=== PATIENT | female | born 1960 | race Caucasian/White ===

== ENCOUNTER → 2018-08-03 | Outpatient (CLI) | payer BC ==
[2018-08-03 11:45] LABS: BASO # 0.1 10^3/uL (0.0-0.2); BASO % 1.4 % (0.0-1.0); EOS # 0.2 10^3/uL (0.0-0.50); EOS % 3.3 % (0.0-3.0); HEMATOCRIT 40.9 % (36.0-47.0); HEMOGLOBIN 14.2 g/dl (12.0-15.5); LYMPH # 1.8 10^3/uL (1.5-4.5); LYMPH % 31.1 % (24.0-44.0); MEAN CORPUSCULAR HEMOGLOBIN 32.4 pg (27.0-33.0); MEAN CORPUSCULAR HGB CONC 34.7 g/dl (32.0-36.5); MEAN CORPUSCULAR VOLUME 93.4 fl (80.0-96.0); MONO # 0.7 10^3/uL (0.0-0.8); MONO % 12.5 % (0.0-5.0); NEUTROPHILS % 51.2 % (36.0-66.0); PLATELET COUNT, AUTOMATED 163 10^3/uL (150-450); RED BLOOD COUNT 4.38 10^6/uL (4.00-5.40); WHITE BLOOD COUNT 5.8 10^3/uL (4.0-10.0)
[2018-08-03 11:53] LABS: ALBUMIN 3.8 GM/DL (3.2-5.2); ALT/SGPT 37 U/L (12-78); BILIRUBIN,TOTAL 0.6 MG/DL (0.2-1.0); BLOOD UREA NITROGEN 11 MG/DL (7-18); CALCIUM LEVEL 9.1 MG/DL (8.5-10.1); CARBON DIOXIDE LEVEL 26 MEQ/L (21-32); CHLORIDE LEVEL 98 MEQ/L (98-107); CHOLESTEROL LEVEL 182 MG/DL (<200); CREATININE FOR GFR 0.68 MG/DL (0.55-1.30); GLOMERULAR FILTRATION RATE > 60.0 (>51); GLUCOSE, FASTING 80 MG/DL (70-100); HDL CHOLESTEROL 50 MG/DL (>40); LDL CHOLESTEROL 113 MG/DL (<100); NON-HDL-C 132 MG/DL; POTASSIUM SERUM 4.4 MEQ/L (3.5-5.1); SODIUM LEVEL 132 MEQ/L (136-145); THYROXINE (T4) 6.4 UG/DL (4.5-12.0); TOTAL PROTEIN 7.5 GM/DL (6.4-8.2); TRIGLYCERIDES LEVEL 97 MG/DL (<150)
== END ==
LOC: M LRY 08:46
PROVIDERS: ATTEND Physician Assistant Medical
DX: R53.83 Other fatigue (principal); I10 Essential (primary) hypertension; E78.2 Mixed hyperlipidemia

== ENCOUNTER → 2018-12-02 | Outpatient (REF) | payer BC | LOC: M SFHCPLAZ 18:19 | PROVIDERS: ATTEND Dermatology | DX: R21 Rash and other nonspecific skin eruption (principal) ==

== ENCOUNTER → 2018-12-10 | Outpatient (CLI) | payer BC ==
[2018-12-10 11:10] LABS: BASO # 0.1 10^3/uL (0.0-0.2); BASO % 1.1 % (0.0-1.0); EOS # 0.2 10^3/uL (0.0-0.50); EOS % 3.9 % (0.0-3.0); HEMATOCRIT 46.5 % (36.0-47.0); HEMOGLOBIN 16.2 g/dl (12.0-15.5); LYMPH # 1.5 10^3/uL (1.5-4.5); LYMPH % 26.2 % (24.0-44.0); MEAN CORPUSCULAR HEMOGLOBIN 33.5 pg (27.0-33.0); MEAN CORPUSCULAR HGB CONC 34.8 g/dl (32.0-36.5); MEAN CORPUSCULAR VOLUME 96.1 fl (80.0-96.0); MONO # 0.7 10^3/uL (0.0-0.8); MONO % 11.8 % (0.0-5.0); NEUTROPHILS # 3.2 10^3/uL (1.8-7.7); NEUTROPHILS % 56.3 % (36.0-66.0); RED BLOOD COUNT 4.84 10^6/uL (4.00-5.40); WHITE BLOOD COUNT 5.6 10^3/uL (4.0-10.0)
[2018-12-10 11:22] LABS: ALBUMIN 3.5 GM/DL (3.2-5.2); ALT/SGPT 43 U/L (12-78); BILIRUBIN,TOTAL 0.8 MG/DL (0.2-1.0); BLOOD UREA NITROGEN 11 MG/DL (7-18); CALCIUM LEVEL 8.9 MG/DL (8.5-10.1); CARBON DIOXIDE LEVEL 28 MEQ/L (21-32); CHLORIDE LEVEL 96 MEQ/L (98-107); CHOLESTEROL LEVEL 197 MG/DL (<200); FREE T4 0.81 NG/DL (0.76-1.46); GLOMERULAR FILTRATION RATE > 60.0 (>51); GLUCOSE, FASTING 86 MG/DL (70-100); HDL CHOLESTEROL 49 MG/DL (>40); LDL CHOLESTEROL 122 MG/DL (<100); NON-HDL-C 148 MG/DL; POTASSIUM SERUM 4.9 MEQ/L (3.5-5.1); SODIUM LEVEL 131 MEQ/L (136-145); TRIGLYCERIDES LEVEL 129 MG/DL (<150)
[2018-12-10 11:23] LABS: TOTAL 25(OH) VITAMIN D 10.2 NG/ML (30.0-100.0)
[2018-12-10 11:24] LABS: PLATELET COUNT, AUTOMATED 138 10^3/uL (150-450)
== END ==
LOC: M LRY 08:04
PROVIDERS: ATTEND Physician Assistant Medical
DX: R53.83 Other fatigue (principal); I10 Essential (primary) hypertension; E78.2 Mixed hyperlipidemia

== ENCOUNTER → 2018-12-24 | Outpatient (REF) | payer BC ==
[2018-12-24 11:24] LABS: BASO # 0.1 10^3/uL (0.0-0.2); BASO % 1.1 % (0.0-1.0); EOS # 0.3 10^3/uL (0.0-0.50); EOS % 4.6 % (0.0-3.0); HEMATOCRIT 45.9 % (36.0-47.0); HEMOGLOBIN 15.9 g/dl (12.0-15.5); LYMPH # 1.7 10^3/uL (1.5-4.5); LYMPH % 30.9 % (24.0-44.0); MEAN CORPUSCULAR HEMOGLOBIN 33.2 pg (27.0-33.0); MEAN CORPUSCULAR HGB CONC 34.6 g/dl (32.0-36.5); MEAN CORPUSCULAR VOLUME 95.8 fl (80.0-96.0); MONO # 0.4 10^3/uL (0.0-0.8); MONO % 8.1 % (0.0-5.0); NEUTROPHILS # 2.9 10^3/uL (1.8-7.7); NEUTROPHILS % 54.6 % (36.0-66.0); PLATELET COUNT, AUTOMATED 135 10^3/uL (150-450); RED BLOOD COUNT 4.79 10^6/uL (4.00-5.40); WHITE BLOOD COUNT 5.4 10^3/uL (4.0-10.0)
[2018-12-24 11:41] LABS: HEMOGLOBIN A1c 5.2 %
[2018-12-24 11:44] LABS: ALBUMIN 3.3 GM/DL (3.2-5.2); ALT/SGPT 40 U/L (12-78); BILIRUBIN,TOTAL 0.3 MG/DL (0.2-1.0); BLOOD UREA NITROGEN 15 MG/DL (7-18); CALCIUM LEVEL 8.5 MG/DL (8.5-10.1); CARBON DIOXIDE LEVEL 23 MEQ/L (21-32); CHLORIDE LEVEL 103 MEQ/L (98-107); CREATININE FOR GFR 0.68 MG/DL (0.55-1.30); FERRITIN 606 NG/ML (8-252); GLOMERULAR FILTRATION RATE > 60.0 (>51); GLUCOSE, FASTING 89 MG/DL (70-100); IRON (FE) 105 UG/DL (50-170); PERCENT SATURATION 40.9 % (13.2-45.0); POTASSIUM SERUM 4.2 MEQ/L (3.5-5.1); SODIUM LEVEL 134 MEQ/L (136-145); TOTAL IRON BINDING CAPACITY 257 UG/DL (250-450); TOTAL PROTEIN 7.4 GM/DL (6.4-8.2)
[2018-12-24 11:49] LABS: HEPATITIS B SURFACE ANTIBODY NEGATIVE (POSITIVE)
[2018-12-24 11:59] LABS: HEPATITIS B SURFACE ANTIGEN NEGATIVE (NEGATIVE)
== END ==
LOC: M SFHCPLAZ 08:29
PROVIDERS: ATTEND Dermatology
DX: R21 Rash and other nonspecific skin eruption (principal)

== ENCOUNTER → 2019-01-31 | Outpatient (REF) | payer BC ==
[~2019-01-31] MED LIST: BETA250027 PO; BYST10TA2 PO; CENT1TAB PO; COQ150CH PO; FISH1000 PO; LOSA50TA88 PO; LOVA20TA2 PO; NADO40TA PO; NAPR-885 PO; VITA1CAP25 PO
[2019-02-08 00:07] LABS: PORPHOBILINOGEN LEVEL URINE 0.4 mg/L (0.0-2.0)
== END ==
LOC: M SFHCPLAZ 14:51
PROVIDERS: ATTEND Dermatology
DX: R21 Rash and other nonspecific skin eruption (principal)

== ENCOUNTER → 2019-02-11 | Outpatient (REF) | payer BC ==
[2019-02-11 12:44] LABS: HEMOGLOBIN 16.3 g/dl (12.0-15.5); MEAN CORPUSCULAR HEMOGLOBIN 32.9 pg (27.0-33.0); MEAN CORPUSCULAR VOLUME 96.8 fl (80.0-96.0); PLATELET COUNT, AUTOMATED 139 10^3/uL (150-450); RED BLOOD COUNT 4.96 10^6/uL (4.00-5.40); WHITE BLOOD COUNT 7.4 10^3/uL (4.0-10.0)
== END ==
LOC: M SFHCLERA 08:32
PROVIDERS: ATTEND Dermatology
DX: E80.1 Porphyria cutanea tarda (principal)

== ENCOUNTER 2019-04-15 07:49 | Outpatient (CLI) | payer OTHER ==
[~2019-04-15] VITALS: Ht 162.6 cm; Wt 64.2 kg
[~2019-04-15 07:49] MED LIST changes: +BETA2500 PO; -BETA250027 PO; -VITA1CAP25 PO
[2019-04-15 08:05] VITALS: BP 158/72
[2019-04-15 08:50] VITALS: BP 139/62
[2019-04-15 10:12] LABS: BASO # 0.1 10^3/uL (0.0-0.2); BASO % 1.1 % (0.0-1.0); EOS # 0.3 10^3/uL (0.0-0.5); EOS % 3.5 % (0.0-3.0); HEMATOCRIT 42.2 % (36.0-47.0); HEMOGLOBIN 14.7 g/dl (12.0-15.5); LYMPH # 1.5 10^3/uL (1.5-5.0); LYMPH % 19.8 % (24.0-44.0); MEAN CORPUSCULAR HEMOGLOBIN 34.4 pg (27.0-33.0); MEAN CORPUSCULAR HGB CONC 34.8 g/dl (32.0-36.5); MEAN CORPUSCULAR VOLUME 98.8 fl (80.0-96.0); NEUTROPHILS # 4.5 10^3/uL (1.5-8.5); NEUTROPHILS % 60.5 % (36.0-66.0); PLATELET COUNT, AUTOMATED 167 10^3/uL (150-450); RED BLOOD COUNT 4.27 10^6/uL (4.00-5.40); WHITE BLOOD COUNT 7.4 10^3/uL (4.0-10.0)
== END 2019-04-15 08:50 | disposition home or self-care (01) ==
LOC: M INFU 07:49
PROVIDERS: ATTEND Dermatology
DX: E80.1 Porphyria cutanea tarda (principal)

== ENCOUNTER 2019-04-29 08:05 | Outpatient (CLI) | payer OTHER ==
[~2019-04-29] VITALS: Ht 162.6 cm; Wt 64.2 kg
[2019-04-29 08:22] VITALS: BP 139/62
[2019-04-29 09:20] VITALS: BP 140/82
[2019-04-29 09:24] LABS: HEMATOCRIT 40.9 % (36.0-47.0); HEMOGLOBIN 14.2 g/dl (12.0-15.5); MEAN CORPUSCULAR HEMOGLOBIN 34.1 pg (27.0-33.0); MEAN CORPUSCULAR HGB CONC 34.7 g/dl (32.0-36.5); MEAN CORPUSCULAR VOLUME 98.3 fl (80.0-96.0); PLATELET COUNT, AUTOMATED 119 10^3/uL (150-450); RED BLOOD COUNT 4.16 10^6/uL (4.00-5.40)
== END 2019-04-29 09:40 | disposition home or self-care (01) ==
LOC: M INFU 08:05
PROVIDERS: ATTEND Dermatology
DX: E80.1 Porphyria cutanea tarda (principal)

== ENCOUNTER → 2019-05-12 | Outpatient (REF) | payer OTHER | LOC: M SFHCPLAZ 08:47 | PROVIDERS: ATTEND Dermatology | DX: E80.1 Porphyria cutanea tarda (principal) ==

== ENCOUNTER 2019-05-27 06:51 | Outpatient (CLI) | payer OTHER ==
[~2019-05-27] VITALS: Ht 162.6 cm; Wt 64.2 kg
[2019-05-27 07:09] VITALS: BP 158/72
[2019-05-27 07:41] LABS: HEMATOCRIT 40.8 % (36.0-47.0); MEAN CORPUSCULAR HEMOGLOBIN 34.6 pg (27.0-33.0); MEAN CORPUSCULAR HGB CONC 34.3 g/dl (32.0-36.5); MEAN CORPUSCULAR VOLUME 100.7 fl (80.0-96.0); PLATELET COUNT, AUTOMATED 137 10^3/uL (150-450); RED BLOOD COUNT 4.05 10^6/uL (4.00-5.40); WHITE BLOOD COUNT 4.4 10^3/uL (4.0-10.0)
[2019-05-27 08:00] VITALS: BP 114/55
== END 2019-05-27 08:05 | disposition home or self-care (01) ==
LOC: M INFU 06:51
PROVIDERS: ATTEND Dermatology
DX: E80.1 Porphyria cutanea tarda (principal)

== ENCOUNTER → 2019-05-27 | Outpatient (CLI) | payer OTHER ==
[2019-05-27 08:35] LABS: BASO # 0.1 10^3/uL (0.0-0.2); BASO % 1.2 % (0.0-1.0); EOS # 0.1 10^3/uL (0.0-0.5); EOS % 3.3 % (0.0-3.0); HEMATOCRIT 41.3 % (36.0-47.0); HEMOGLOBIN 13.9 g/dl (12.0-15.5); LYMPH # 0.9 10^3/uL (1.5-5.0); LYMPH % 20.3 % (24.0-44.0); MEAN CORPUSCULAR HEMOGLOBIN 33.9 pg (27.0-33.0); MEAN CORPUSCULAR HGB CONC 33.7 g/dl (32.0-36.5); MEAN CORPUSCULAR VOLUME 100.7 fl (80.0-96.0); MONO # 0.5 10^3/uL (0.0-0.8); MONO % 12.6 % (0.0-5.0); NEUTROPHILS # 2.7 10^3/uL (1.5-8.5); NEUTROPHILS % 62.1 % (36.0-66.0); PLATELET COUNT, AUTOMATED 144 10^3/uL (150-450); WHITE BLOOD COUNT 4.3 10^3/uL (4.0-10.0)
[2019-05-27 09:18] LABS: ALBUMIN 3.4 GM/DL (3.2-5.2); ALT/SGPT 31 U/L (12-78); BILIRUBIN,TOTAL 0.8 MG/DL (0.2-1.0); BLOOD UREA NITROGEN 10 MG/DL (7-18); CALCIUM LEVEL 9.5 MG/DL (8.5-10.1); CARBON DIOXIDE LEVEL 29 MEQ/L (21-32); CHLORIDE LEVEL 99 MEQ/L (98-107); CHOLESTEROL LEVEL 166 MG/DL (<200); CREATININE FOR GFR 0.83 MG/DL (0.55-1.30); FREE T4 0.92 NG/DL (0.76-1.46); GLOMERULAR FILTRATION RATE > 60.0 (>51); GLUCOSE, FASTING 152 MG/DL (70-100); HDL CHOLESTEROL 50 MG/DL (>40); LDL CHOLESTEROL 86 MG/DL (<100); NON-HDL-C 116 MG/DL; POTASSIUM SERUM 3.3 MEQ/L (3.5-5.1); SODIUM LEVEL 135 MEQ/L (136-145); TOTAL PROTEIN 7.5 GM/DL (6.4-8.2); TRIGLYCERIDES LEVEL 150 MG/DL (<150)
[2019-05-27 09:51] LABS: TOTAL 25(OH) VITAMIN D 49.7 NG/ML (30.0-100.0)
== END ==
LOC: M LAB 07:04
PROVIDERS: ATTEND Physician Assistant Medical
DX: R53.83 Other fatigue (principal); I10 Essential (primary) hypertension; E78.2 Mixed hyperlipidemia; E55.9 Vitamin D deficiency, unspecified

== ENCOUNTER 2019-06-15 08:52 | Outpatient (CLI) | payer OTHER ==
[~2019-06-15] VITALS: Ht 162.6 cm; Wt 64.2 kg
[2019-06-15 08:55] VITALS: BP 140/64
[2019-06-15 09:52] LABS: HEMATOCRIT 38.1 % (36.0-47.0); HEMOGLOBIN 12.9 g/dl (12.0-15.5); MEAN CORPUSCULAR HEMOGLOBIN 33.9 pg (27.0-33.0); MEAN CORPUSCULAR HGB CONC 33.9 g/dl (32.0-36.5); MEAN CORPUSCULAR VOLUME 100.3 fl (80.0-96.0); PLATELET COUNT, AUTOMATED 138 10^3/uL (150-450); WHITE BLOOD COUNT 5.5 10^3/uL (4.0-10.0)
[2019-06-15] MEDS ORDERED: VITA1CAP25 PO (10:09)
[2019-06-15 10:15] VITALS: BP 142/60
== END 2019-06-15 10:15 | disposition home or self-care (01) ==
LOC: M INFU 08:52
PROVIDERS: ATTEND Dermatology
DX: E80.1 Porphyria cutanea tarda (principal)

== ENCOUNTER 2019-07-01 06:40 | Outpatient (CLI) | payer OTHER ==
[~2019-07-01] VITALS: Ht 162.6 cm; Wt 64.1 kg
[~2019-07-01 06:40] MED LIST changes: -BETA2500 PO; +BETA250027 PO; +VITA1CAP25 PO
[2019-07-01 06:45] VITALS: BP 160/92
[2019-07-01 07:20] VITALS: BP 156/80
[2019-07-01 07:36] LABS: HEMOGLOBIN 12.9 g/dl (12.0-15.5); MEAN CORPUSCULAR HEMOGLOBIN 33.6 pg (27.0-33.0); MEAN CORPUSCULAR HGB CONC 33.1 g/dl (32.0-36.5); MEAN CORPUSCULAR VOLUME 101.6 fl (80.0-96.0); PLATELET COUNT, AUTOMATED 132 10^3/uL (150-450); RED BLOOD COUNT 3.84 10^6/uL (4.00-5.40); WHITE BLOOD COUNT 5.7 10^3/uL (4.0-10.0)
[2019-07-01 07:44] VITALS: BP 164/84
== END 2019-07-01 07:45 | disposition home or self-care (01) ==
LOC: M INFU 06:40
PROVIDERS: ATTEND Dermatology
DX: E80.1 Porphyria cutanea tarda (principal)

== ENCOUNTER 2019-07-15 07:04 | Outpatient (CLI) | payer OTHER ==
[~2019-07-15] VITALS: Ht 162.6 cm; Wt 64.2 kg
[2019-07-15 07:22] VITALS: BP 173/72
[2019-07-15 07:33] VITALS: BP 108/52
[2019-07-15 07:51] LABS: HEMATOCRIT 38.1 % (36.0-47.0); HEMOGLOBIN 12.6 g/dl (12.0-15.5); MEAN CORPUSCULAR HEMOGLOBIN 34.3 pg (27.0-33.0); MEAN CORPUSCULAR HGB CONC 33.1 g/dl (32.0-36.5); MEAN CORPUSCULAR VOLUME 103.8 fl (80.0-96.0); PLATELET COUNT, AUTOMATED 156 10^3/uL (150-450); RED BLOOD COUNT 3.67 10^6/uL (4.00-5.40); WHITE BLOOD COUNT 6.6 10^3/uL (4.0-10.0)
[2019-07-15 08:10] VITALS: BP 167/74
== END 2019-07-15 08:10 | disposition home or self-care (01) ==
LOC: M INFU 07:04
PROVIDERS: ATTEND Dermatology
DX: E80.1 Porphyria cutanea tarda (principal)

== ENCOUNTER 2019-07-29 06:51 | Outpatient (CLI) | payer OTHER ==
[~2019-07-29] VITALS: Ht 162.6 cm; Wt 64.2 kg
[2019-07-29 06:55] VITALS: BP 177/77
[2019-07-29 07:30] VITALS: BP 174/74
[2019-07-29 07:30] LABS: HEMATOCRIT 34.8 % (36.0-47.0); HEMOGLOBIN 11.4 g/dl (12.0-15.5); MEAN CORPUSCULAR HEMOGLOBIN 33.7 pg (27.0-33.0); MEAN CORPUSCULAR HGB CONC 32.8 g/dl (32.0-36.5); PLATELET COUNT, AUTOMATED 120 10^3/uL (150-450); RED BLOOD COUNT 3.38 10^6/uL (4.00-5.40); WHITE BLOOD COUNT 4.6 10^3/uL (4.0-10.0)
[2019-07-29 07:45] VITALS: BP 187/79
== END 2019-07-29 07:45 | disposition home or self-care (01) ==
LOC: M INFU 06:51
PROVIDERS: ATTEND Dermatology
DX: E80.1 Porphyria cutanea tarda (principal)

== ENCOUNTER 2019-08-05 06:54 | Outpatient (CLI) | payer OTHER ==
[~2019-08-05] VITALS: Ht 162.6 cm; Wt 64.2 kg
[2019-08-05 07:06] VITALS: BP 143/83
[2019-08-05 07:28] VITALS: BP 107/53
[2019-08-05 07:50] VITALS: BP 143/66
== END 2019-08-05 07:45 | disposition home or self-care (01) ==
LOC: M INFU 06:54
PROVIDERS: ATTEND Dermatology
DX: E80.1 Porphyria cutanea tarda (principal)

== ENCOUNTER 2019-08-18 06:51 | Outpatient (CLI) | payer OTHER ==
[~2019-08-18] VITALS: Ht 162.6 cm; Wt 64.8 kg
[2019-08-18 07:05] VITALS: BP 164/72
[2019-08-18 07:20] VITALS: BP 142/72
[2019-08-18 07:29] LABS: HEMATOCRIT 36.2 % (36.0-47.0); HEMOGLOBIN 11.8 g/dl (12.0-15.5); MEAN CORPUSCULAR HGB CONC 32.6 g/dl (32.0-36.5); MEAN CORPUSCULAR VOLUME 104.3 fl (80.0-96.0); PLATELET COUNT, AUTOMATED 142 10^3/uL (150-450); RED BLOOD COUNT 3.47 10^6/uL (4.00-5.40); WHITE BLOOD COUNT 5.8 10^3/uL (4.0-10.0)
== END 2019-08-18 07:45 | disposition home or self-care (01) ==
LOC: M INFU 06:51
PROVIDERS: ATTEND Dermatology
DX: E80.1 Porphyria cutanea tarda (principal)

== ENCOUNTER 2019-08-25 14:44 | Outpatient (CLI) | payer OTHER ==
[~2019-08-25] VITALS: Ht 162.6 cm; Wt 64.2 kg
[2019-08-25 14:50] VITALS: BP 149/63
[2019-08-25 16:03] LABS: HEMATOCRIT 32.2 % (36.0-47.0); HEMOGLOBIN 10.2 g/dl (12.0-15.5); MEAN CORPUSCULAR HEMOGLOBIN 33.4 pg (27.0-33.0); MEAN CORPUSCULAR HGB CONC 31.7 g/dl (32.0-36.5); MEAN CORPUSCULAR VOLUME 105.6 fl (80.0-96.0); PLATELET COUNT, AUTOMATED 149 10^3/uL (150-450); RED BLOOD COUNT 3.05 10^6/uL (4.00-5.40); WHITE BLOOD COUNT 4.8 10^3/uL (4.0-10.0)
[2019-08-25 16:10] VITALS: BP 163/55
== END 2019-08-25 16:10 | disposition home or self-care (01) ==
LOC: M INFU 14:44
PROVIDERS: ATTEND Dermatology
DX: E80.1 Porphyria cutanea tarda (principal)

== ENCOUNTER 2019-09-21 14:16 | Outpatient (CLI) | payer OTHER ==
[~2019-09-21] VITALS: Ht 162.6 cm; Wt 64.2 kg
[2019-09-21 14:25] VITALS: BP 200/80
[2019-09-21 14:38] LABS: HEMOGLOBIN 12.4 g/dl (12.0-15.5); MEAN CORPUSCULAR HEMOGLOBIN 33.3 pg (27.0-33.0); MEAN CORPUSCULAR HGB CONC 33.5 g/dl (32.0-36.5); MEAN CORPUSCULAR VOLUME 99.5 fl (80.0-96.0); PLATELET COUNT, AUTOMATED 160 10^3/uL (150-450); RED BLOOD COUNT 3.72 10^6/uL (4.00-5.40); WHITE BLOOD COUNT 5.8 10^3/uL (4.0-10.0)
[2019-09-21 15:45] VITALS: BP 190/90
== END 2019-09-21 15:45 | disposition home or self-care (01) ==
LOC: M INFU 14:16
PROVIDERS: ATTEND Dermatology
DX: E80.1 Porphyria cutanea tarda (principal)

== ENCOUNTER → 2019-10-05 | Outpatient (CLI) | payer OTHER ==
[~2019-10-05] VITALS: Ht 162.6 cm; Wt 64.2 kg
[2019-10-05 15:15] VITALS: BP 159/62
[2019-10-05 16:04] LABS: HEMATOCRIT 33.9 % (36.0-47.0); MEAN CORPUSCULAR HEMOGLOBIN 31.5 pg (27.0-33.0); MEAN CORPUSCULAR HGB CONC 32.4 g/dl (32.0-36.5); MEAN CORPUSCULAR VOLUME 97.1 fl (80.0-96.0); PLATELET COUNT, AUTOMATED 121 10^3/uL (150-450); RED BLOOD COUNT 3.49 10^6/uL (4.00-5.40); WHITE BLOOD COUNT 4.3 10^3/uL (4.0-10.0)
[2019-10-05 16:32] LABS: FERRITIN 49 NG/ML (8-252); IRON (FE) 46 UG/DL (50-170)
== END ==
LOC: M INFU 15:13
PROVIDERS: ATTEND Dermatology
DX: E80.1 Porphyria cutanea tarda (principal)

== ENCOUNTER → 2019-11-10 | Outpatient (CLI) | payer OTHER ==
[2019-11-10 17:05] LABS: BASO % 0.9 % (0.0-1.0); EOS # 0.1 10^3/uL (0.0-0.5); EOS % 2.1 % (0.0-3.0); HEMATOCRIT 38.8 % (36.0-47.0); HEMOGLOBIN 12.5 g/dl (12.0-15.5); LYMPH # 1.1 10^3/uL (1.5-5.0); LYMPH % 24.4 % (24.0-44.0); MEAN CORPUSCULAR HGB CONC 32.2 g/dl (32.0-36.5); MEAN CORPUSCULAR VOLUME 93.3 fl (80.0-96.0); MONO # 0.6 10^3/uL (0.0-0.8); MONO % 13.1 % (0.0-5.0); NEUTROPHILS # 2.6 10^3/uL (1.5-8.5); PLATELET COUNT, AUTOMATED 114 10^3/uL (150-450); RED BLOOD COUNT 4.16 10^6/uL (4.00-5.40); WHITE BLOOD COUNT 4.4 10^3/uL (4.0-10.0)
[2019-11-10 17:27] LABS: ALBUMIN 3.4 GM/DL (3.2-5.2); ALT/SGPT 30 U/L (12-78); BILIRUBIN,TOTAL 0.9 MG/DL (0.2-1.0); BLOOD UREA NITROGEN 8 MG/DL (7-18); CARBON DIOXIDE LEVEL 30 MEQ/L (21-32); CHLORIDE LEVEL 97 MEQ/L (98-107); CHOLESTEROL LEVEL 158 MG/DL (<200); CHOLESTEROL RISK RATIO 2.821 (<5); CREATININE FOR GFR 0.72 MG/DL (0.55-1.30); FERRITIN 58 NG/ML (8-252); GLOMERULAR FILTRATION RATE > 60.0 (>51); GLUCOSE, FASTING 74 MG/DL (70-100); HDL CHOLESTEROL 56 MG/DL (>40); LDL CHOLESTEROL 82 MG/DL (<100); NON-HDL-C 102 MG/DL; POTASSIUM SERUM 4.1 MEQ/L (3.5-5.1); SODIUM LEVEL 134 MEQ/L (136-145); TOTAL PROTEIN 7.8 GM/DL (6.4-8.2); TRIGLYCERIDES LEVEL 98 MG/DL (<150)
[2019-11-11 11:20] LABS: FOLATE 6.6 NG/ML (>5.4); VITAMIN B12 LEVEL 291 PG/ML (247-911)
== END ==
LOC: M LRY 12:06
PROVIDERS: ATTEND Physician Assistant Medical
DX: R53.83 Other fatigue (principal); I10 Essential (primary) hypertension; E78.2 Mixed hyperlipidemia

== ENCOUNTER → 2019-11-10 | Outpatient (REF) | payer OTHER ==
[2019-11-10 16:54] LABS: APPEARANCE, URINE CLEAR (CLEAR); BACTERIA, URINE AUTO NEGATIVE (NEGATIVE); BILIRUBIN, URINE AUTO NEGATIVE (NEGATIVE); BLOOD, URINE BLOOD NEGATIVE (NEGATIVE); COLOR, URINE YELLOW (YELLOW); GLUCOSE, URINE (UA) AUTO NEGATIVE (NEGATIVE); KETONE, URINE AUTO NEGATIVE (NEGATIVE); LEUKOCYTE ESTERASE, URINE AUTO NEGATIVE (NEGATIVE); NITRITE, URINE AUTO NEGATIVE (NEGATIVE); PROTEIN, URINE AUTO 2+ mg/dL (NEGATIVE); RBC, URINE AUTO 0 /HPF (0-3); SPECIFIC GRAVITY URINE AUTO 1.004 (1.002-1.035); SQUAMOUS EPITHELIAL CELL UR AU 0 /HPF (0-6); UROBILINOGEN, URINE AUTO 0.2 mg/dL (0.0-2.0); WBC, URINE AUTO 1 /HPF (0-3)
== END ==
LOC: M SFHCLERA 11:46
PROVIDERS: ATTEND Physician Assistant
DX: R53.83 Other fatigue (principal); R80.9 Proteinuria, unspecified

== ENCOUNTER → 2020-03-09 | Outpatient (CLI) | payer OTHER ==
[~2020-03-09] MED LIST changes: +AMLO1TAB25; +ASPI81TA86 PO; +ATOR40TA75; +BUDE10.22; +CHAN1PAK13; +CLOP75TA2 PO; +FAMO40TA3; +HYDR200T3; +LOSA100T50; +MAGN1CAP PO; +POTA20TA6
--- NOTE | 2020-04-13 11:47 | REP ---
BILATERAL LOWER EXTREMITY ARTERIAL DOPPLER ULTRASOUND HISTORY: Atherosclerosis, intermittent claudication bilateral legs. FINDINGS: Ankle brachial indices are measured at 0.69 on the right and 0.82 on the left. Moderate plaquing is observed in the common femoral arteries bilaterally. Proximal superficial femoral artery narrowing is visible, left greater than right, without high-grade stenosis. Monophasic waveforms are noted in the right common femoral and profunda femoral artery. Distal DAY CARE HOME PROVIDER, proximal DAY CARE HOME PROVIDER, and distal SADE monophasic waveforms are noted on the right as well. Aortic peak systolic velocity in the distal aorta is 23 cm/s. There is a 5:1 velocity ratio stenosis in the distal right common iliac artery just prior to the origin of the internal iliac artery. VELOCITY CHART BILATERAL LOWER EXTREMITIES RIGHT (cm/s) LEFT (cm/s) ASCENCION 71/389 49/97 EIA 121 132 SHOULDER PUNCHER 115 84 Profunda 90 108 Proximal SFA 99 71 Mid SFA 83 82 Distal SFA 56 70 Popliteal 26 60 Proximal SADE 39 45 Tibioperoneal trunk 25 25 Proximal DAY CARE HOME PROVIDER 47 47 Distal DAY CARE HOME PROVIDER 39 31 Distal SADE 12 32 MTDD
== END ==
LOC: M RAD 07:45
PROVIDERS: ATTEND Surgery Vascular Surgery
DX: I73.9 Peripheral vascular disease, unspecified (principal)

== ENCOUNTER → 2020-04-02 | Outpatient (CLI) | payer OTHER ==
[2020-04-02 13:23] LABS: HEMATOCRIT 40.6 % (36.0-47.0); HEMOGLOBIN 13.4 g/dl (12.0-15.5); MEAN CORPUSCULAR HEMOGLOBIN 32.8 pg (27.0-33.0); MEAN CORPUSCULAR VOLUME 99.3 fl (80.0-96.0); PLATELET COUNT, AUTOMATED 185 10^3/uL (150-450); RED BLOOD COUNT 4.09 10^6/uL (4.00-5.40); WHITE BLOOD COUNT 6.9 10^3/uL (4.0-10.0)
[2020-04-02 13:47] LABS: BLOOD UREA NITROGEN 15 MG/DL (7-18); CARBON DIOXIDE LEVEL 26 MEQ/L (21-32); CHLORIDE LEVEL 103 MEQ/L (98-107); CREATININE FOR GFR 0.84 MG/DL (0.55-1.30); GLOMERULAR FILTRATION RATE > 60.0 (>51); GLUCOSE, FASTING 78 MG/DL (70-100); POTASSIUM SERUM 3.4 MEQ/L (3.5-5.1); SODIUM LEVEL 137 MEQ/L (136-145)
== END ==
LOC: M WUC 09:55
PROVIDERS: ATTEND Physician Assistant
DX: I70.213 Atherosclerosis of native arteries of extremities with intermittent claudication, bilateral legs (principal)

== ENCOUNTER → 2020-04-05 | Outpatient (CLI) | payer OTHER ==
--- NOTE | 2020-04-19 09:43 | REP ---
RENAL ULTRASOUND: 04/05/20 CLINICAL: Elevated blood pressures despite medical intervention. TECHNIQUE: Real time camarena scale and color Doppler evaluation using curved array transducer. FINDINGS: The kidneys are normal in reniform shape and echogenicity without hydronephrosis, nephrolithiasis, cystic orrenal mass lesion. The right kidney measures 11.5 x 5.1 x 5.0cm. The left kidney measures 10.2 x 4.0 x 4.1cm with suggestions for central column of Fito. The bladder is under distended. Doppler interrogation as follows: RIGHT KIDNEY: Peak renal artery velocity: 154 cm/s Renal aortic ratio: 3.3 Resistive indices: 0.67-0.82 Acceleration times: 0.030-0.038 LEFT KIDNEY: Peak renal artery velocity: 123 cm/s Renal aortic ratio: 2.6 Resistive indices: 0.61-.070 Acceleration times: 0.017-0.031 IMPRESSION: 1. Normal appearance to the bilateral kidneys without hydronephrosis or obvious abnormality. 2. Findings suggesting mild right renal artery stenosis with elevated renal aortic ratios. [facility]
== END ==
LOC: M RAD 07:42
PROVIDERS: ATTEND Internal Medicine Nephrology
DX: N18.3 Chronic kidney disease, stage 3 (moderate) (principal); I70.1 Atherosclerosis of renal artery

== ENCOUNTER → 2020-04-11 | Outpatient (CLI) | payer OTHER | LOC: M LABSMTC 11:48 | PROVIDERS: ATTEND Ophthalmology | DX: Z20.828 Contact with and (suspected) exposure to other viral communicable diseases (principal) | CPT/HCPCS: C9803; U0003 ==

== ENCOUNTER → 2020-04-17 | Outpatient (CLI) | payer OTHER ==
[~2020-04-17] MED LIST changes: +ACETAMINOPHEN TAB 650MG DOSE (2X325MG) PO PRN; +CLOPIDOGREL 75 MG TAB As Ordered ONE; +CLOPIDOGREL 75 MG TAB PO ONE; +ISOVUE-300 61% 50ML VIAL As Ordered ONE; +LIDOCAINE 1% MDV 20ML VIAL As Ordered ONE; +MIDAZOLAM INJ 2MG/2ML VIAL (J2250 PER 1MG) As Ordered ONE; +fentaNYL 100 MCG/2 ML INJECTION (J3010) As Ordered ONE; +hydrALAZINE 20MG/ML 1ML VIAL (J0360 PER 20MG) As Ordered ONE
--- NOTE | 2020-04-17 09:00 | ROOPDOC ---
[facility] Report Of Operation Report of Operation DATE OF PROCEDURE: 04/17/20 PREPROCEDURE DIAGNOSES: Atherosclerosis of the [place] arteries with lifestyle limiting claudication bilateral lower extremities POSTPROCEDURE DIAGNOSES: Same PROCEDURE: 1. Ultrasound-guided access bilateral common femoral arteries 2. Aortoiliofemoral arteriogram 3. Selection right common femoral artery and superficial femoral artery with right lower extremity runoff 4. Predilation bilateral common iliac arteries with 5 x 100 Geraldine balloonsd 5. Stenting right external iliac artery to proximal common iliac artery from distal to proximal with 7 x 27, 7 x 57, 8 x 57, and 8 x 27 express balloon expandable stents 6. Stenting left external iliac artery to proximal common iliac artery from distal to proximal with 7 x 57, 8 x 57, and 8 x 27 express balloon expandable stents 7. Completion arteriograms 8. Mynx closure bilateral common femoral arteries SURGEON: Suraj St MD ANESTHESIA: Local anesthesia 13 mL lidocaine. Moderate intravenous conscious sedation was supervised by Dr. St. The patient was independently tita tored by registered nurse assigned to the Department of radiology using automated blood pressure, EKG, and pulse oximetry. Detailed sedation record is permanently stored in the hospital information system. Following is a brief sedation record: Start time 07:34, stop time 08:30, Versed 1.5 mg IV, fentanyl 100 g IV, heparin 4000 units IV, hydralazine 10 mg IV. CONTRAST: 50 mL Isovue-300 INDICATION FOR PROCEDURE: This is a 59-year-old patient with tobacco dependence who has had worsening bilateral lower extremity claudication. It is short distance and long recovery time. This is been lifestyle limiting. Risks benefits and alternatives to an arteriogram potential intervention were explained to the patient she is agreeable to proceed. Informed consent was obtained. INTERPRETATION: 1. The distal aorta is heavily calcified and ectatic but patent. On the right, the patient has extensive plaque throughout the common iliac artery, external iliac artery, and hypogastric. All 3 are patent but heavily stenotic throughout. There are focal areas of stenosis up to 80-90%, diffusely 30-40%. There is some plaque noted in the common femoral artery but there is no obstruction into the origins of the SFA and profunda. On the left, there is heavily calcified plaque throughout the left common iliac artery, hypogastric, and proximal mid external iliac artery. There are focal areas of stenosis in the 60-70% range, diffusely 30-40% stenotic. Distal to that, the external iliac arteries widely patent with good flow into widely patent common femoral artery. 2. The right lower extremity runoff is intact. There is excellent flow through the profunda in the SFA, but popliteal arteries widely patent, and her three- vessel tibial runoff. The best flow to the foot is through the posterior tibial which is large in the flow is rapid. The flow through the peroneal and anterior tibial is a little slower, due to diminutive size of the vessels. No significant stenosis in the runoff was noted. 3. After predilation of the iliac system with 5 x 100 balloons, we felt there was adequate flow lumen to allow balloon expandable stent placement without dislodging the stents off of the balloons. No extravasation was noted. 4. After stenting the bilateral external and common iliac arteries to the origin, not kissing stents, there was widely patent flow through both iliac systems, with flow into the hypogastric arteries, and no dissections or residual stenoses were noted. No extravasation was noted. REPORT OF OPERATION: The patient was brought to the angiographic suite in stable condition. Bilateral groins were prepped and draped in a sterile fashion. A timeout was performed. Sedation was administered without complication. The patient did receive a single dose of hydralazine for systolic blood pressure greater than 180 mmHg after sedation, due to the fact she did not take her anti- hypertensive medications this morning. Her blood pressure remained stable less than 160 mmHg for the rest of the case. Local anesthesia was administered to the skin and subcutaneous tissue over the left common femoral artery. A microneedle was used to access the artery under ultrasound guidance. A wire was passed through this access needle was removed. A 4 Hungarian sheath was placed and flushed with saline. Glidewire and flushing catheter were advanced in the distal aorta. Aortoiliofemoral arteriograms were performed, please see interpretation above. We went up and over the bifurcation but had difficulty navigating the wire into the external iliac artery as it continually selected the hypogastric artery due to stenosis in plaque. A quick arteriogram on the right helped his navigate the wire. We then selected the right common femoral and superficial femoral artery and right lower extremity arteriogram was performed with runoff. Please see interpretation above. We then exchange the sheath in the left groin for 7 Hungarian sheath with with flushed with saline. Local anesthesia was administered to the skin and subcutaneous tissue over the right common femoral artery. A microneedle was used to access the artery under ultrasound guidance. A wire was passed through this access and the needle was removed. A 4 Hungarian sheath was placed and flushed with saline. A Glidewire was then advanced into the distal aorta and the sheath was exchanged for 7 Hungarian sheath. The sheath was flushed with saline. On the right, we deployed a 7 x 27 express balloon expandable stent at the distal external iliac artery. We then placed bilateral external iliac artery 7 x 57 balloon expandable stents, with a 1 cm overlap on the right with 7 x 27 stent, and a quick arteriogram confirmed the stents are widely patent with no extravasation. We then extended this proximally with 8 x 57 express balloon expandable stents with a 1 cm overlap on the 7 x 57 stents, and a quick contrast injection confirmed are widely patent with no extravasation. We then extended this to the origin of the common iliac arteries, without extending into the aorta, with 8 x 27 express stents with a 1 cm overlap on the existing 8 x 57 stents. Following this, there was widely patent inflow through the iliac system, no residual stenoses noted. Good flow into the hypogastric's, and no extravasat ion noted. No distal dissections were noted either. We then deployed Mynx closure devices in both common femoral arteries with good hemostasis. Pressure was held for 10 minutes and sterile dressings were applied. The patient was then taken to recovery in stable condition. She tolerated the procedure and the sedation well. ESTIMATED BLOOD LOSS: Approximately 5 mL. COMPLICATIONS: None. PLAN: We will start the patient on 75 mg Plavix daily. She will need to continue her aspirin as well. She will need to stay on the Plavix for 60 days. We have again encouraged her to quit smoking and reminded her that all of these interventions will feel if she continues to smoke. She should continue walking to improve circulation. No strenuous exercise or lifting greater than 5 pounds for 48 hours. We'll see her back in a week to check her groin access sites and see how she is doing. We appreciate the opportunity to participate in the care of this patient. SURAJ ST MD Apr 17, 2020 09:00
[2020-04-17 12:00] VITALS: BP 187/80
== END ==
LOC: M IRPRO 06:18
PROVIDERS: ATTEND Surgery Vascular Surgery
DX: I70.213 Atherosclerosis of native arteries of extremities with intermittent claudication, bilateral legs (principal); I10 Essential (primary) hypertension; I65.23 Occlusion and stenosis of bilateral carotid arteries; E78.00 Pure hypercholesterolemia, unspecified; F17.210 Nicotine dependence, cigarettes, uncomplicated; Z79.82 Long term (current) use of aspirin
CPT/HCPCS: 37221; 75716; 75774; 99152; 99153; C1725; C1760; C1769; C1876; C1887; C1894; J0360; J1644; J2250; J3010; Q9967

== ENCOUNTER → 2020-05-04 | Outpatient (CLI) | payer OTHER ==
[~2020-05-04] MED LIST changes: -ACETAMINOPHEN TAB 650MG DOSE (2X325MG) PO PRN; -CLOPIDOGREL 75 MG TAB As Ordered ONE; -CLOPIDOGREL 75 MG TAB PO ONE; -ISOVUE-300 61% 50ML VIAL As Ordered ONE; -LIDOCAINE 1% MDV 20ML VIAL As Ordered ONE; -MIDAZOLAM INJ 2MG/2ML VIAL (J2250 PER 1MG) As Ordered ONE; -fentaNYL 100 MCG/2 ML INJECTION (J3010) As Ordered ONE; -hydrALAZINE 20MG/ML 1ML VIAL (J0360 PER 20MG) As Ordered ONE
--- NOTE | 2020-05-04 10:36 | REP ---
INDICATION: ATHSCL [facility] ART W/ CLAUDICATION peripheral vascular disease. Status post iliac stents. COMPARISON: March 09, 2020 prior sonography.. TECHNIQUE: Bilateral lower extremity duplex arterial ultrasound is performed. FINDINGS: Ankle brachial indices are normal bilaterally, measured at 1.0 on both sides. Significant improvement is noted from the prior study. Improved inflow at the common femoral artery level. Peak systolic velocities are improved distally on both sides. Bilateral patent iliac stents are noted. No significant stenosis is appreciated. Right lower extremity arterial Doppler velocity chart: Abdominal aorta 69 cm/S Right ASCENCION 99 cm/S Right EIA 141 INGREDIENT SCALER HELPER PSV 176 cm/S Performed to 241 Proximal SFA 242 Mid SFA 133 Distal SFA 105 Popliteal 88 Proximal SADE 99 Tibial-peroneal trunk 103 Proximal GEOMETRY PROFESSOR 73 Distal GEOMETRY PROFESSOR 110 Distal SADE 38 Left lower extremity arterial Doppler velocity chart: Abdominal aorta 69 cm/S Left ASCENCION 118 cm/S Left EIA 159 Left INGREDIENT SCALER HELPER PSV 172 cm/S Profundal 178 Proximal SFA to a 5 Mid SFA 136 Distal SFA 144 Popliteal 153 Proximal SADE 82 Tibial-peroneal trunk 90 Proximal GEOMETRY PROFESSOR 68 Distal GEOMETRY PROFESSOR 106 Distal SADE 112 IMPRESSION: Bilateral improvement noted post bilateral iliac stent procedure. <Electronically signed by Timbo Reed > 05/04/20 1030
== END ==
LOC: M RAD 08:36
PROVIDERS: ATTEND Physician Assistant
DX: I70.213 Atherosclerosis of native arteries of extremities with intermittent claudication, bilateral legs (principal)

== ENCOUNTER → 2020-08-17 | Outpatient (REF) | payer OTHER ==
[2020-08-17 16:47] LABS: APPEARANCE, URINE CLEAR (CLEAR); BACTERIA, URINE AUTO NEGATIVE (NEGATIVE); BILIRUBIN, URINE AUTO NEGATIVE (NEGATIVE); BLOOD, URINE BLOOD NEGATIVE (NEGATIVE); COLOR, URINE YELLOW (YELLOW); GLUCOSE, URINE (UA) AUTO NEGATIVE (NEGATIVE); KETONE, URINE AUTO NEGATIVE (NEGATIVE); LEUKOCYTE ESTERASE, URINE AUTO NEGATIVE (NEGATIVE); MUCUS, URINE SMALL (NEGATIVE); NITRITE, URINE AUTO NEGATIVE (NEGATIVE); PROTEIN, URINE AUTO 2+ mg/dL (NEGATIVE); RBC, URINE AUTO 0 /HPF (0-3); SPECIFIC GRAVITY URINE AUTO 1.009 (1.002-1.035); SQUAMOUS EPITHELIAL CELL UR AU 1 /HPF (0-6); UROBILINOGEN, URINE AUTO 0.2 mg/dL (0.0-2.0); WBC, URINE AUTO 2 /HPF (0-3)
[2020-08-17 17:07] LABS: CREATININE,RANDOM URINE 85.9 MG/DL; TOTAL PROTEIN,RANDOM URINE 87.5 MG/DL (0.0-12.0)
== END ==
LOC: M SFHCRHEU 14:00
PROVIDERS: ATTEND Internal Medicine
DX: R80.9 Proteinuria, unspecified (principal)

== ENCOUNTER → 2020-08-20 | Outpatient (CLI) | payer OTHER ==
[~2020-08-20] MED LIST changes: +ISOVUE-370 76% 100ML VIAL As Ordered ONE
--- NOTE | 2020-08-20 09:39 | REP ---
INDICATION: ENLARGED LYMPH NODES COMPARISON: 03/02/2020 TECHNIQUE: Axial contrast enhanced images from the thoracic inlet to the upper abdomen with coronal and sagittal reformations using 75 ml Isovue 370 intravenous contrast material. This CT examination was performed using the following dose reduction techniques: Automated exposure control, adjustment of mA and/or kv according to the patient's size, and use of iterative reconstruction technique. FINDINGS: The lung mahmood demonstrate advanced emphysematous changes with bronchiectasis, scattered small bullae, and minimal scattered scarring similar to prior examination. No acute consolidation, obvious nodule or mass lesion. No pleural effusion. No pneumothorax. The mediastinum again demonstrates stable pretracheal, subcarinal and aortopulmonary window adenopathy with lymph nodes measuring up to approximately 16 mm. No significant change from prior examination. Extensive atherosclerotic changes to the thoracic aorta and coronary arteries again noted without aortic aneurysm or dissection. No cardiomegaly or pericardial effusion. Surrounding musculoskeletal structures are intact and without acute osseous abnormality. Upper abdomen demonstrates normal bilateral adrenal glands. IMPRESSION: 1. Stable advanced emphysematous changes and stable nonspecific mediastinal adenopathy possibly chronic/reactive. 2. No acute mediastinal or pleuroparenchymal process appreciated. 3. Significant atherosclerotic disease. <Electronically signed by Luis Vazquez > 08/20/20 0955
== END ==
LOC: M RAD 08:57
PROVIDERS: ATTEND Internal Medicine Pulmonary Disease
DX: R59.0 Localized enlarged lymph nodes (principal)
CPT/HCPCS: 71260; Q9967

== ENCOUNTER 2020-08-27 14:32 | Outpatient (CLI) | payer OTHER ==
[~2020-08-27 14:32] MED LIST changes: -ISOVUE-370 76% 100ML VIAL As Ordered ONE
[2020-08-27 15:00] VITALS: BP 158/98
[2020-08-27 15:47] LABS: HEMATOCRIT 37.3 % (36.0-47.0); HEMOGLOBIN 12.8 g/dl (12.0-15.5); MEAN CORPUSCULAR HEMOGLOBIN 33.9 pg (27.0-33.0); MEAN CORPUSCULAR HGB CONC 34.3 g/dl (32.0-36.5); MEAN CORPUSCULAR VOLUME 98.7 fl (80.0-96.0); RED BLOOD COUNT 3.78 10^6/uL (4.00-5.40); WHITE BLOOD COUNT 4.9 10^3/uL (4.0-10.0)
[2020-08-27 16:04] LABS: PLATELET COUNT, AUTOMATED 70 10^3/uL (150-450)
[2020-08-27 16:15] LABS: FERRITIN 156 NG/ML (8-252); IRON (FE) 159 UG/DL (50-170)
[2020-08-27 16:55] VITALS: BP 132/78
== END 2020-08-27 16:55 | disposition home or self-care (01) ==
LOC: M INFU 14:32
PROVIDERS: ATTEND Dermatology
DX: E80.1 Porphyria cutanea tarda (principal)

== ENCOUNTER 2020-09-10 14:36 | Outpatient (CLI) | payer OTHER ==
[~2020-09-10] VITALS: Ht 157.5 cm; Wt 61.3 kg
[2020-09-10 14:45] VITALS: BP 148/70
[2020-09-10 15:07] LABS: HEMATOCRIT 35.4 % (36.0-47.0); MEAN CORPUSCULAR HEMOGLOBIN 33.9 pg (27.0-33.0); MEAN CORPUSCULAR HGB CONC 33.9 g/dl (32.0-36.5); PLATELET COUNT, AUTOMATED 108 10^3/uL (150-450); RED BLOOD COUNT 3.54 10^6/uL (4.00-5.40); WHITE BLOOD COUNT 6.3 10^3/uL (4.0-10.0)
[2020-09-10 15:37] LABS: FERRITIN 105 NG/ML (8-252); IRON (FE) 71 UG/DL (50-170)
[2020-09-10 16:05] VITALS: BP 119/66
== END 2020-09-10 16:05 | disposition home or self-care (01) ==
LOC: M INFU 14:36
PROVIDERS: ATTEND Dermatology
DX: E80.1 Porphyria cutanea tarda (principal)

== ENCOUNTER 2020-09-24 14:24 | Outpatient (CLI) | payer OTHER ==
[~2020-09-24] VITALS: Ht 162.6 cm; Wt 65.9 kg
[2020-09-24 14:55] LABS: HEMATOCRIT 33.8 % (36.0-47.0); HEMOGLOBIN 11.3 g/dl (12.0-15.5); MEAN CORPUSCULAR HEMOGLOBIN 34.1 pg (27.0-33.0); MEAN CORPUSCULAR HGB CONC 33.4 g/dl (32.0-36.5); MEAN CORPUSCULAR VOLUME 102.1 fl (80.0-96.0); RED BLOOD COUNT 3.31 10^6/uL (4.00-5.40); WHITE BLOOD COUNT 8.5 10^3/uL (4.0-10.0)
[2020-09-24 15:01] LABS: PLATELET COUNT, AUTOMATED 78 10^3/uL (150-450)
[2020-09-24 15:26] LABS: FERRITIN 154 NG/ML (8-252); IRON (FE) 59 UG/DL (50-170)
[2020-09-24 16:00] VITALS: BP 134/64
== END 2020-09-24 16:00 | disposition home or self-care (01) ==
LOC: M INFU 14:24
PROVIDERS: ATTEND Dermatology
DX: E80.1 Porphyria cutanea tarda (principal)

== ENCOUNTER 2020-10-08 14:04 | Outpatient (CLI) | payer OTHER ==
[~2020-10-08] VITALS: Ht 162.6 cm; Wt 65.9 kg
[2020-10-08 14:29] LABS: HEMATOCRIT 32.9 % (36.0-47.0); HEMOGLOBIN 11.2 g/dl (12.0-15.5); MEAN CORPUSCULAR HEMOGLOBIN 34.7 pg (27.0-33.0); MEAN CORPUSCULAR VOLUME 101.9 fl (80.0-96.0); PLATELET COUNT, AUTOMATED 114 10^3/uL (150-450); RED BLOOD COUNT 3.23 10^6/uL (4.00-5.40); WHITE BLOOD COUNT 5.3 10^3/uL (4.0-10.0)
[2020-10-08 15:00] LABS: FERRITIN 94 NG/ML (8-252); IRON (FE) 50 UG/DL (50-170)
== END 2020-10-08 15:04 | disposition home or self-care (01) ==
LOC: M INFU 14:04
PROVIDERS: ATTEND Dermatology
DX: E80.1 Porphyria cutanea tarda (principal)

== ENCOUNTER → 2020-10-22 | Outpatient (CLI) | payer OTHER ==
[2020-10-22 18:36] LABS: INR 1.16; PROTHROMBIN TIME 15.1 SECONDS (12.5-14.3)
[2020-10-22 18:37] LABS: PARTIAL THROMBOPLASTIN TIME 34.1 SECONDS (24.2-38.5)
[2020-10-22 18:51] LABS: ALBUMIN 4.1 GM/DL (3.2-5.2); BILIRUBIN,TOTAL 0.6 MG/DL (0.2-1.0); CALCIUM LEVEL 9.5 MG/DL (8.8-10.2); CREATININE FOR GFR 1.22 MG/DL (0.55-1.30); GLOMERULAR FILTRATION RATE 47.9 (>45); POTASSIUM SERUM 4.3 MEQ/L (3.5-5.1); TOTAL PROTEIN 8.3 GM/DL (6.4-8.2)
== END ==
LOC: M PLALAB 13:45
PROVIDERS: ATTEND Internal Medicine Pulmonary Disease
DX: J44.9 Chronic obstructive pulmonary disease, unspecified (principal)

== ENCOUNTER 2020-11-06 13:48 | Outpatient (CLI) | payer OTHER ==
[2020-11-06 14:20] VITALS: BP 168/92
[2020-11-06 14:42] LABS: HEMATOCRIT 30.4 % (36.0-47.0); HEMOGLOBIN 10.1 g/dl (12.0-15.5); MEAN CORPUSCULAR HEMOGLOBIN 33.1 pg (27.0-33.0); MEAN CORPUSCULAR HGB CONC 33.2 g/dl (32.0-36.5); MEAN CORPUSCULAR VOLUME 99.7 fl (80.0-96.0); RED BLOOD COUNT 3.05 10^6/uL (4.00-5.40); WHITE BLOOD COUNT 4.6 10^3/uL (4.0-10.0)
[2020-11-06 14:45] LABS: PLATELET COUNT, AUTOMATED 82 10^3/uL (150-450)
[2020-11-06 14:54] LABS: FERRITIN 65 NG/ML (8-252); IRON (FE) 35 UG/DL (50-170)
== END 2020-11-06 15:20 | disposition home or self-care (01) ==
LOC: M INFU 13:48
PROVIDERS: ATTEND Dermatology
DX: E80.1 Porphyria cutanea tarda (principal)

== ENCOUNTER → 2020-11-16 | Outpatient (CLI) | payer OTHER ==
[~2020-11-16] MED LIST changes: +AMLO1TAB25 PO; +ASPI81CH33 PO; -ATOR40TA75; +ATOR40TA75 PO; +INCR1INH INH; -LOSA100T50; +LOSA100T50 PO; +MAGN64TASA PO
--- NOTE | 2020-11-16 14:33 | REP ---
INDICATION: ABN FINDING OF LUNG COMPARISON: Multiple the latest 08/20/2020 TECHNIQUE: Limited noncontrast enhanced standard helical technique FINDINGS: The mediastinum and pulmonary suresh appear unchanged although this noncontrast enhanced examination is difficult to compare to the prior contrast enhanced examination. Mediastinal adenopathy is again seen. No pleural or pericardial effusions have developed. There is no significant change in the appearance of the imaged upper abdomen or imaged osseous structures. Diffuse low density is seen throughout the hepatic parenchyma. There are bilateral renovascular calcifications. Evaluation of the lung mahmood again shows advanced emphysematous changes with lung field hyperexpansion, parenchymal bulla, and a small pleural blebs and affecting the upper lobe region to the greatest degree. Mm sized nodular densities are again seen scattered throughout both lung mahmood in a stable appearing fashion. No definite new abnormal nodules, masses, or opacities have developed. IMPRESSION: Stable appearing chronic changes as described above. <Electronically signed by Edgar Florence > 11/16/20 2075
== END ==
LOC: M RAD 14:06
PROVIDERS: ATTEND Internal Medicine Pulmonary Disease
DX: R91.8 Other nonspecific abnormal finding of lung field (principal)

== ENCOUNTER → 2020-11-18 | Outpatient (CLI) | payer OTHER | LOC: M LABSMTC 09:15 | PROVIDERS: ATTEND Anesthesiology | DX: Z01.818 Encounter for other preprocedural examination (principal); Z20.822 Contact with and (suspected) exposure to COVID-19 ==

== ENCOUNTER 2020-11-19 07:13 | Day surgery (SDC) | payer OTHER ==
[~2020-11-19] VITALS: Ht 157.5 cm; Wt 62.1 kg
[~2020-11-19 07:13] MED LIST changes: +ALBUTEROL SULFATE 2.5 MG/0.5 ML INH NEB SOLN NEB ONE; +LIDOCAINE 4% INJ 5ML AMP NEB ONE; +LR 1,000 ML IV ONE
[2020-11-19] MEDS ORDERED: CETACAINE SPRAY 5GM As Ordered ONE (07:53)
[2020-11-19] MEDS ORDERED: THROMBIN SOLN 5,000 UNITS VIAL As Ordered ONE (07:53)
[2020-11-19] MEDS ORDERED: EPINEPHrine 1MG/10ML SYRINGE 1.5IN As Ordered ONE (07:53)
[2020-11-19] MEDS ORDERED: LIDOCAINE 1% SDV 30ML VIAL As Ordered ONE (07:53)
[2020-11-19] MEDS ORDERED: SUGAMMADEX SODIUM 500 MG/5 ML VIAL (BRIDION) As Ordered ONE (07:57)
[2020-11-19] MEDS ORDERED: propofoL 200 MG/20 ML VIAL As Ordered ONE (07:57)
[2020-11-19] MEDS ORDERED: ROCURONIUM BROMIDE 50 MG/5 ML VIAL As Ordered ONE (07:57)
[2020-11-19] MEDS ORDERED: ONDANSETRON 4MG/2ML VIAL As Ordered ONE (07:57)
[2020-11-19] MEDS ORDERED: dexameTHASONE 4 MG/ML 1ML VIAL (J1100 PER 1MG) As Ordered ONE (07:57)
[2020-11-19] MEDS ORDERED: LIDOCAINE 2% 100MG/5ML SDV (FOR ANES.) As Ordered ONE (07:57)
[2020-11-19] MEDS ORDERED: MIDAZOLAM INJ 2MG/2ML VIAL (J2250 PER 1MG) As Ordered ONE (07:58)
[2020-11-19] MEDS ORDERED: fentaNYL 100 MCG/2 ML INJECTION (J3010) As Ordered ONE (07:58)
[2020-11-19] MEDS ORDERED: ESMOLOL INJ 100MG/10ML VIAL As Ordered ONE (09:02)
[2020-11-19] MEDS ORDERED: LABETALOL 100MG/20ML VIAL As Ordered ONE ×2 (09:15→11:41)
--- NOTE | 2020-11-19 09:33 | REP ---
INDICATION: BILATERAL UPPER AND LOWER LOBE ABNORMALITY. COMPARISON: None. TECHNIQUE: Three views. 2 minutes 50 seconds of fluoroscopy time is reported peer FINDINGS: A sequence of 3 last image hold fluoroscopically obtained spot radiographs of the chest document bronchoscopic manipulation procedure. IMPRESSION: Procedural imaging. <Electronically signed by Timbo Reed > 11/19/20 0983
--- NOTE | 2020-11-19 09:47 | ECGEPIP ---
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 Clincal correlation advised Electronically Signed on 11-19-2020 9:46:46 EDT by Félix Conde
[2020-11-19 09:59] LABS: APPEARANCE CLOTTED (CLEAR); COLOR PINK (COLORLESS); SOURCE RIGHT LOWER LOBE
[2020-11-19 10:02] LABS: APPEARANCE CLOTTED (CLEAR); COLOR RED (COLORLESS); SOURCE RIGHT MIDDLE LOBE
--- NOTE | 2020-11-19 10:07 | ROOR ---
Patient Name: Jocelyn Lovell Procedure Date: 11/19/2020 7:57 AM Date of : 1960 Admit Type: Outpatient Age: 60 Room: Main OR Note Status: Finalized Attending MD: Sylvia Boykin MD Procedure: Bronchoscopy Indications: Abnormal CT scan of chest, Mediastinal adenopathy Providers: Sylvia Boykin MD (Doctor), Amando Mcfadden DO (1st Assisting Doctor) Referring MD: None Requesting Physician: Medicines: Lidocaine 4% via nebulizer with Albuterol 2.5 mg, General Anesthesia, Epinephrine 1 mg/10 mL topical 1 mL, Cetacaine topical Complications: No immediate complications. Estimated blood loss: Minimal Procedure: Pre-Anesthesia Assessment: - Prior to the procedure, a History and Physical was performed, and patient medications and allergies were reviewed. The patient's tolerance of previous anesthesia was also reviewed. The risks and benefits of the procedure and the sedation options and risks were discussed with the patient. All questions were answered, and informed consent was obtained. Prior Anticoagulants: The patient has taken Plavix (clopidogrel), last dose was 7 days prior to procedure. ASA Grade Assessment: III - A patient with severe systemic disease. After reviewing the risks and benefits, the patient was deemed in satisfactory condition to undergo the procedure. - Patient identification and proposed procedure were verified prior to the procedure by the physician, the nurse, the anesthesiologist, the financial aid advisor and the equipment engineering technician. The procedure was verified in the procedure room. The Bronchoscope was introduced through the mouth, via the endotracheal tube (the patient was intubated for the procedure) and advanced to the tracheobronchial tree of both lungs. The procedure was accomplished without difficulty. The patient tolerated the procedure well. Findings: The endotracheal tube is in good position. The visualized portion of the trachea is of normal caliber. The kurtis is sharp. The tracheobronchial tree was examined to at least the first subsegmental level. Bronchial mucosa and anatomy are normal; the mucosa appeared pale, some scattered webbing and pitting. There are no endobronchial lesions, there were thick white/clear mucoid secretions noted throughout. [employer] Robotic Electromagnetic navigation bronchoscopy was performed. The CT scan was used for planning purposes. A virtual bronchoscopic image was generated using the planning software. The targets in the lateral segment of the right middle lobe and in the lateral basal segment of the left lower lobe were marked and a pathway was created. After a complete airway exam, the robotic EM navigation phase was then begun to locate the target lesion(s). Positioning was confirmed using the Olympus radial probe ultrasound catheter and fluoroscopy. Transbronchial biopsies of a nodule were performed in the lateral segment of the right middle lobe and in the lateral basal segment of the left lower lobe using forceps and sent for histopathology examination. The procedure was guided by fluoroscopy. Transbronchial biopsy technique was selected because the sampling site was not visible endoscopically. Bronchoalveolar lavage was performed in the RML lateral segment (B4) of the lung and sent for cell count, bacterial culture, viral smears & culture, and fungal & AFB analysis and cytology. The return was blood-tinged. Mucous plugs were present in the return fluid. Bronchoalveolar lavage was performed in the LLL lateral basal segments (B9) of the lung and sent for cell count, bacterial culture, viral smears & culture, and fungal & AFB analysis and cytology. The return was blood-tinged. Mucous plugs were present in the return fluid. An endobronchial ultrasound endoscope was utilized in order to assist with fine needle aspiration in the right paratracheal area and in the subcarinal area. Transbronchial needle aspirations of lymph nodes were performed in the right paratracheal area and in the subcarinal area using an Olympus EBUS-TBNA 21 gauge needle and sent for routine cytology. The procedure was guided by ultrasound. Transbronchial needle aspiration technique was selected because the sampling site was not visible endoscopically. Impression: - Abnormal CT scan of chest - Mediastinal adenopathy - The airway examination was normal. - Robotic Electromagnetic navigation bronchoscopy was performed. - Transbronchial lung biopsies were performed. - Bronchoalveolar lavage was performed RML - Bronchoalveolar lavage was performed RLL - Endobronchial ultrasound was performed. - A transbronchial needle aspiration was performed in LN Recommendation: - Await test results. Procedure Code(s): --- Professional --- 09355, Bronchoscopy, rigid or flexible, including fluoroscopic guidance, when performed; with transbronchial needle aspiration biopsy(s), trachea, main stem and/or lobar bronchus(i) 74143, Bronchoscopy, rigid or flexible, including fluoroscopic guidance, when performed; with transbronchial lung biopsy(s), single lobe 12158, Bronchoscopy, rigid or flexible, including fluoroscopic guidance, when performed; with bronchial alveolar lavage 32209, Bronchoscopy, rigid or flexible, including fluoroscopic guidance, when performed; with computer-assisted, image-guided navigation (List separately in addition to code for primary procedure[s]) 44184, Bronchoscopy, rigid or flexible, including fluoroscopic guidance, when performed; with transendoscopic endobronchial ultrasound (EBUS) during bronchoscopic diagnostic or therapeutic intervention(s) for peripheral lesion(s) (List separately in addition to code for primary procedure[s]) 13718, Bronchoscopy, rigid or flexible, including fluoroscopic guidance, when performed; with transbronchial lung biopsy(s), each additional lobe (List separately in addition to code for primary procedure) CPT copyright 2019 [employer]. All rights reserved. The codes documented in this report are preliminary and upon residential installer review may be revised to meet current compliance requirements. Attending Participation: I personally performed the entire procedure. Sylvia Boykin MD 11/19/2020 10:06:43 AM Amando Mcfadden DO Number of Addenda: 0 Note Initiated On: 11/19/2020 7:57 AM
--- NOTE | 2020-11-19 10:12 | REP ---
INDICATION: POST OP IN PACU/ BRONCHOSCOPY. COMPARISON: Comparison chest CT study November 16, 2020.. TECHNIQUE: Portable semi-erect AP chest radiograph. FINDINGS: There is diffuse interstitial lung disease again noted. There is no evidence of pneumothorax or hydrothorax. Old healed rib fractures noted on the right. Oxygen delivery tubing and EKG electrodes are seen. IMPRESSION: No complication noted <Electronically signed by Timbo Reed > 11/19/20 1000
[2020-11-19] MEDS ORDERED: ONDANSETRON 4MG/2ML VIAL IV PRN (10:15)
[2020-11-19] MEDS ORDERED: HYDROMORPHONE HCL 0.5 MG/ 0.5 ML SYRINGE (J1170 PER 1) IV PRN (10:15)
[2020-11-19] MEDS ORDERED: fentaNYL 100 MCG/2 ML INJECTION (J3010) IV PRN (10:15)
[2020-11-19] MEDS ORDERED: oxyCODONE 5MG TAB PO PRN (10:15)
[2020-11-19] MEDS ORDERED: LR 1,000 ML IV SCH (10:15)
[2020-11-19] MEDS ORDERED: ALBUTEROL SULFATE 2.5 MG/0.5 ML INH NEB SOLN INH ONE (10:50)
[2020-11-19] MEDS: LABETALOL 100MG/20ML VIAL IV PRN ×5 (11:43→12:32)
[2020-11-19] MEDS ORDERED: hydrALAZINE 20MG/ML 1ML VIAL (J0360 PER 20MG) As Ordered ONE (12:04)
[2020-11-19] MEDS: hydrALAZINE 20MG/ML 1ML VIAL (J0360 PER 20MG) IV PRN ×4 (12:06→12:21)
[2020-11-19 12:32] VITALS: BP 187/74
[2020-11-19 13:30] VITALS: BP 149/70
--- NOTE | 2020-11-23 14:12 | ROOR ---
Patient Name: Jocelyn Lovell Procedure Date: 11/23/2020 1:24 PM Date of : 1960 Age: 60 Room: [facility] Gender: Female Note Status: Finalized Procedure: Colonoscopy Indications: Screening for colorectal malignant neoplasm Providers: Trung Gayle MD Referring MD: Barbara POTTER MD Requesting Provider: Medicines: Monitored Anesthesia Care Complications: No immediate complications. Procedure: Pre-Anesthesia Assessment: - Prior to the procedure, a History and Physical was performed, and patient medications and allergies were reviewed. The patient is competent. The risks and benefits of the procedure and the sedation options and risks were discussed with the patient. All questions were answered and informed consent was obtained. Patient identification and proposed procedure were verified by the physician, the nurse and the anesthesiologist in the procedure room. Prophylactic Antibiotics: The patient does not require prophylactic antibiotics. Prior Anticoagulants: The patient has taken no previous anticoagulant or antiplatelet agents. ASA Grade Assessment: II - A patient with mild systemic disease. After reviewing the risks and benefits, the patient was deemed in satisfactory condition to undergo the procedure. The anesthesia plan was to use monitored anesthesia care (MAC). Immediately prior to administration of medications, the patient was re-assessed for adequacy to receive sedatives. The heart rate, respiratory rate, oxygen saturations, blood pressure, adequacy of pulmonary ventilation, and response to care were monitored throughout the procedure. The physical status of the patient was re-assessed after the procedure. The Colonoscope was introduced through the anus and advanced to the terminal ileum, with identification of the appendiceal orifice and IC valve. The colonoscopy was performed without difficulty. The patient tolerated the procedure well. The quality of the bowel preparation was fair. The terminal ileum, ileocecal valve, appendiceal orifice, and rectum were photographed. Scope insertion time was 2 minutes. Scope withdrawal time was 9 minutes. The total duration of the procedure was 11 minutes. Findings: The perianal and digital rectal examinations were normal. The terminal ileum appeared normal. A 20 mm polyp was found in the transverse colon. The polyp was flat. The polyp was removed with a hot snare. Resection and retrieval were complete. To close a defect after polypectomy, three hemostatic clips were successfully placed. There was no bleeding at the end of the procedure. Verification of patient identification for the specimen was done by the physician and nurse using the patient's name, date and medical record number. Estimated blood loss was minimal. Many small and large-mouthed diverticula were found in the sigmoid colon. There was no evidence of diverticular bleeding. No additional abnormalities were found on retroflexion. Impression: - Preparation of the colon was fair. - The examined portion of the ileum was normal. - One 20 mm polyp in the transverse colon, removed with a hot snare. Resected and retrieved. Clips were placed. - Moderate diverticulosis in the sigmoid colon. There was no evidence of diverticular bleeding. Recommendation: - Patient has a contact number available for emergencies. The signs and symptoms of potential delayed complications were discussed with the patient. Return to normal activities tomorrow. Written discharge instructions were provided to the patient. - High fiber diet. - Continue present medications. - Repeat colonoscopy in 1 year because the bowel preparation was suboptimal and for surveillance based on pathology results. - Return to GI clinic in [facility] (address [address], [address], [place], [facility]) in 4 -- 6 weeks. Please call GI clinic @ [phone] for apppointment date and time. - Return to primary care physician. Procedure Code(s): --- Professional --- 08074, Colonoscopy, flexible; with removal of tumor(s), polyp(s), or other lesion(s) by snare technique Diagnosis Code(s): --- Professional --- Z12.11, Encounter for screening for malignant neoplasm of colon K63.5, Polyp of colon K57.30, Diverticulosis of large intestine without perforation or abscess without bleeding CPT copyright 2019 [employer]. All rights reserved. The codes documented in this report are preliminary and upon grill attendant review may be revised to meet current compliance requirements. Trung Gayle MD Trung Gayle MD 11/23/2020 2:12:30 PM Electronically signed by Trung Gayle MD Number of Addenda: 0 Note Initiated On: 11/23/2020 1:24 PM Estimated Blood Loss: Estimated blood loss was minimal.
== END 2020-11-19 13:35 | disposition home or self-care (01) ==
LOC: M SDC 07:13
PROVIDERS: ATTEND Internal Medicine Pulmonary Disease
DX: R91.8 Other nonspecific abnormal finding of lung field (principal); J44.9 Chronic obstructive pulmonary disease, unspecified; F17.218 Nicotine dependence, cigarettes, with other nicotine-induced disorders; N18.9 Chronic kidney disease, unspecified; I12.9 Hypertensive chronic kidney disease with stage 1 through stage 4 chronic kidney disease, or unspecified chronic kidney disease; K21.9 Gastro-esophageal reflux disease without esophagitis; D64.9 Anemia, unspecified; Z79.02 Long term (current) use of antithrombotics/antiplatelets; Z79.82 Long term (current) use of aspirin; Z79.899 Other long term (current) drug therapy
CPT/HCPCS: 31624; 31627; 31628; 31629; 31632; 31654; 71045; 76000; 87070; 87102; 87116; 87205; 87206; 88108; 88173; 88305; 88313; 93005; J0360; J1100; J2250; J2405; J3010; S2900

== ENCOUNTER → 2020-11-19 | Outpatient (CLI) | payer OTHER | LOC: M LABSMTC 13:41 | PROVIDERS: ATTEND Anesthesiology | DX: Z01.812 Encounter for preprocedural laboratory examination (principal) ==

== ENCOUNTER 2020-11-23 10:46 | Observation (INO) | payer OTHER ==
[~2020-11-23] VITALS: Ht 157.5 cm; Wt 62.2 kg
[~2020-11-23 10:46] MED LIST changes: -ALBUTEROL SULFATE 2.5 MG/0.5 ML INH NEB SOLN NEB ONE; -LIDOCAINE 4% INJ 5ML AMP NEB ONE; -LR 1,000 ML IV ONE; +NS 1,000 ML IV ONE
[2020-11-23] MEDS ORDERED: ALBUTEROL SULFATE 2.5 MG/0.5 ML INH NEB SOLN INH ONE (11:25)
[2020-11-23] MEDS ORDERED: LIDOCAINE 2% 100MG/5ML SDV (FOR ANES.) As Ordered ONE (12:42)
[2020-11-23] MEDS ORDERED: propofoL 200 MG/20 ML VIAL As Ordered ONE ×2 (12:42→13:47)
[2020-11-23] MEDS ORDERED: ePHEDrine SULFATE 25 MG/5 ML(5MG/ML) SYRINGE As Ordered ONE ×2 (12:47→13:47)
--- NOTE | 2020-11-23 14:57 | REP ---
INDICATION: hypoxia, SOB. COMPARISON: Comparison portable chest x-ray November 19, 2020. TECHNIQUE: Portable upright AP chest radiograph. FINDINGS: The heart is enlarged unchanged from the prior study. Interstitial markings are diffusely prominent. This is similar to the prior study from November 19, 2020 as well. No pleural effusion is seen. There are old healed rib fractures on the right. No pneumothorax or hydrothorax.. IMPRESSION: Cardiomegaly and diffuse interstitial lung disease again noted. No pleural effusion seen. Old healed rib fractures on the right.. <Electronically signed by Timbo Reed > 11/23/20 7502
[2020-11-23] MEDS ORDERED: IPRATROPIUM 0.5MG/ALBUTEROL 2.5MG INH SOL UD 3ML (DUONEB) NEB PRN (16:55)
[2020-11-23 17:48] LABS: HEMOGLOBIN 10.4 g/dl (12.0-15.5); MEAN CORPUSCULAR HEMOGLOBIN 31.9 pg (27.0-33.0); MEAN CORPUSCULAR HGB CONC 31.5 g/dl (32.0-36.5); MEAN CORPUSCULAR VOLUME 101.2 fl (80.0-96.0); PLATELET COUNT, AUTOMATED 107 10^3/uL (150-450); RED BLOOD COUNT 3.26 10^6/uL (4.00-5.40); WHITE BLOOD COUNT 4.5 10^3/uL (4.0-10.0)
[2020-11-23 18:00] VITALS: BP 168/68
[2020-11-23 18:02] LABS: INR 1.14; PROTHROMBIN TIME 14.9 SECONDS (12.5-14.3)
[2020-11-23 18:03] LABS: ALBUMIN 3.4 GM/DL (3.2-5.2); BILIRUBIN,TOTAL 0.5 MG/DL (0.2-1.0); CALCIUM LEVEL 8.5 MG/DL (8.8-10.2); CREATININE FOR GFR 1.25 MG/DL (0.55-1.30); GLOMERULAR FILTRATION RATE 46.5 (>45); PARTIAL THROMBOPLASTIN TIME 31.2 SECONDS (24.2-38.5); POTASSIUM SERUM 3.7 MEQ/L (3.5-5.1); TOTAL PROTEIN 7.2 GM/DL (6.4-8.2)
[2020-11-23 18:05] VITALS: O2SAT 91
[2020-11-23] MEDS ORDERED: IPRA6SP NARES (18:38)
[2020-11-23] MEDS ORDERED: TOPI25TA10 PO (18:38)
--- NOTE | 2020-11-23 19:18 | HPEPDOC ---
General Date of Admission November 23, 2020 Date of Service: November 23, 2020 Chief Complaint The patient is a 60-year-old female admitted with a reason for visit of hypoxia after colonoscopy Source: Patient History of Present Illness Mrs. Lovell is a 60 year old current smoke with COPD who is here with hypoxia. She was scheduled for colonoscopy and EGD today for CRC screening and anemia, but only performed the colonoscopy due to hypoxia. Patient is not on oxygen at home, but here desaturated down to 77 at room air. Admission was requested. When I saw the patient, she felt that she over-exerted her self this week. She had one doctor's appointment last Thursday, a bronchoscopy on Thursday, another doctor's appointment on Thursday, and an EGD and Colonoscopy today. Otherwise, her dyspnea is chronic, but she does feel that her cough has become more productive recently. She could not tell me when it started. Otherwise denies sick contacts, fever/chills, chest pain, abdominal pain, or dysuria. Patient will be placed in observation for hypoxia. Home Medications Scheduled Aspirin (Aspirin) 81 Mg Tab.chew, 81 MG PO DAILY, (Reported) Atorvastatin Calcium (Atorvastatin Calcium) 40 Mg Tablet, 40 MG PO QHS, (Reported) Ipratropium [place] (Ipratropium [place]) 15 Ml [place], 2 SPRAY NARES BID, (Repor phyllis) Losartan Potassium (Losartan Potassium) 100 Mg Tablet, 100 MG PO QHS, (Reported) Nebivolol HCl (Bystolic) 10 Mg Tablet, 10 MG PO DAILY, (Reported) Topiramate (Topiramate) 25 Mg Tablet, 25 MG PO DAILY, (Reported) Umeclidinium [place] (Incruse Ellipta) 62.5 Mcg Blst.w.dev, 2 PUFFS INH QHS, (Reported) Allergies Coded Allergies: No Known Drug Allergies (Verified Allergy, Unknown, 04/17/20) Past Medical History Medical History 1. COPD 2. Hypertension 3. Hyperlipidemia 4. Porphyria cutanea tarda Surgical History 1. Right eye cataract 2. 3. Hemorrhoidectomy 4. Cardiac stent Family History Father: , history of unspecified heart disease Mother: , history of cerebral artery occlusion with cerebral infarction Social History * Smoker: current smoker Alcohol: occationally (Last drink Thursday, reports "Little bit" of Gin) Drugs: denies A-FIB/CHADSVASC A-FIB History Current/History of A-Fib/PAF?: No Review of Systems Constitutional: Denies: Chills, Fever Eyes: Denies: Vision change ENT: Denies: Sore Throat Skin: Denies: Rash Pulmonary: Reports: Dyspnea (chronic), Cough (More productive recently) Cardiovascular: Denies: Chest Pain Gastrointestinal: Denies: Nausea, Abdominal Pain Genitourinary: Denies: Dysuria Hematologic: Denies: Bruising Neurological: Denies: Numbness Psych: Denies: Anxiety, Depression Physical Examination General Exam: Positive: Alert, Cooperative, Other (Pursed lip breathing) Eye Exam: Positive: EOMI; Negative: Sclera icteric ENT Exam: Positive: Atraumatic Neck Exam: Positive: Supple Chest Exam: Positive: Rhonchi, Other (course) Heart Exam: Positive: Rate Normal, Regular Rhythm Abdomen Exam: Positive: Normal bowel sounds, Soft; Negative: Tenderness Extremity Exam: Negative: Edema Neuro Exam: Positive: Strength at 5/5 X4 ext, Cranial Nerves 3-12 NL Psych Exam: Positive: Mental status NL, Mood NL Vital Signs Vital Signs Date Time Temp Pulse Resp B/P (MAP) Pulse Ox O2 Delivery O2 Flow Rate FiO2 11/23/20 13:55 96.8 68 20 146/76 (99) 98 Room Air 11/23/20 11:50 4.0 Assessment/Plan Mrs. Lovell is a 60 year old current smoke with COPD who is here with hypoxia after colonoscopy. CXR was obtained which demonstrates chronic findings, no acute disease noted. Patient will be admitted overnight for observation. Will obtain labs and a CT angio chest pending renal function results. Goal oxygen saturation is 88 to 92 for patient with COPD. Will order PRN and scheduled duonebs. Will start steroids and azithromycin. No signs of pneumonia on CXR Plan / VTE VTE Prophylaxis Ordered?: Yes Plan Plan 1. Hypoxia -May be secondary to COPD exacerbation -Will obtain labs and imaging -Goal oxygen between 88% and 92% -Duonebs, IV steroids, and IV azithromycin (no pneumonia seen on CXR) 2. Hypertension -Continue Nebivolol and Losartan 3. Hyperlipidemia -Continue atorvastatin 4. DVT ppx -SCD and TEDs Disposition: Pending clinical improvement ROB DUKE DO November 23, 2020 17:23
[2020-11-23] MEDS ORDERED: AZITHROMYCIN INJ 500 MG, VIAL MATE ADAPTER 1 EACH in NS 250 ML IV SCH (20:00)
[2020-11-23] MEDS: IPRATROPIUM 0.5MG/ALBUTEROL 2.5MG INH SOL UD 3ML (DUONEB) NEB SCH (20:01)
[2020-11-23] MEDS ORDERED: ISOVUE-370 76% 100ML VIAL As Ordered ONE (20:19)
[2020-11-23] MEDS: methylPREDNISolone 40MG 1ML VIAL IV SCH (20:49)
[2020-11-23] MEDS: IPRATROPIUM 0.06% NASAL SPRAY 15 ML (ATROVENT) SCH (20:49)
[2020-11-23] MEDS ORDERED: ATORVASTATIN 20 MG TAB PO SCH (21:00)
[2020-11-23] MEDS ORDERED: LOSARTAN 50MG TABLET PO SCH (21:00)
--- NOTE | 2020-11-23 21:18 | REPVR ---
PROCEDURE INFORMATION: Exam: CTA Chest With Contrast Exam date and time: 11/23/2020 8:22 PM Age: 60 years old Clinical indication: Other: Hypoxia TECHNIQUE: Imaging protocol: Computed tomographic angiography of the chest with contrast. 3D rendering (Not supervised by radiologist): MIP and/or 3D reconstructed images were created by the technologist. Radiation optimization: All CT scans at this facility use at least one of these dose optimization techniques: automated exposure control; mA and/or kV adjustment per patient size (includes targeted exams where dose is matched to clinical indication); or iterative reconstruction. Contrast material: ISOVUE 370; Contrast volume: 75 ml; Contrast route: INTRAVENOUS (IV); COMPARISON: CT Chest without contrast 11/16/2020 2:17 PM FINDINGS: Pulmonary arteries: Main pulmonary artery is mildly dilated. Aorta: Unremarkable. No aortic aneurysm. No aortic dissection. Lungs: Changes of advanced emphysema present, similar to the prior exam. Bronchial wall thickening with some endobronchial fluid is noted in the lung bases, greater on the left. Reticulonodular opacities are again demonstrated in the lung bases, greater on the left. No other airspace consolidation or masses. Pleural spaces: Unremarkable. No pneumothorax. No pleural effusion. Heart: Unremarkable. No cardiomegaly. No pericardial effusion. Lymph nodes: Unremarkable. No enlarged lymph nodes. Bones/joints: Unremarkable. No acute fracture. Soft tissues: Unremarkable. IMPRESSION: 1. Emphysema. 2. Bronchial wall thickening and endobronchial fluid with reticulonodular opacities suggesting COPD exacerbation versus viral/atypical airways disease. 3. No pulmonary embolism. Electronically signed by: Oniel Pavon On 11/23/2020 21:18:33 PM
[2020-11-23 22:00] VITALS: BP 180/82
--- NOTE | 2020-11-23 22:16 | ECGEPIP ---
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 Electronically Signed on 11-23-2020 22:15:41 EDT by Akil Ward
[2020-11-24] MEDS: IPRATROPIUM 0.5MG/ALBUTEROL 2.5MG INH SOL UD 3ML (DUONEB) NEB SCH ×3 (01:57→13:12)
[2020-11-24 04:32] VITALS: O2SAT 94
[2020-11-24 06:00] VITALS: BP 164/72
[2020-11-24 06:18] LABS: HEMATOCRIT 30.6 % (36.0-47.0); HEMOGLOBIN 9.9 g/dl (12.0-15.5); MEAN CORPUSCULAR HEMOGLOBIN 31.2 pg (27.0-33.0); MEAN CORPUSCULAR HGB CONC 32.4 g/dl (32.0-36.5); MEAN CORPUSCULAR VOLUME 96.5 fl (80.0-96.0); PLATELET COUNT, AUTOMATED 104 10^3/uL (150-450); RED BLOOD COUNT 3.17 10^6/uL (4.00-5.40); WHITE BLOOD COUNT 4.3 10^3/uL (4.0-10.0)
[2020-11-24 06:45] LABS: CALCIUM LEVEL 8.3 MG/DL (8.8-10.2); CREATININE FOR GFR 1.11 MG/DL (0.55-1.30); GLOMERULAR FILTRATION RATE 53.4 (>45); POTASSIUM SERUM 4.7 MEQ/L (3.5-5.1)
[2020-11-24] MEDS ORDERED: TOPIRAMATE (TopAMAX) 25 MG TAB PO SCH (09:00)
[2020-11-24] MEDS ORDERED: amLODIPine 5 MG TAB PO SCH (09:00)
[2020-11-24] MEDS ORDERED: NEBIVOLOL 5 MG TAB (BYSTOLIC) PO SCH (09:00)
[2020-11-24] MEDS: methylPREDNISolone 40MG 1ML VIAL IV SCH (09:32)
[2020-11-24] MEDS: IPRATROPIUM 0.06% NASAL SPRAY 15 ML (ATROVENT) SCH (09:35)
[2020-11-24 09:36] VITALS: O2SAT 97
[2020-11-24] MEDS ORDERED: AZIT500T5 PO (12:31)
[2020-11-24] MEDS ORDERED: PRED10TA2 PO (12:31)
[2020-11-24] MEDS ORDERED: AMLO1TAB24 PO (13:16)
[2020-11-24 13:30] VITALS: BP 190/82
[2020-11-24 14:00] VITALS: BP 182/84
[2020-11-24] MEDS ORDERED: amLODIPine 5 MG TAB PO ONE (14:00)
--- NOTE | 2020-11-24 21:07 | DS.PDOC ---
Discharge Summary General Date of Admission November 23, 2020 at 16:50 Date of Discharge November 24, 2020 Discharge Summary PROCEDURES PERFORMED DURING STAY: None ADMITTING DIAGNOSES: 1. COPD exacerbation 2. Hypertension 3. Hyperlipidemia DISCHARGE DIAGNOSES: 1. COPD exacerbation 2. Hypertension 3. Hyperlipidemia COMPLICATIONS/CHIEF COMPLAINT: Copd Exacerbation. HISTORY OF PRESENT ILLNESS: Mrs. Lovell is a 60 year old current smoke with COPD who is here with hypoxia. She was scheduled for colonoscopy and EGD today for CRC screening and anemia, but only performed the colonoscopy due to hypoxia. Patient is not on oxygen at home, but here desaturated down to 77 at room air. Admission was requested. When I saw the patient, she felt that she over-exerted her self this week. She had one doctor's appointment last Thursday, a bronchoscopy on Thursday, another doctor's appointment on Thursday, and an EGD and Colonoscopy today. Otherwise, her dyspnea is chronic, but she does feel that her cough has become more productive recently. She could not tell me when it started. Otherwise denies sick contacts, fever/chills, chest pain, abdominal pain, or dysuria. Patient will be placed in observation for hypoxia. HOSPITAL COURSE: Overnight, she was kept on oxygen, but in the morning, we were able to take her off of oxygen. Her lungs sounded clear and she was saturating around 94 at room air. Ordered HSE for discharge. Patient was upset about HSE. Patient was anxious to go home and was stressed. She did well and passed HSE, but her blood pressure was elevated. Gave her a dose of amlodipine. Blood pressure was still elevated with SBP at 180. I feel that most of this is from anxiety and stress. I will send her home with amlodipine, but will strongly encourage her to measure her blood pressure at home and record the results to bring to her PCP. Otherwise, I will send her home with prednisone taper and azit hromycin. Patient was discharged home today. DISCHARGE MEDICATIONS: Please see below. ALLERGIES: Please see below. PHYSICAL EXAMINATION ON DISCHARGE: VITAL SIGNS: Please see below. GENERAL: Comfortable, in no apparent distress HEENT: Head normocephalic, atraumatic NECK: Supple CARDIOVASCULAR EXAMINATION: Regular rate and rhythm RESPIRATORY EXAMINATION: Lungs clear to auscultation bilaterally ABDOMINAL EXAMINATION: Soft, non-tender, normal bowel sounds EXTREMITIES: No pitting edema bilaterally SKIN: Warm and dry NEUROLOGICAL EXAMINATION: CN 3-12 grossly intact PSYCHIATRIC EXAMINATION: Anxious and jittery LABORATORY DATA: Please see below. IMAGING: Radiologist interpretation CT angio chest 1. Emphysema. 2. Bronchial wall thickening and endobronchial fluid with reticulonodular opacities suggesting COPD exacerbation versus viral/atypical airways disease. 3. No pulmonary embolism. PROGNOSIS: Good ACTIVITY: As tolerated. DIET: 2gm sodium DISCHARGE PLAN: Home DISPOSITION: 01 Home, Self-Care. DISCHARGE INSTRUCTIONS: 1. Follow up with PCP within 1 week 2. Measure your blood pressure twice a day at home and record results, bring to your PCP's appointment 3. Request pulmonary referral to help manage COPD. Patient may need pulmonary clearance for next procedure as she had COPD exacerbation after colonoscopy ITEMS TO FOLLOWUP ON ON OUTPATIENT: 1. Blood pressure management DISCHARGE CONDITION: Stable. Total time spent on discharge planning, discharge summary, and medication reconciliation: 50 minutes Vital Signs/I&Os Vital Signs Date Time Temp Pulse Resp B/P (MAP) Pulse Ox O2 Delivery O2 Flow Rate FiO2 11/24/20 14:00 97.9 88 18 182/84 (116) 93 Room Air 11/24/20 09:40 6.0 28 I&O- Last 24 Hours up to 6 AM 11/24/20 06:00 Intake Total 2005 ml Output Total 500 ml Balance 1505 ml Laboratory Data Labs 24H Laboratory Tests 2 11/24/20 05:57: Nucleated Red Blood Cells % (auto) 0.0, Anion Gap 9, Glomerular Filtration Rate 53.4, Calcium Level 8.3L CBC/BMP Laboratory Tests 11/24/20 05:57 Discharge Medications Scheduled Amlodipine Besylate (Amlodipine Besylate) 5 Mg Tablet, 5 MG PO DAILY Aspirin (Aspirin) 81 Mg Tab.chew, 81 MG PO DAILY, (Reported) Atorvastatin Calcium (Atorvastatin Calcium) 40 Mg Tablet, 40 MG PO QHS, (Reported) Azithromycin (Azithromycin) 500 Mg Tablet, 1 TAB PO DAILY Ipratropium [place] (Ipratropium [place]) 15 Ml [place], 2 SPRAY NARES BID, (Reported) Losartan Potassium (Losartan Potassium) 100 Mg Tablet, 100 MG PO QHS, (Reported) Nebivolol HCl (Bystolic) 10 Mg Tablet, 10 MG PO DAILY, (Reported) Prednisone (Prednisone) 10 Mg Tablet, 10 MG PO TAPER Take 4 tabs daily x 3 days, then 3 tabs daily x 3 days, then 2 tabs daily x 3 days, then 1 tab daily x 3 days and stop Topiramate (Topiramate) 25 Mg Tablet, 25 MG PO DAILY, (Reported) Umeclidinium [place] (Incruse Ellipta) 62.5 Mcg Blst.w.dev, 2 PUFFS INH QHS, (Reported) Allergies Coded Allergies: No Known Drug Allergies (Verified Allergy, Unknown, 04/17/20) ROB DUKE DO November 24, 2020 21:07
== END 2020-11-24 15:42 | disposition home or self-care (01) ==
LOC: M OPP 10:46 → M MSPAV 16:50
PROVIDERS: ADMIT Internal Medicine; ATTEND Internal Medicine
DX: R09.02 Hypoxemia (principal); J44.1 Chronic obstructive pulmonary disease with (acute) exacerbation; I10 Essential (primary) hypertension; E78.49 Other hyperlipidemia; F17.218 Nicotine dependence, cigarettes, with other nicotine-induced disorders; Z79.82 Long term (current) use of aspirin; Z79.899 Other long term (current) drug therapy; K21.9 Gastro-esophageal reflux disease without esophagitis; Z79.52 Long term (current) use of systemic steroids; E80.1 Porphyria cutanea tarda
CPT/HCPCS: 36415; 45385; 71045; 71275; 80048; 80053; 83880; 85027; 85610; 85730; 88305; 93005; 94640; 96365; 96375; 96376; 97161; J0456; J2920; Q9967

== ENCOUNTER 2020-12-03 14:47 | Outpatient (CLI) | payer OTHER ==
[~2020-12-03] VITALS: Ht 162.6 cm; Wt 61.9 kg
[~2020-12-03 14:47] MED LIST changes: +AMLO1TAB24 PO; +AZIT500T5 PO; +IPRA6SP NARES; -NS 1,000 ML IV ONE; +PRED10TA2 PO; +TOPI25TA10 PO
[2020-12-03 15:19] LABS: HEMATOCRIT 27.6 % (36.0-47.0); HEMOGLOBIN 9.3 g/dl (12.0-15.5); MEAN CORPUSCULAR HEMOGLOBIN 32.1 pg (27.0-33.0); MEAN CORPUSCULAR HGB CONC 33.7 g/dl (32.0-36.5); MEAN CORPUSCULAR VOLUME 95.2 fl (80.0-96.0); PLATELET COUNT, AUTOMATED 132 10^3/uL (150-450); WHITE BLOOD COUNT 7.2 10^3/uL (4.0-10.0)
[2020-12-03 15:58] LABS: FERRITIN 31 NG/ML (8-252); IRON (FE) 111 UG/DL (50-170)
== END 2020-12-03 15:30 | disposition home or self-care (01) ==
LOC: M INFU 14:47
PROVIDERS: ATTEND Dermatology
DX: E80.1 Porphyria cutanea tarda (principal)

== ENCOUNTER → 2020-12-21 | Outpatient (CLI) | payer OTHER ==
[~2020-12-21] MED LIST changes: +COQ-100C5 PO; +MAGN64TASA
--- NOTE | 2020-12-21 09:01 | REP ---
INDICATION: OTHER PROTEINURIA COMPARISON: 04/05/2020 TECHNIQUE: Real time camarena scale ultrasound examination using curved array transducer followed by color Doppler evaluation of the renal vasculature. FINDINGS: Bilateral kidneys are normal in contour, size, echogenicity, and reniform shape. No hydronephrosis, nephrolithiasis, cystic or renal mass lesion. Right kidney measures 10.8 x 4.9 x 4.4 cm. Left kidney measures 9.8 x 4.7 x 4.1 cm. Bladder is unremarkable. Color Doppler evaluation. Peak aortic velocity: 87.4 centimeters/second RIGHT KIDNEY Renal arterial velocity: 153.0 centimeters/second Renal-aortic ratio: 1.8 Intrarenal resistive indices: 0.73-0.79 Intrarenal acceleration times: 0.03-0.04 LEFT KIDNEY Renal arterial velocity: 360 centimeters/second Renal-aortic ratio: 4.1 Intrarenal resistive indices: 0.67-0.72 Intrarenal acceleration times: 0.03-0.05 IMPRESSION: 1. Kidneys appear normal. 2. 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 <Electronically signed by Luis Vazquez > 12/21/20 0817
== END ==
LOC: M RAD 07:26
PROVIDERS: ATTEND Internal Medicine Nephrology
DX: R80.8 Other proteinuria (principal)

== ENCOUNTER 2021-01-04 08:22 | Outpatient (CLI) | payer OTHER ==
[~2021-01-04] VITALS: Ht 162.6 cm; Wt 61.9 kg
[2021-01-04 08:52] LABS: HEMATOCRIT 32.9 % (36.0-47.0); HEMOGLOBIN 10.8 g/dl (12.0-15.5); MEAN CORPUSCULAR HEMOGLOBIN 31.4 pg (27.0-33.0); MEAN CORPUSCULAR HGB CONC 32.8 g/dl (32.0-36.5); MEAN CORPUSCULAR VOLUME 95.6 fl (80.0-96.0); PLATELET COUNT, AUTOMATED 103 10^3/uL (150-450); RED BLOOD COUNT 3.44 10^6/uL (4.00-5.40); WHITE BLOOD COUNT 5.7 10^3/uL (4.0-10.0)
[2021-01-04 09:20] LABS: FERRITIN 157 NG/ML (8-252); IRON (FE) 35 UG/DL (50-170)
[2021-01-04 09:46] VITALS: BP 105/51
== END 2021-01-04 09:45 | disposition home or self-care (01) ==
LOC: M INFU 08:22
PROVIDERS: ATTEND Dermatology
DX: E80.1 Porphyria cutanea tarda (principal)

== ENCOUNTER 2021-01-14 16:36 | Outpatient (CLI) | payer OTHER ==
[~2021-01-14] VITALS: Ht 162.6 cm; Wt 61.9 kg
[~2021-01-14 16:36] MED LIST changes: +MAG SULF 1GM/100ML (MAG RUN) SINGLE DOSE IV ONE
[2021-01-14 17:40] VITALS: BP 166/92
== END 2021-01-14 17:44 | disposition home or self-care (01) ==
LOC: M INFU 16:36
PROVIDERS: ATTEND Internal Medicine Nephrology
DX: E83.42 Hypomagnesemia (principal)
CPT/HCPCS: 96365; J3475

== ENCOUNTER 2021-01-18 07:12 | Outpatient (CLI) | payer OTHER ==
[~2021-01-18] VITALS: Ht 157.5 cm; Wt 61.0 kg
[~2021-01-18 07:12] MED LIST changes: -MAG SULF 1GM/100ML (MAG RUN) SINGLE DOSE IV ONE
[2021-01-18 07:15] VITALS: BP 122/61
[2021-01-18 07:33] LABS: HEMATOCRIT 32.9 % (36.0-47.0); HEMOGLOBIN 10.8 g/dl (12.0-15.5); MEAN CORPUSCULAR HEMOGLOBIN 31.4 pg (27.0-33.0); MEAN CORPUSCULAR HGB CONC 32.8 g/dl (32.0-36.5); MEAN CORPUSCULAR VOLUME 95.6 fl (80.0-96.0); RED BLOOD COUNT 3.44 10^6/uL (4.00-5.40); WHITE BLOOD COUNT 4.8 10^3/uL (4.0-10.0)
[2021-01-18 08:02] LABS: FERRITIN 109 NG/ML (8-252); IRON (FE) 85 UG/DL (50-170)
[2021-01-18 08:08] LABS: PLATELET COUNT, AUTOMATED 85 10^3/uL (150-450)
== END 2021-01-18 08:30 | disposition home or self-care (01) ==
LOC: M INFU 07:12
PROVIDERS: ATTEND Physician Assistant
DX: E80.1 Porphyria cutanea tarda (principal)

== ENCOUNTER 2021-02-01 06:44 | Outpatient (CLI) | payer OTHER ==
[~2021-02-01] VITALS: Ht 157.5 cm; Wt 61.0 kg
[2021-02-01] MEDS: MAG SULF 1GM/100ML (MAG RUN) X 2 DOSES (2GM TOTAL) IV SCH ×4 (07:03→08:03)
[2021-02-01 07:19] VITALS: BP 136/65
[2021-02-01 07:34] LABS: CALCIUM LEVEL 8.4 MG/DL (8.8-10.2); CREATININE FOR GFR 1.52 MG/DL (0.55-1.30); GLOMERULAR FILTRATION RATE 37.1 (>45); POTASSIUM SERUM 3.1 MEQ/L (3.5-5.1)
[2021-02-01 09:11] VITALS: BP 140/66
== END 2021-02-01 09:15 | disposition home or self-care (01) ==
LOC: M INFU 06:44
PROVIDERS: ATTEND Internal Medicine Nephrology
DX: E83.42 Hypomagnesemia (principal)
CPT/HCPCS: 80048; 96365; 96366; J3475

== ENCOUNTER → 2021-02-01 | Outpatient (CLI) | payer OTHER | LOC: M INFU 06:45 | PROVIDERS: ATTEND Physician Assistant | DX: Z53.9 Procedure and treatment not carried out, unspecified reason (principal) ==

== ENCOUNTER 2021-02-15 07:03 | Emergency (ER) | payer OTHER ==
[~2021-02-15] VITALS: Ht 157.5 cm; Wt 58.3 kg
[2021-02-15] MEDS ORDERED: BYST20TA2 (07:19)
[2021-02-15 08:01] LABS: BASO % 0.6 % (0.0-1.0); EOS # 0.1 10^3/uL (0.0-0.5); EOS % 1.1 % (0.0-3.0); HEMATOCRIT 33.2 % (36.0-47.0); HEMOGLOBIN 10.8 g/dl (12.0-15.5); LYMPH # 0.4 10^3/uL (1.5-5.0); LYMPH % 7.6 % (24.0-44.0); MEAN CORPUSCULAR HGB CONC 32.5 g/dl (32.0-36.5); MEAN CORPUSCULAR VOLUME 98.2 fl (80.0-96.0); MONO # 0.3 10^3/uL (0.0-0.8); MONO % 6.3 % (2.0-8.0); NEUTROPHILS # 4.4 10^3/uL (1.5-8.5); NEUTROPHILS % 83.1 % (36.0-66.0); RED BLOOD COUNT 3.38 10^6/uL (4.00-5.40); WHITE BLOOD COUNT 5.3 10^3/uL (4.0-10.0)
[2021-02-15 08:04] LABS: PLATELET COUNT, AUTOMATED 79 10^3/uL (150-450)
--- NOTE | 2021-02-15 08:29 | REP ---
INDICATION: WEAKNESS. COMPARISON: NONE. TECHNIQUE: CT BRAIN PERFORMED IN THE AXIAL PLANE. CORONAL RECONSTRUCTION IMAGES ARE PERFORMED. FINDINGS: THE VENTRICLES ARE NORMAL IN SIZE AND POSITION. THERE IS NO MIDLINE SHIFT OR MASS EFFECT. OLIVIER-WHITE DIFFERENTIATION IS WELL MAINTAINED. THERE IS MINIMAL DIFFUSE CORTICAL ATROPHY. THERE IS NO ACUTE INTRACRANIAL HEMORRHAGE OR EXTRA-AXIAL FLUID COLLECTION. BRAINSTEM IS GROSSLY UNREMARKABLE. SOME CEREBELLAR ATROPHY IS NOTED WITHOUT MASS OR POSTERIOR FOSSA HEMORRHAGE. THE BASAL CISTERNS ARE INTACT. THERE ARE SOME ATHEROSCLEROTIC CALCIFICATIONS IN THE CAROTID SIPHONS. BONE WINDOW EXAMINATION IS UNREMARKABLE. VISUALIZED MASTOID AIR CELLS AND PARANASAL SINUSES ARE CLEAR. IMPRESSION: MILD CORTICAL ATROPHY AND CEREBELLAR ATROPHY. VENTRICULAR SIZE IS NORMAL. NO VASCULAR TERRITORY INFARCT, INTRACRANIAL HEMORRHAGE, MASS, EDEMA OR OTHER ACUTE FINDING. <Electronically signed by Darrin Schafer > 02/15/21 [id number]
[2021-02-15 08:43] LABS: ERYTHROCYTE SEDIMENTATION RATE 31 mm/hr (0-30)
[2021-02-15 08:55] LABS: ALBUMIN 3.3 GM/DL (3.2-5.2); ALT/SGPT 31 U/L (12-78); BILIRUBIN,DIRECT 0.4 MG/DL (0.0-0.2); BILIRUBIN,TOTAL 0.9 MG/DL (0.2-1.0); BLOOD UREA NITROGEN 10 MG/DL (7-18); C REACTIVE PROTEIN QUANTITATIV 2.34 MG/DL (0.00-0.30); CALCIUM LEVEL 8.8 MG/DL (8.8-10.2); CARBON DIOXIDE LEVEL 25 MEQ/L (21-32); CHLORIDE LEVEL 102 MEQ/L (98-107); CK-MB VALUE MASS 1.3 NG/ML (<3.6); CPK CREATINE PHOSPHOKINASE 33 U/L (26-192); CREATININE FOR GFR 1.12 MG/DL (0.55-1.30); FERRITIN 79 NG/ML (8-252); GLOMERULAR FILTRATION RATE 52.8 (>45); GLUCOSE, FASTING 78 MG/DL (70-100); MB/CK RELATIVE INDEX 3.94 (< OR =4); RHEUMATOID FACTOR QUANT < 10.0 IU/ML (<15.0); SODIUM LEVEL 135 MEQ/L (136-145); TOTAL IRON BINDING CAPACITY 335 UG/DL (250-450); TOTAL PROTEIN 7.7 GM/DL (6.4-8.2); TROPONIN I < 0.02 NG/ML (< 0.10)
[2021-02-15 09:10] LABS: IRON (FE) 146 UG/DL (50-170); PERCENT SATURATION 43.6 % (13.2-45.0)
[2021-02-15] MEDS ORDERED: MAG SULF 1GM/100ML (MAG RUN) 1 GM in IV 1 EA IV ONE ×2 (09:10→10:35)
[2021-02-15 13:12] VITALS: BP 157/72
--- NOTE | 2021-02-16 08:59 | ECGEPIP ---
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
[2021-02-16 12:09] LABS: ANTINUCLEAR ANTIBODIES DIRECT Negative (Negative)
== END 2021-02-15 13:15 | disposition home or self-care (01) ==
LOC: M ED 07:03
DX: E83.42 Hypomagnesemia (principal); R94.31 Abnormal electrocardiogram [ECG] [EKG]; I25.10 Atherosclerotic heart disease of native coronary artery without angina pectoris; I10 Essential (primary) hypertension; E78.5 Hyperlipidemia, unspecified; J44.9 Chronic obstructive pulmonary disease, unspecified; F17.200 Nicotine dependence, unspecified, uncomplicated; Z79.899 Other long term (current) drug therapy; Z95.1 Presence of aortocoronary bypass graft; Z98.890 Other specified postprocedural states; Z82.3 Family history of stroke; Z82.49 Family history of ischemic heart disease and other diseases of the circulatory system
CPT/HCPCS: 70450; 80048; 80076; 82550; 82553; 82728; 83550; 83735; 84443; 85025; 85049; 85055; 85652; 86038; 86140; 86431; 93005; 96360; 96361; 99285; J3475

== ENCOUNTER 2021-03-15 07:39 | Outpatient (CLI) | payer OTHER ==
[~2021-03-15 07:39] MED LIST changes: +BYST20TA2
[2021-03-15 07:45] VITALS: BP 158/78
[2021-03-15 08:06] LABS: HEMATOCRIT 30.1 % (36.0-47.0); HEMOGLOBIN 10.1 g/dl (12.0-15.5); MEAN CORPUSCULAR HGB CONC 33.6 g/dl (32.0-36.5); MEAN CORPUSCULAR VOLUME 101.3 fl (80.0-96.0); PLATELET COUNT, AUTOMATED 112 10^3/uL (150-450); RED BLOOD COUNT 2.97 10^6/uL (4.00-5.40); WHITE BLOOD COUNT 4.4 10^3/uL (4.0-10.0)
[2021-03-15 08:37] LABS: FERRITIN 52 NG/ML (8-252); IRON (FE) 141 UG/DL (50-170)
== END 2021-03-15 08:55 | disposition home or self-care (01) ==
LOC: M INFU 07:39
PROVIDERS: ATTEND Physician Assistant
DX: E80.1 Porphyria cutanea tarda (principal)

== ENCOUNTER → 2021-03-22 | Outpatient (REF) | payer OTHER ==
[2021-03-22 12:21] LABS: HEMATOCRIT 32.5 % (36.0-47.0); HEMOGLOBIN 10.7 g/dl (12.0-15.5); MEAN CORPUSCULAR HGB CONC 32.9 g/dl (32.0-36.5); MEAN CORPUSCULAR VOLUME 103.2 fl (80.0-96.0); RED BLOOD COUNT 3.15 10^6/uL (4.00-5.40)
[2021-03-22 12:24] LABS: PLATELET COUNT, AUTOMATED 74 10^3/uL (150-450)
[2021-03-22 12:54] LABS: ALBUMIN 3.5 GM/DL (3.2-5.2); ALT/SGPT 38 U/L (12-78); BILIRUBIN,TOTAL 0.9 MG/DL (0.2-1.0); BLOOD UREA NITROGEN 7 MG/DL (7-18); C REACTIVE PROTEIN QUANTITATIV 0.52 MG/DL (0.00-0.30); CALCIUM LEVEL 9.2 MG/DL (8.8-10.2); CARBON DIOXIDE LEVEL 29 MEQ/L (21-32); CHLORIDE LEVEL 96 MEQ/L (98-107); COMPLEMENT C3 73 MG/DL (90-180); COMPLEMENT C4 18 MG/DL (10-40); CREATININE FOR GFR 0.95 MG/DL (0.55-1.30); GLOMERULAR FILTRATION RATE > 60.0 (>45); GLUCOSE, FASTING 72 MG/DL (70-100); POTASSIUM SERUM 3.4 MEQ/L (3.5-5.1); SODIUM LEVEL 133 MEQ/L (136-145); TOTAL PROTEIN 7.9 GM/DL (6.4-8.2)
[2021-03-22 13:03] LABS: EOSINOPHILS 2 % (0-3); LYMPHOCYTES 15 % (16-44); MONOCYTES 5 % (0-5); NEUTROPHILS 78 % (28-66); PLATELET ESTIMATE DECREASED (NORMAL)
[2021-03-22 13:30] LABS: ERYTHROCYTE SEDIMENTATION RATE 33 mm/hr (0-30)
== END ==
LOC: M SFHCRHEU 08:44
PROVIDERS: ATTEND Internal Medicine Rheumatology
DX: E80.1 Porphyria cutanea tarda (principal)

== ENCOUNTER 2021-04-15 15:22 | Outpatient (CLI) | payer OTHER ==
[~2021-04-15] VITALS: Ht 157.5 cm; Wt 59.0 kg
[2021-04-15 15:25] VITALS: BP 180/78
[2021-04-15] MEDS: MAG SULF 1GM/100ML (MAG RUN) X 2 DOSES (2GM TOTAL) IV SCH ×4 (15:33→16:26)
[2021-04-15 17:45] VITALS: BP 154/72
== END 2021-04-15 17:45 | disposition home or self-care (01) ==
LOC: M INFU 15:22
PROVIDERS: ATTEND Internal Medicine
DX: E83.42 Hypomagnesemia (principal)
CPT/HCPCS: 96365; 96366; J3475

== ENCOUNTER 2021-09-19 21:12 | Emergency (ER) | payer OTHER ==
[~2021-09-19] VITALS: Ht 157.5 cm; Wt 59.1 kg
[~2021-09-19 21:12] MED LIST changes: +ECOT81TA5 PO; +FERR325T3 PO; +FOLI1TAB11 PO; +LOSA100T45 PO; -LOSA100T50 PO; +LOSA50TA28 PO; -LOSA50TA88 PO; +MAGN30TA PO; +POTA-151; +POTA10CA32 PO; -POTA20TA6; +PRED5CON PO
== END 2021-09-19 21:59 | disposition left against medical advice (07) ==
LOC: M ED 21:12
DX: Z53.21 Procedure and treatment not carried out due to patient leaving prior to being seen by health care provider (principal)

== ENCOUNTER 2021-11-23 21:31 | Emergency (ER) | payer OTHER ==
[2021-11-23] MEDS ORDERED: BOOSTRIX/ADACEL VACCINE (DIPHTH/PERTUSS/ACELL/TETANUS) 0.5ML SYR IM ONE (21:40)
[2021-11-23] MEDS ORDERED: DERMABOND TOPICAL SKIN ADHESIVE TOP ONE (21:40)
[2021-11-23 22:00] LABS: BASO # 0.1 10^3/uL (0.0-0.2); BASO % 1.1 % (0.0-1.0); EOS # 0.2 10^3/uL (0.0-0.5); HEMATOCRIT 29.7 % (36.0-47.0); HEMOGLOBIN 9.7 g/dl (12.0-15.5); LYMPH # 1.5 10^3/uL (1.5-5.0); LYMPH % 17.9 % (24.0-44.0); MEAN CORPUSCULAR HEMOGLOBIN 34.4 pg (27.0-33.0); MEAN CORPUSCULAR HGB CONC 32.7 g/dl (32.0-36.5); MEAN CORPUSCULAR VOLUME 105.3 fl (80.0-96.0); MONO # 0.9 10^3/uL (0.0-0.8); MONO % 10.5 % (2.0-8.0); NEUTROPHILS # 5.4 10^3/uL (1.5-8.5); NEUTROPHILS % 66.5 % (36.0-66.0); PLATELET COUNT, AUTOMATED 201 10^3/uL (150-450); RED BLOOD COUNT 2.82 10^6/uL (4.00-5.40); WHITE BLOOD COUNT 8.1 10^3/uL (4.0-10.0)
[2021-11-23 22:57] LABS: BLOOD UREA NITROGEN 7 MG/DL (7-18); CALCIUM LEVEL 7.8 MG/DL (8.8-10.2); CARBON DIOXIDE LEVEL 22 MEQ/L (21-32); CHLORIDE LEVEL 108 MEQ/L (98-107); CREATININE FOR GFR 0.95 MG/DL (0.55-1.30); ETHYL ALCOHOL (ETHANOL) 0.178 % (0.000-0.010); GLOMERULAR FILTRATION RATE > 60.0 (>45); GLUCOSE, FASTING 71 MG/DL (70-100); SODIUM LEVEL 141 MEQ/L (136-145)
[2021-11-23 22:59] VITALS: BP 141/61
[2021-11-23 23:54] VITALS: O2SAT 99
[2021-11-24] MEDS ORDERED: POTASSIUM CHLORIDE 10MEQ SR TABLET PO ONE
== END 2021-11-23 23:55 | disposition home or self-care (01) ==
LOC: EDBD 21:31 → M ED 21:31
DX: F10.929 Alcohol use, unspecified with intoxication, unspecified (principal); S61.412A Laceration without foreign body of left hand, initial encounter; S80.02XA Contusion of left knee, initial encounter; T68.XXXA Hypothermia, initial encounter; V48.0XXA Car driver injured in noncollision transport accident in nontraffic accident, initial encounter; I10 Essential (primary) hypertension; E78.5 Hyperlipidemia, unspecified; J44.9 Chronic obstructive pulmonary disease, unspecified; F17.200 Nicotine dependence, unspecified, uncomplicated; F10.10 Alcohol abuse, uncomplicated; Y92.9 Unspecified place or not applicable; Y93.9 Activity, unspecified; Y99.9 Unspecified external cause status; Z79.899 Other long term (current) drug therapy

== ENCOUNTER → 2022-07-10 | Outpatient (CLI) | payer OTHER ==
[~2022-07-10] MED LIST changes: +B-1100TA2 PO; +MAGNESIUM PO; +NICO-265 PO; +NICO1DIS11 TOP; +OMEG10002 PO; +OMEP-173 PO; -POTA10CA32 PO; +POTA10CA33 PO; +POTA99CA2 PO
== END ==
LOC: M LABSMTC 09:17
PROVIDERS: ATTEND Anesthesiology
DX: Z01.812 Encounter for preprocedural laboratory examination (principal); Z11.52 Encounter for screening for COVID-19

== ENCOUNTER → 2022-07-30 | Outpatient (CLI) | payer OTHER ==
[~2022-07-30] MED LIST changes: +IPRA3SP NARES
[2022-07-30 12:22] LABS: BASO # 0.1 10^3/uL (0.0-0.2); BASO % 1.2 % (0.0-1.0); EOS # 0.4 10^3/uL (0.0-0.5); EOS % 5.5 % (0.0-3.0); HEMATOCRIT 41.4 % (36.0-47.0); HEMOGLOBIN 13.4 g/dl (12.0-15.5); LYMPH # 1.7 10^3/uL (1.5-5.0); LYMPH % 25.9 % (24.0-44.0); MEAN CORPUSCULAR HEMOGLOBIN 32.4 pg (27.0-33.0); MEAN CORPUSCULAR HGB CONC 32.4 g/dl (32.0-36.5); MEAN CORPUSCULAR VOLUME 100.2 fl (80.0-96.0); MONO # 0.5 10^3/uL (0.0-0.8); MONO % 8.1 % (2.0-8.0); NEUTROPHILS # 3.9 10^3/uL (1.5-8.5); NEUTROPHILS % 58.7 % (36.0-66.0); PLATELET COUNT, AUTOMATED 174 10^3/uL (150-450); RED BLOOD COUNT 4.13 10^6/uL (4.00-5.40); WHITE BLOOD COUNT 6.7 10^3/uL (4.0-10.0)
[2022-07-30 12:32] LABS: INR 1.09; PROTHROMBIN TIME 14.3 SECONDS (12.5-14.5)
[2022-07-30 12:33] LABS: PARTIAL THROMBOPLASTIN TIME 31.5 SECONDS (24.8-34.2)
[2022-07-30 12:46] LABS: MAGNESIUM LEVEL 1.6 MG/DL (1.8-2.4)
[2022-07-30 12:47] LABS: ALBUMIN 3.5 G/DL (3.2-5.2); BILIRUBIN,DIRECT 0.2 MG/DL (<0.4); BILIRUBIN,TOTAL 0.5 MG/DL (0.3-1.2); CALCIUM LEVEL 10.2 MG/DL (8.3-10.6); CREATININE FOR GFR 1.3 MG/DL (0.55-1.30); GLOMERULAR FILTRATION RATE 44.2 (>45); PHOSPHORUS LEVEL 4.9 MG/DL (2.4-5.1); POTASSIUM SERUM 4.6 MMOL/L (3.5-5.1); TOTAL PROTEIN 7.5 G/DL (5.7-8.2)
[2022-08-05 08:09] LABS: IGASUB2 543.7 mg/dL (73.2-301.2); IGASUB3 119.1 mg/dL (13.4-97.9); IgA SERUM (part of Subclasses) 665 mg/dL (87-352); TISSUE TRANSGLUTAMINASE IgA <2 U/mL (0-3)
== END ==
LOC: M LAB 10:43
PROVIDERS: ATTEND Internal Medicine Gastroenterology
DX: R19.7 Diarrhea, unspecified (principal); E87.1 Hypo-osmolality and hyponatremia

== ENCOUNTER 2022-08-05 07:06 | Day surgery (SDC) | payer OTHER ==
[~2022-08-05] VITALS: Ht 154.9 cm; Wt 59.9 kg
[~2022-08-05 07:06] MED LIST changes: +BSS IRR 500ML/OMIDRIA 4ML IRR BAG (OR ONLY) As Ordered ONE; +CEFUROXIME 1MG/0.1ML INTRACAMERAL INJ As Ordered ONE; +CYCLOPENTOLATE 1% OPHTH SOLN 2ML BTL OD SCH; +LIDOCAINE 1% SDV 5ML VIAL As Ordered ONE; +OFLOXACIN 0.3 % (OCUFLOX) OPTH SOL 5ML OD SCH; +PROPARACAINE 0.5% OPHTH SOL 15ML OD ONE; +TROPICAMIDE 1% OPHTH SOLN 15ML OD SCH
[2022-08-05] MEDS ORDERED: MIDAZOLAM INJ 2MG/2ML VIAL As Ordered ONE (07:13)
[2022-08-05] MEDS: PHENYLEPHRINE 2.5% OPHTH SOL 2ML OD SCH ×2 (08:11→09:57)
[2022-08-05 10:17] VITALS: BP 167/80
== END 2022-08-05 14:43 | disposition home or self-care (01) ==
LOC: M SDC 07:06
PROVIDERS: ATTEND Ophthalmology
DX: H25.11 Age-related nuclear cataract, right eye (principal); I10 Essential (primary) hypertension; E78.5 Hyperlipidemia, unspecified; J44.9 Chronic obstructive pulmonary disease, unspecified; Z79.899 Other long term (current) drug therapy
CPT/HCPCS: 66984; 87428; 92015; J1097; V2632

== ENCOUNTER 2024-03-03 09:21 | Inpatient (IN) | payer OTHER, MEDICAID ==
[~2024-03-03] VITALS: Ht 157.5 cm; Wt 50.5 kg
[2024-03-03] MEDS: PANTOPRAZOLE 40MG VIAL IV SCH (09:00)
[~2024-03-03 09:21] MED LIST changes: -BSS IRR 500ML/OMIDRIA 4ML IRR BAG (OR ONLY) As Ordered ONE; -BYST10TA2 PO; +BYST1TAB; +BYST1TAB3 PO; -BYST20TA2; -CEFUROXIME 1MG/0.1ML INTRACAMERAL INJ As Ordered ONE; -CYCLOPENTOLATE 1% OPHTH SOLN 2ML BTL OD SCH; -HYDR200T3; +HYDR200T46; -LIDOCAINE 1% SDV 5ML VIAL As Ordered ONE; -LOSA100T45 PO; +LOSA100T46 PO; -NADO40TA PO; +NADO40TA6 PO; -OFLOXACIN 0.3 % (OCUFLOX) OPTH SOL 5ML OD SCH; -POTA10CA33 PO; +POTA10CA70 PO; -PROPARACAINE 0.5% OPHTH SOL 15ML OD ONE; +TREL1AER INH; -TROPICAMIDE 1% OPHTH SOLN 15ML OD SCH
[2024-03-03 10:19] LABS: BASO % 0.2 % (0.0-1.0); HEMATOCRIT 33.9 % (36.0-47.0); HEMOGLOBIN 11.4 g/dl (12.0-15.5); LYMPH % 4.6 % (24.0-44.0); MEAN CORPUSCULAR HEMOGLOBIN 33.1 pg (27.0-33.0); MEAN CORPUSCULAR HGB CONC 33.6 g/dl (32.0-36.5); MEAN CORPUSCULAR VOLUME 98.5 fl (80.0-96.0); MONO # 0.6 10^3/uL (0.0-0.8); MONO % 2.5 % (2.0-8.0); NEUTROPHILS # 20.6 10^3/uL (1.5-8.5); NEUTROPHILS % 92.3 % (36.0-66.0); PLATELET COUNT, AUTOMATED 148 10^3/uL (150-450); RED BLOOD COUNT 3.44 10^6/uL (4.00-5.40); WHITE BLOOD COUNT 22.3 10^3/uL (4.0-10.0)
[2024-03-03] MEDS: NS 1,000 ML IV ONE (11:18)
[2024-03-03] MEDS ORDERED: DUPI300P SQ (13:26)
[2024-03-03] MEDS ORDERED: NEBI20TA2 PO (13:26)
[2024-03-03] MEDS ORDERED: HOME MED LIST COMPLETE! XX SCH (13:30)
[2024-03-03] MEDS: TIOTROPIUM INHALER/CAPSULE (SPIRIVA) INH SCH (13:48)
[2024-03-03] MEDS: SYMBICORT 160/4.5MCG INHALER 6GM INH SCH (13:48)
[2024-03-03] MEDS ORDERED: ONDANSETRON 4MG 2ML VIAL IV PRN (13:55)
[2024-03-03 15:15] VITALS: BP 171/85; TEMP 97.9; O2SAT 96
[2024-03-03] MEDS: NS 1,000 ML IV SCH ×2 (15:58→21:19)
[2024-03-03 16:43] LABS: ALBUMIN 3.1 G/DL (3.2-5.2); CALCIUM LEVEL 8.9 MG/DL (8.3-10.6); CREATININE FOR GFR 2.25 MG/DL (0.55-1.30); GLOMERULAR FILTRATION RATE 23.4 (>45); POTASSIUM SERUM 4.1 MMOL/L (3.5-5.1); TOTAL PROTEIN 7.3 G/DL (5.7-8.2)
[2024-03-03] MEDS ORDERED: LORazepam 2 MG TAB PO PRN (18:30)
[2024-03-03 19:40] VITALS: BP 150/68; TEMP 97; O2SAT 93
[2024-03-03 19:40] LABS: PROCALCITONIN 0.58 ng/ml
[2024-03-03] MEDS: cefTRIAXone SOD 1 GM in D5W MINI-BAG PLUS 50 ML IV SCH (19:56)
[2024-03-03] MEDS: THIAMINE 100 MG TAB PO SCH (19:57)
[2024-03-03] MEDS: HEPARIN SOD (PORCINE) 5000UNITS/ML 1ML VIAL/SYRINGE SQ SCH (19:57)
[2024-03-03 20:00] VITALS: BP 150/68
[2024-03-03] MEDS: NEBIVOLOL 5 MG TAB (BYSTOLIC) PO SCH (20:00)
[2024-03-03] MEDS: amLODIPine 5 MG TAB PO ONE (20:05)
[2024-03-03] MEDS: NS 500 ML IV ONE (21:20)
[2024-03-04 04:47] VITALS: BP 128/54; TEMP 98.8; O2SAT 92
[2024-03-04 06:38] LABS: BASO % 0.1 % (0.0-1.0); EOS # 0.1 10^3/uL (0.0-0.5); EOS % 0.3 % (0.0-3.0); LYMPH # 1.1 10^3/uL (1.5-5.0); LYMPH % 7.2 % (24.0-44.0); MEAN CORPUSCULAR HEMOGLOBIN 32.8 pg (27.0-33.0); MEAN CORPUSCULAR HGB CONC 33.2 g/dl (32.0-36.5); MEAN CORPUSCULAR VOLUME 98.9 fl (80.0-96.0); MONO # 0.6 10^3/uL (0.0-0.8); MONO % 4.1 % (2.0-8.0); NEUTROPHILS # 12.8 10^3/uL (1.5-8.5); NEUTROPHILS % 87.8 % (36.0-66.0); RED BLOOD COUNT 2.74 10^6/uL (4.00-5.40); WHITE BLOOD COUNT 14.6 10^3/uL (4.0-10.0)
[2024-03-04 06:46] LABS: HEMATOCRIT 27.1 % (36.0-47.0); PLATELET COUNT, AUTOMATED 93 10^3/uL (150-450)
[2024-03-04 07:11] LABS: CALCIUM LEVEL 7.7 MG/DL (8.3-10.6); CREATININE FOR GFR 1.84 MG/DL (0.55-1.30); GLOMERULAR FILTRATION RATE 29.5 (>45); POTASSIUM SERUM 3.4 MMOL/L (3.5-5.1)
[2024-03-04] MEDS: FOLIC ACID 1MG TAB PO SCH (07:57)
[2024-03-04] MEDS: MULTIVITAMINS/MINERALS THERAP 1 TAB PO SCH (07:57)
[2024-03-04] MEDS: oxyCODONE 5MG TAB PO PRN (08:13)
[2024-03-04] MEDS: POTASSIUM CHLORIDE 10MEQ SR TABLET PO ONE (08:33)
[2024-03-04 12:00] VITALS: BP 145/64; TEMP 98.2; O2SAT 91
[2024-03-04 14:25] VITALS: BP 144/51
[2024-03-04 19:42] VITALS: BP 95/89; TEMP 97.3; O2SAT 89
[2024-03-04 20:00] VITALS: BP 110/58
[2024-03-05 04:17] VITALS: BP 137/62; TEMP 98.1; O2SAT 89
[2024-03-05] MEDS: ALBUTEROL SULFATE 2.5MG/0.5ML INH NEB SOLN NEB PRN (05:08)
[2024-03-05 07:01] LABS: BASO % 0.2 % (0.0-1.0); EOS # 0.1 10^3/uL (0.0-0.5); EOS % 0.6 % (0.0-3.0); HEMATOCRIT 26.8 % (36.0-47.0); HEMOGLOBIN 8.7 g/dl (12.0-15.5); LYMPH # 1.2 10^3/uL (1.5-5.0); LYMPH % 9.4 % (24.0-44.0); MEAN CORPUSCULAR HEMOGLOBIN 32.7 pg (27.0-33.0); MEAN CORPUSCULAR HGB CONC 32.5 g/dl (32.0-36.5); MEAN CORPUSCULAR VOLUME 100.8 fl (80.0-96.0); MONO # 0.9 10^3/uL (0.0-0.8); MONO % 7.3 % (2.0-8.0); NEUTROPHILS # 9.9 10^3/uL (1.5-8.5); NEUTROPHILS % 79.8 % (36.0-66.0); RED BLOOD COUNT 2.66 10^6/uL (4.00-5.40); WHITE BLOOD COUNT 12.5 10^3/uL (4.0-10.0)
[2024-03-05 07:13] LABS: PLATELET COUNT, AUTOMATED 72 10^3/uL (150-450)
[2024-03-05 07:18] LABS: CALCIUM LEVEL 7.7 MG/DL (8.3-10.6); CREATININE FOR GFR 1.61 MG/DL (0.55-1.30); GLOMERULAR FILTRATION RATE 34.4 (>45); POTASSIUM SERUM 3.4 MMOL/L (3.5-5.1)
[2024-03-05] MEDS: POTASSIUM CHLORIDE 10MEQ SR TABLET PO SCH (09:23)
[2024-03-05 10:14] VITALS: BP 132/63
[2024-03-05 12:54] VITALS: BP 142/62; TEMP 98.2; O2SAT 91
[2024-03-05] MEDS ORDERED: IPRATROPIUM 0.5MG/ALBUTEROL 2.5MG INH SOL UD 3ML (DUONEB) NEB PRN (16:20)
[2024-03-05] MEDS: ALBUTEROL SULFATE 2.5MG/0.5ML INH NEB SOLN NEB SCH (17:09)
[2024-03-05 17:35] LABS: ABG BASE EXCESS -5.4 (-2.0-2.0); ABG HCO3 18.8 MMOL/L (22.0-26.0); ABG PARTIAL PRESSURE CO2 31.7 mmHg (35.0-45.0); ABG PARTIAL PRESSURE O2 69.8 mmHg (75.0-100.0); ABG TOTAL CO2 19.8 MMOL/L (23.0-31.0); ABG pH (ARTERIAL) 7.391 UNITS (7.350-7.450)
[2024-03-05] MEDS: FUROSEMIDE 40MG/4ML VIAL IV ONE (18:15)
[2024-03-05] MEDS: methylPREDNISolone 40MG 1ML VIAL IV SCH (18:15)
[2024-03-05 21:37] VITALS: BP 154/68; TEMP 98.2; O2SAT 94
[2024-03-05 21:58] VITALS: BP 154/68
[2024-03-06] VITALS (7 sets, daily range): BP systolic 158–182; BP diastolic 66–83; TEMP 98.1–98.6; O2SAT 90–93
[2024-03-06 06:47] LABS: HEMATOCRIT 26.8 % (36.0-47.0); HEMOGLOBIN 9.1 g/dl (12.0-15.5); MEAN CORPUSCULAR HEMOGLOBIN 33.3 pg (27.0-33.0); MEAN CORPUSCULAR VOLUME 98.2 fl (80.0-96.0); RED BLOOD COUNT 2.73 10^6/uL (4.00-5.40); WHITE BLOOD COUNT 9.3 10^3/uL (4.0-10.0)
[2024-03-06 06:59] LABS: PLATELET COUNT, AUTOMATED 72 10^3/uL (150-450)
[2024-03-06 07:25] LABS: CALCIUM LEVEL 8.1 MG/DL (8.3-10.6); CREATININE FOR GFR 1.51 MG/DL (0.55-1.30); GLOMERULAR FILTRATION RATE 37.1 (>45); POTASSIUM SERUM 3.8 MMOL/L (3.5-5.1)
[2024-03-06 08:27] LABS: ANISOCYTOSIS 1+; ATYPICAL LYMPH 3 % (0-5); LYMPHOCYTES 4 % (16-44); METAMYELOCYTES 2 % (0-0); MONOCYTES 1 % (0-5); NEUTROPHILS 88 % (28-66)
[2024-03-06 08:28] LABS: PLATELET ESTIMATE DECREASED (NORMAL)
[2024-03-07 05:30] VITALS: BP 178/96
[2024-03-07 05:55] VITALS: BP 178/96
[2024-03-07 06:44] LABS: HEMATOCRIT 27.3 % (36.0-47.0); HEMOGLOBIN 9.5 g/dl (12.0-15.5); MEAN CORPUSCULAR HEMOGLOBIN 33.8 pg (27.0-33.0); MEAN CORPUSCULAR HGB CONC 34.8 g/dl (32.0-36.5); MEAN CORPUSCULAR VOLUME 97.2 fl (80.0-96.0); PLATELET COUNT, AUTOMATED 126 10^3/uL (150-450); RED BLOOD COUNT 2.81 10^6/uL (4.00-5.40); WHITE BLOOD COUNT 11.9 10^3/uL (4.0-10.0)
[2024-03-07 07:11] LABS: CALCIUM LEVEL 8.2 MG/DL (8.3-10.6); CREATININE FOR GFR 1.29 MG/DL (0.55-1.30); GLOMERULAR FILTRATION RATE 44.4 (>45); POTASSIUM SERUM 3.8 MMOL/L (3.5-5.1)
[2024-03-07 07:47] LABS: LYMPHOCYTES 10 % (16-44); MONOCYTES 6 % (0-5); NEUTROPHILS 82 % (28-66)
[2024-03-07 07:48] LABS: ANISOCYTOSIS 1+; PLATELET ESTIMATE NORMAL (NORMAL); POLYCHROMASIA 1+
[2024-03-07 08:26] VITALS: BP 169/76
[2024-03-07 12:00] VITALS: BP 177/79; TEMP 98.2; O2SAT 92
[2024-03-07 20:00] VITALS: BP 133/93; TEMP 98.2; O2SAT 92
[2024-03-08 04:48] VITALS: BP 182/96; TEMP 98.2; O2SAT 95
[2024-03-08 05:05] VITALS: BP 176/82
[2024-03-08 06:27] LABS: BASO # 0.1 10^3/uL (0.0-0.2); BASO % 0.4 % (0.0-1.0); HEMATOCRIT 29.4 % (36.0-47.0); HEMOGLOBIN 9.8 g/dl (12.0-15.5); LYMPH % 5.6 % (24.0-44.0); MEAN CORPUSCULAR HEMOGLOBIN 32.7 pg (27.0-33.0); MEAN CORPUSCULAR HGB CONC 33.3 g/dl (32.0-36.5); MONO # 1.8 10^3/uL (0.0-0.8); MONO % 10.3 % (2.0-8.0); NEUTROPHILS # 12.6 10^3/uL (1.5-8.5); NEUTROPHILS % 73.8 % (36.0-66.0); PLATELET COUNT, AUTOMATED 192 10^3/uL (150-450)
[2024-03-08 07:21] LABS: CALCIUM LEVEL 8.3 MG/DL (8.3-10.6); CREATININE FOR GFR 1.26 MG/DL (0.55-1.30); GLOMERULAR FILTRATION RATE 45.7 (>45); POTASSIUM SERUM 4.1 MMOL/L (3.5-5.1)
[2024-03-08] MEDS ORDERED: traMADol 50 MG TAB PO PRN (10:40)
[2024-03-08] MEDS: ACETAMINOPHEN TAB 650MG DOSE (2X325MG) PO PRN (10:58)
[2024-03-08] MEDS: PERCOCET 5MG/325MG TAB PO PRN (11:00)
[2024-03-08] MEDS: guaiFENesin ER TABLET 600 MG TAB PO SCH (11:00)
[2024-03-08 12:00] VITALS: BP 139/77; TEMP 98.2; O2SAT 96
[2024-03-08] MEDS: ALBUTEROL SULFATE 2.5MG/0.5ML INH NEB SOLN NEB SCH (12:00)
[2024-03-08 21:52] VITALS: BP 165/70; TEMP 98.1; O2SAT 96
[2024-03-09 06:22] VITALS: BP 122/73; TEMP 98; O2SAT 97
[2024-03-09 07:16] LABS: HEMATOCRIT 30.4 % (36.0-47.0); HEMOGLOBIN 9.9 g/dl (12.0-15.5); MEAN CORPUSCULAR HEMOGLOBIN 32.6 pg (27.0-33.0); MEAN CORPUSCULAR HGB CONC 32.6 g/dl (32.0-36.5); PLATELET COUNT, AUTOMATED 243 10^3/uL (150-450); RED BLOOD COUNT 3.04 10^6/uL (4.00-5.40)
[2024-03-09 07:38] LABS: CALCIUM LEVEL 8.1 MG/DL (8.3-10.6); CREATININE FOR GFR 1.42 MG/DL (0.55-1.30); GLOMERULAR FILTRATION RATE 39.8 (>45); POTASSIUM SERUM 3.9 MMOL/L (3.5-5.1)
[2024-03-09 08:19] LABS: LYMPHOCYTES 11 % (16-44); METAMYELOCYTES 4 % (0-0); MONOCYTES 5 % (0-5); MYELOCYTES 1 % (0-0); NEUTROPHILS 76 % (28-66)
[2024-03-09 08:20] LABS: PLATELET ESTIMATE NORMAL (NORMAL)
[2024-03-09] MEDS: predniSONE 20 MG TAB PO SCH (08:21)
[2024-03-09 12:00] VITALS: BP 131/60; TEMP 97; O2SAT 98
[2024-03-09] MEDS: NS 1,000 ML IV SCH (19:26)
[2024-03-09 21:48] VITALS: BP 170/76; TEMP 97.6; O2SAT 97
[2024-03-10 04:00] VITALS: BP 173/77; TEMP 97.5; O2SAT 97
[2024-03-10 06:13] LABS: BASO # 0.1 10^3/uL (0.0-0.2); BASO % 0.3 % (0.0-1.0); EOS % 0.1 % (0.0-3.0); HEMATOCRIT 27.3 % (36.0-47.0); HEMOGLOBIN 8.9 g/dl (12.0-15.5); LYMPH # 1.8 10^3/uL (1.5-5.0); LYMPH % 6.1 % (24.0-44.0); MEAN CORPUSCULAR HEMOGLOBIN 32.7 pg (27.0-33.0); MEAN CORPUSCULAR HGB CONC 32.6 g/dl (32.0-36.5); MEAN CORPUSCULAR VOLUME 100.4 fl (80.0-96.0); MONO # 1.6 10^3/uL (0.0-0.8); MONO % 5.6 % (2.0-8.0); NEUTROPHILS # 23.7 10^3/uL (1.5-8.5); NEUTROPHILS % 82.3 % (36.0-66.0); PLATELET COUNT, AUTOMATED 243 10^3/uL (150-450); RED BLOOD COUNT 2.72 10^6/uL (4.00-5.40); WHITE BLOOD COUNT 28.8 10^3/uL (4.0-10.0)
[2024-03-10 06:30] LABS: CALCIUM LEVEL 7.8 MG/DL (8.3-10.6); CREATININE FOR GFR 1.36 MG/DL (0.55-1.30); GLOMERULAR FILTRATION RATE 41.8 (>45); POTASSIUM SERUM 3.8 MMOL/L (3.5-5.1)
[2024-03-10 12:00] VITALS: BP 166/75; TEMP 97.6; O2SAT 90
[2024-03-10] MEDS: SANTYL OINT 30GM TOP SCH (12:58)
[2024-03-10] MEDS: PERCOCET 5MG/325MG TAB PO PRN (13:41)
[2024-03-10 16:10] LABS: CLOSTRIDIUM DIFFICILE PCR POSITIVE (NEGATIVE)
[2024-03-10 19:51] VITALS: BP 158/74; TEMP 97.1; O2SAT 92
[2024-03-10] MEDS: FIDAXOMICIN 200 MG TAB (DIFICID) PO SCH (21:10)
[2024-03-11 03:43] VITALS: BP 167/75; TEMP 97.8; O2SAT 94
[2024-03-11 06:26] LABS: HEMATOCRIT 24.3 % (36.0-47.0); HEMOGLOBIN 7.8 g/dl (12.0-15.5); MEAN CORPUSCULAR HEMOGLOBIN 32.9 pg (27.0-33.0); MEAN CORPUSCULAR HGB CONC 32.1 g/dl (32.0-36.5); MEAN CORPUSCULAR VOLUME 102.5 fl (80.0-96.0); PLATELET COUNT, AUTOMATED 217 10^3/uL (150-450); RED BLOOD COUNT 2.37 10^6/uL (4.00-5.40); WHITE BLOOD COUNT 24.2 10^3/uL (4.0-10.0)
[2024-03-11 06:55] LABS: ALBUMIN 1.6 G/DL (3.2-5.2); ALKALINE PHOSPHATASE 52 U/L (46-116); ALT/SGPT 17 U/L (7.0-40); AST/SGOT 19 U/L (<34); BILIRUBIN,TOTAL 0.3 MG/DL (0.3-1.2); BLOOD UREA NITROGEN 31 MG/DL (9-23); CARBON DIOXIDE LEVEL 16 MMOL/L (20-31); CHLORIDE LEVEL 116 MMOL/L (98-107); CREATININE FOR GFR 0.94 MG/DL (0.55-1.30); GLOMERULAR FILTRATION RATE > 60.0 (>45); GLUCOSE, FASTING 69 MG/DL (74-106); POTASSIUM SERUM 3.3 MMOL/L (3.5-5.1); SODIUM LEVEL 139 MMOL/L (136-145); TOTAL PROTEIN 4.1 G/DL (5.7-8.2)
[2024-03-11] MEDS: LACTOBACILLUS ACIDOPHILUS CAP (BACID) PO SCH (09:28)
[2024-03-11 12:00] VITALS: BP 146/61; TEMP 98.2; O2SAT 98
[2024-03-11 19:58] VITALS: BP 175/75; TEMP 98.1; O2SAT 97
[2024-03-12 05:04] VITALS: BP 177/77; TEMP 98.1; O2SAT 96
[2024-03-12 06:49] LABS: HEMATOCRIT 24.9 % (36.0-47.0); HEMOGLOBIN 8.1 g/dl (12.0-15.5); MEAN CORPUSCULAR HEMOGLOBIN 32.3 pg (27.0-33.0); MEAN CORPUSCULAR HGB CONC 32.5 g/dl (32.0-36.5); MEAN CORPUSCULAR VOLUME 99.2 fl (80.0-96.0); PLATELET COUNT, AUTOMATED 232 10^3/uL (150-450); RED BLOOD COUNT 2.51 10^6/uL (4.00-5.40); WHITE BLOOD COUNT 23.1 10^3/uL (4.0-10.0)
[2024-03-12 07:31] LABS: BILIRUBIN,TOTAL 0.6 MG/DL (0.3-1.2); CALCIUM LEVEL 7.3 MG/DL (8.3-10.6); CREATININE FOR GFR 1.2 MG/DL (0.55-1.30); GLOMERULAR FILTRATION RATE 48.3 (>45); POTASSIUM SERUM 3.9 MMOL/L (3.5-5.1)
[2024-03-12 12:00] VITALS: BP 147/60; TEMP 98.8; O2SAT 95
[2024-03-12 20:04] VITALS: BP 146/60; TEMP 98.2; O2SAT 93
[2024-03-13 03:46] VITALS: BP 155/69; TEMP 97; O2SAT 89
[2024-03-13 07:16] LABS: HEMATOCRIT 26.5 % (36.0-47.0); HEMOGLOBIN 8.6 g/dl (12.0-15.5); MEAN CORPUSCULAR HEMOGLOBIN 32.8 pg (27.0-33.0); MEAN CORPUSCULAR HGB CONC 32.5 g/dl (32.0-36.5); MEAN CORPUSCULAR VOLUME 101.1 fl (80.0-96.0); PLATELET COUNT, AUTOMATED 249 10^3/uL (150-450); RED BLOOD COUNT 2.62 10^6/uL (4.00-5.40); WHITE BLOOD COUNT 19.8 10^3/uL (4.0-10.0)
[2024-03-13 07:40] LABS: ALBUMIN 1.9 G/DL (3.2-5.2); BILIRUBIN,TOTAL 0.7 MG/DL (0.3-1.2); CALCIUM LEVEL 7.7 MG/DL (8.3-10.6); CREATININE FOR GFR 1.13 MG/DL (0.55-1.30); GLOMERULAR FILTRATION RATE 51.8 (>45); TOTAL PROTEIN 5.2 G/DL (5.7-8.2)
[2024-03-13 08:06] VITALS: O2SAT 92
[2024-03-13 12:27] VITALS: BP 151/70; TEMP 97; O2SAT 83
[2024-03-13 15:49] VITALS: O2SAT 95
[2024-03-13 15:57] LABS: PROCALCITONIN 0.47 ng/ml
[2024-03-13] MEDS: FUROSEMIDE 40MG/4ML VIAL IV SCH (19:01)
[2024-03-13] MEDS: ALBUTEROL SULFATE 2.5MG/0.5ML INH NEB SOLN NEB SCH (19:23)
[2024-03-13] MEDS: CALCIUM CARBONATE 500 MG CHEW U/D PO ONE (19:56)
[2024-03-13] MEDS: SIMETHICONE 80MG CHEW TAB PO ONE (19:56)
[2024-03-13] MEDS: MAALOX 30 ML SUSP *UDC PO ONE (19:57)
[2024-03-13] MEDS: LIDOCAINE 5% (LIDODERM) PATCH TD SCH ×2 (19:57→23:55)
[2024-03-13 20:00] VITALS: BP 161/73; TEMP 97; O2SAT 90
[2024-03-14 03:34] VITALS: BP 162/74; TEMP 98.1; O2SAT 91
[2024-03-14 06:11] LABS: HEMATOCRIT 26.5 % (36.0-47.0); HEMOGLOBIN 8.7 g/dl (12.0-15.5); MEAN CORPUSCULAR HEMOGLOBIN 32.6 pg (27.0-33.0); MEAN CORPUSCULAR HGB CONC 32.8 g/dl (32.0-36.5); MEAN CORPUSCULAR VOLUME 99.3 fl (80.0-96.0); PLATELET COUNT, AUTOMATED 247 10^3/uL (150-450); RED BLOOD COUNT 2.67 10^6/uL (4.00-5.40); WHITE BLOOD COUNT 16.9 10^3/uL (4.0-10.0)
[2024-03-14 06:35] LABS: ALBUMIN 2.1 G/DL (3.2-5.2); ALKALINE PHOSPHATASE 102 U/L (46-116); ALT/SGPT 26 U/L (7.0-40); AST/SGOT 24 U/L (<34); BILIRUBIN,TOTAL 0.8 MG/DL (0.3-1.2); BLOOD UREA NITROGEN 21 MG/DL (9-23); CALCIUM LEVEL 7.9 MG/DL (8.3-10.6); CARBON DIOXIDE LEVEL 24 MMOL/L (20-31); CHLORIDE LEVEL 107 MMOL/L (98-107); CREATININE FOR GFR 1.16 MG/DL (0.55-1.30); GLOMERULAR FILTRATION RATE 50.2 (>45); GLUCOSE, FASTING 95 MG/DL (74-106); POTASSIUM SERUM 3.6 MMOL/L (3.5-5.1); SODIUM LEVEL 136 MMOL/L (136-145); TOTAL PROTEIN 5.4 G/DL (5.7-8.2)
[2024-03-14 07:43] LABS: CK-MB VALUE MASS < 1.0 NG/ML (<3.6)
[2024-03-14 07:45] LABS: CPK CREATINE PHOSPHOKINASE < 15 U/L (34-145)
[2024-03-14] MEDS: predniSONE 20 MG TAB PO SCH (08:55)
[2024-03-14] MEDS: PANTOPRAZOLE 40MG VIAL IV SCH (08:55)
[2024-03-14 12:00] VITALS: BP 139/66; TEMP 98.1; O2SAT 92
[2024-03-14 20:40] VITALS: BP 137/65; TEMP 97.6; O2SAT 90
[2024-03-15 04:17] VITALS: BP 154/69; TEMP 97.5; O2SAT 90
[2024-03-15 06:24] LABS: HEMOGLOBIN 8.5 g/dl (12.0-15.5); MEAN CORPUSCULAR HEMOGLOBIN 32.8 pg (27.0-33.0); MEAN CORPUSCULAR HGB CONC 32.7 g/dl (32.0-36.5); MEAN CORPUSCULAR VOLUME 100.4 fl (80.0-96.0); PLATELET COUNT, AUTOMATED 251 10^3/uL (150-450); RED BLOOD COUNT 2.59 10^6/uL (4.00-5.40); WHITE BLOOD COUNT 12.3 10^3/uL (4.0-10.0)
[2024-03-15 06:56] LABS: ALBUMIN 2.2 G/DL (3.2-5.2); BILIRUBIN,TOTAL 0.4 MG/DL (0.3-1.2); CALCIUM LEVEL 7.8 MG/DL (8.3-10.6); CREATININE FOR GFR 1.32 MG/DL (0.55-1.30); GLOMERULAR FILTRATION RATE 43.3 (>45); POTASSIUM SERUM 4.1 MMOL/L (3.5-5.1); TOTAL PROTEIN 5.6 G/DL (5.7-8.2)
[2024-03-15] MEDS: PANTOPRAZOLE 40MG TAB (PROTONIX) PO SCH (09:01)
[2024-03-15 12:00] VITALS: BP 171/72; TEMP 98.1; O2SAT 98
[2024-03-15] MEDS: amLODIPine 5 MG TAB PO ONE (16:47)
[2024-03-15 18:17] LABS: PERCENT SATURATION 27.6 % (13.2-45.0)
[2024-03-15 18:21] LABS: FERRITIN 524.4 NG/ML (7.3-270.7); FOLATE 13.61 NG/ML (>5.4)
[2024-03-15 20:35] VITALS: BP 167/72; TEMP 92; O2SAT 94
[2024-03-16 03:56] VITALS: BP 170/76; TEMP 97; O2SAT 90
[2024-03-16 06:14] LABS: HEMATOCRIT 25.6 % (36.0-47.0); HEMOGLOBIN 8.3 g/dl (12.0-15.5); MEAN CORPUSCULAR HEMOGLOBIN 32.5 pg (27.0-33.0); MEAN CORPUSCULAR HGB CONC 32.4 g/dl (32.0-36.5); MEAN CORPUSCULAR VOLUME 100.4 fl (80.0-96.0); PLATELET COUNT, AUTOMATED 236 10^3/uL (150-450); RED BLOOD COUNT 2.55 10^6/uL (4.00-5.40); WHITE BLOOD COUNT 11.1 10^3/uL (4.0-10.0)
[2024-03-16 07:10] LABS: CALCIUM LEVEL 7.9 MG/DL (8.3-10.6); CREATININE FOR GFR 1.41 MG/DL (0.55-1.30); GLOMERULAR FILTRATION RATE 40.1 (>45); MAGNESIUM LEVEL 0.9 MG/DL (1.8-2.4); POTASSIUM SERUM 3.7 MMOL/L (3.5-5.1)
[2024-03-16 07:19] LABS: ANISOCYTOSIS 2+; ATYPICAL LYMPH 1 % (0-5); BASOPHILS 1 % (0-1); HYPOCHROMASIA 2+; LYMPHOCYTES 23 % (16-44); METAMYELOCYTES 1 % (0-0); MONOCYTES 1 % (0-5); MYELOCYTES 7 % (0-0); NEUTROPHILS 65 % (28-66); PLATELET ESTIMATE NORMAL (NORMAL)
[2024-03-16] MEDS: MAG SULF 1GM/100ML (MAG RUN) 1 GM in IV 1 EA IV SCH (08:04)
[2024-03-16] MEDS: amLODIPine 5 MG TAB PO SCH (09:00)
[2024-03-16] MEDS: NS 500 ML IV ONE (10:52)
[2024-03-16 12:00] VITALS: BP 166/75; TEMP 97.7; O2SAT 95
[2024-03-16 20:18] VITALS: BP 163/77; TEMP 98.2; O2SAT 98
[2024-03-17 04:22] VITALS: BP 183/86; TEMP 97; O2SAT 94
[2024-03-17 07:04] LABS: BASO # 0.1 10^3/uL (0.0-0.2); BASO % 0.6 % (0.0-1.0); EOS # 0.1 10^3/uL (0.0-0.5); EOS % 0.6 % (0.0-3.0); HEMATOCRIT 26.5 % (36.0-47.0); HEMOGLOBIN 8.5 g/dl (12.0-15.5); LYMPH # 1.9 10^3/uL (1.5-5.0); LYMPH % 14.7 % (24.0-44.0); MEAN CORPUSCULAR HEMOGLOBIN 32.4 pg (27.0-33.0); MEAN CORPUSCULAR HGB CONC 32.1 g/dl (32.0-36.5); MEAN CORPUSCULAR VOLUME 101.1 fl (80.0-96.0); MONO # 0.7 10^3/uL (0.0-0.8); MONO % 5.5 % (2.0-8.0); NEUTROPHILS # 8.8 10^3/uL (1.5-8.5); PLATELET COUNT, AUTOMATED 255 10^3/uL (150-450); RED BLOOD COUNT 2.62 10^6/uL (4.00-5.40); WHITE BLOOD COUNT 12.6 10^3/uL (4.0-10.0)
[2024-03-17 07:26] LABS: CALCIUM LEVEL 8.5 MG/DL (8.3-10.6); CREATININE FOR GFR 1.21 MG/DL (0.55-1.30); GLOMERULAR FILTRATION RATE 47.8 (>45); MAGNESIUM LEVEL 1.8 MG/DL (1.8-2.4); POTASSIUM SERUM 3.8 MMOL/L (3.5-5.1)
[2024-03-17] MEDS: **hydrALAZINE HCL** 25 MG TAB PO PRN (07:57)
[2024-03-17] MEDS: predniSONE 20 MG TAB PO SCH (08:58)
[2024-03-17 12:00] VITALS: BP 155/62; TEMP 97.9; O2SAT 96
[2024-03-17 20:46] VITALS: BP 149/69; TEMP 97.9
[2024-03-18 04:06] VITALS: BP 172/83; TEMP 97.9
[2024-03-18 04:53] VITALS: BP 161/83
[2024-03-18 06:19] LABS: BASO # 0.1 10^3/uL (0.0-0.2); BASO % 0.5 % (0.0-1.0); EOS # 0.2 10^3/uL (0.0-0.5); HEMATOCRIT 26.4 % (36.0-47.0); HEMOGLOBIN 8.5 g/dl (12.0-15.5); LYMPH # 2.2 10^3/uL (1.5-5.0); LYMPH % 14.3 % (24.0-44.0); MEAN CORPUSCULAR HEMOGLOBIN 32.7 pg (27.0-33.0); MEAN CORPUSCULAR HGB CONC 32.2 g/dl (32.0-36.5); MEAN CORPUSCULAR VOLUME 101.5 fl (80.0-96.0); MONO # 0.7 10^3/uL (0.0-0.8); MONO % 4.5 % (2.0-8.0); NEUTROPHILS % 70.9 % (36.0-66.0); PLATELET COUNT, AUTOMATED 235 10^3/uL (150-450); WHITE BLOOD COUNT 15.5 10^3/uL (4.0-10.0)
[2024-03-18 06:42] LABS: CALCIUM LEVEL 8.9 MG/DL (8.3-10.6); CREATININE FOR GFR 1.02 MG/DL (0.55-1.30); GLOMERULAR FILTRATION RATE 58.3 (>45); POTASSIUM SERUM 3.7 MMOL/L (3.5-5.1)
[2024-03-18 07:54] LABS: PROCALCITONIN 0.33 ng/ml
[2024-03-18] MEDS: LOSARTAN 25 MG TAB PO SCH (10:02)
[2024-03-18 12:00] VITALS: BP 155/73; TEMP 97.9; O2SAT 98
[2024-03-18 20:55] VITALS: BP 143/77; TEMP 98.2; O2SAT 94
[2024-03-19 06:00] VITALS: BP 141/77; TEMP 98.3; O2SAT 94
[2024-03-19 06:51] LABS: BASO # 0.1 10^3/uL (0.0-0.2); BASO % 0.4 % (0.0-1.0); EOS # 0.1 10^3/uL (0.0-0.5); EOS % 0.6 % (0.0-3.0); HEMATOCRIT 26.3 % (36.0-47.0); HEMOGLOBIN 8.7 g/dl (12.0-15.5); LYMPH # 2.1 10^3/uL (1.5-5.0); LYMPH % 12.8 % (24.0-44.0); MEAN CORPUSCULAR HEMOGLOBIN 33.5 pg (27.0-33.0); MEAN CORPUSCULAR HGB CONC 33.1 g/dl (32.0-36.5); MEAN CORPUSCULAR VOLUME 101.2 fl (80.0-96.0); MONO # 0.5 10^3/uL (0.0-0.8); MONO % 3.2 % (2.0-8.0); NEUTROPHILS # 12.2 10^3/uL (1.5-8.5); NEUTROPHILS % 74.8 % (36.0-66.0); PLATELET COUNT, AUTOMATED 241 10^3/uL (150-450); WHITE BLOOD COUNT 16.3 10^3/uL (4.0-10.0)
[2024-03-19 09:53] LABS: CALCIUM LEVEL 8.9 MG/DL (8.3-10.6); CREATININE FOR GFR 1.03 MG/DL (0.55-1.30); GLOMERULAR FILTRATION RATE 57.6 (>45)
[2024-03-19] MEDS ORDERED: GLUCAGON INJ 1MG VIAL SC PRN (11:05)
[2024-03-19] MEDS ORDERED: GLUCOSE 4 GM CHEW PO PRN (11:05)
[2024-03-19] MEDS ORDERED: DEXTROSE 50% 50ML SYRINGE IV PRN (11:05)
[2024-03-19] MEDS ORDERED: ISOVUE-370 76% 100ML VIAL As Ordered ONE (11:16)
[2024-03-19 12:00] VITALS: BP 135/76; TEMP 98; O2SAT 94
[2024-03-19 20:09] VITALS: BP 146/62; TEMP 98.1; O2SAT 98
[2024-03-20 04:00] VITALS: BP 160/74; TEMP 98.1; O2SAT 96
[2024-03-20 07:27] LABS: HEMATOCRIT 29.7 % (36.0-47.0); HEMOGLOBIN 9.3 g/dl (12.0-15.5); MEAN CORPUSCULAR HEMOGLOBIN 32.1 pg (27.0-33.0); MEAN CORPUSCULAR HGB CONC 31.3 g/dl (32.0-36.5); MEAN CORPUSCULAR VOLUME 102.4 fl (80.0-96.0); PLATELET COUNT, AUTOMATED 236 10^3/uL (150-450); WHITE BLOOD COUNT 14.9 10^3/uL (4.0-10.0)
[2024-03-20 08:17] LABS: ANISOCYTOSIS 1+; ATYPICAL LYMPH 2 % (0-5); BASOPHILS 3 % (0-1); LYMPHOCYTES 10 % (16-44); MONOCYTES 3 % (0-5); NEUTROPHILS 82 % (28-66); PLATELET ESTIMATE NORMAL (NORMAL); POIKILOCYTOSIS 1+
[2024-03-20 08:18] LABS: SPHEROCYTES 1+
[2024-03-20 12:00] VITALS: BP 148/68; TEMP 97.1; O2SAT 98
[2024-03-21 04:00] VITALS: BP 163/70; TEMP 97.5; O2SAT 96
[2024-03-21] MEDS: MAALOX 30 ML SUSP *UDC PO PRN (20:49)
[2024-03-22 05:26] VITALS: BP 111/69; TEMP 98.2; O2SAT 93
[2024-03-23 04:55] VITALS: BP 162/70; TEMP 97.2; O2SAT 97
[2024-03-23 11:42] VITALS: BP 129/55
[2024-03-23] MEDS ORDERED: FOLI1TAB11 PO (14:11)
[2024-03-23] MEDS ORDERED: RISATAB3 PO (14:11)
[2024-03-23] MEDS ORDERED: AMLO1TAB25 PO (14:11)
[2024-03-23] MEDS ORDERED: LOSA-527 PO (14:11)
[2024-03-23] MEDS ORDERED: ACET1TAB55 PO (14:11)
[2024-03-23] MEDS ORDERED: PANT40TA29 PO (14:11)
[2024-03-23] MEDS ORDERED: THERTAB52 PO (14:11)
[2024-03-23] MEDS ORDERED: MUCI600T31 PO (14:11)
[2024-03-23] MEDS ORDERED: SANT250O8 TOP (14:11)
== END 2024-03-23 16:00 | disposition home health service (06) | DRG 135 ==
LOC: M ED 09:21 → EDBD 09:21 → M ED INP 13:11 → M MS5PR 15:15
PROVIDERS: ADMIT Internal Medicine Nephrology; ATTEND Internal Medicine
DX: S22.41XA Multiple fractures of ribs, right side, initial encounter for closed fracture (principal); J96.01 Acute respiratory failure with hypoxia; I50.33 Acute on chronic diastolic (congestive) heart failure; L89.310 Pressure ulcer of right buttock, unstageable; N17.9 Acute kidney failure, unspecified; A04.72 Enterocolitis due to Clostridium difficile, not specified as recurrent; L89.320 Pressure ulcer of left buttock, unstageable; I11.0 Hypertensive heart disease with heart failure; M62.82 Rhabdomyolysis; E87.1 Hypo-osmolality and hyponatremia; I65.29 Occlusion and stenosis of unspecified carotid artery; J44.1 Chronic obstructive pulmonary disease with (acute) exacerbation; C34.92 Malignant neoplasm of unspecified part of left bronchus or lung; F10.20 Alcohol dependence, uncomplicated; F17.200 Nicotine dependence, unspecified, uncomplicated; I73.9 Peripheral vascular disease, unspecified; K57.30 Diverticulosis of large intestine without perforation or abscess without bleeding; M85.80 Other specified disorders of bone density and structure, unspecified site; R29.6 Repeated falls; S42.201A Unspecified fracture of upper end of right humerus, initial encounter for closed fracture; D64.9 Anemia, unspecified; K21.9 Gastro-esophageal reflux disease without esophagitis; D72.829 Elevated white blood cell count, unspecified; W18.30XA Fall on same level, unspecified, initial encounter; Y92.009 Unspecified place in unspecified non-institutional (private) residence as the place of occurrence of the external cause; E78.5 Hyperlipidemia, unspecified

== ENCOUNTER 2024-03-28 12:50 | Inpatient (IN) | payer OTHER ==
[~2024-03-28] VITALS: Ht 157.5 cm; Wt 56.6 kg
[~2024-03-28 12:50] MED LIST changes: +ACET1TAB55 PO; +DUPI300P SQ; +LOSA-527 PO; +MUCI600T31 PO; +NEBI20TA2 PO; +PANT40TA29 PO; +RISATAB3 PO; +SANT250O8 TOP; +THERTAB52 PO
[2024-03-28 14:30] LABS: BASO # 0.1 10^3/uL (0.0-0.2); BASO % 0.9 % (0.0-1.0); EOS # 0.3 10^3/uL (0.0-0.5); EOS % 3.3 % (0.0-3.0); HEMATOCRIT 32.6 % (36.0-47.0); HEMOGLOBIN 10.3 g/dl (12.0-15.5); LYMPH # 1.5 10^3/uL (1.5-5.0); LYMPH % 14.4 % (24.0-44.0); MEAN CORPUSCULAR HEMOGLOBIN 32.2 pg (27.0-33.0); MEAN CORPUSCULAR HGB CONC 31.6 g/dl (32.0-36.5); MEAN CORPUSCULAR VOLUME 101.9 fl (80.0-96.0); MONO # 0.7 10^3/uL (0.0-0.8); MONO % 6.4 % (2.0-8.0); NEUTROPHILS # 7.7 10^3/uL (1.5-8.5); NEUTROPHILS % 73.8 % (36.0-66.0); PLATELET COUNT, AUTOMATED 296 10^3/uL (150-450); WHITE BLOOD COUNT 10.4 10^3/uL (4.0-10.0)
[2024-03-28 14:51] LABS: ETHYL ALCOHOL (ETHANOL) 0.004 % (0.000-0.010)
[2024-03-28 14:53] LABS: ALBUMIN 3.2 G/DL (3.2-5.2); ALKALINE PHOSPHATASE 146 U/L (46-116); ALT/SGPT 34 U/L (7.0-40); AST/SGOT 39 U/L (<34); BILIRUBIN,DIRECT 0.3 MG/DL (<0.4); BILIRUBIN,TOTAL 0.6 MG/DL (0.3-1.2); BLOOD UREA NITROGEN 51 MG/DL (9-23); CALCIUM LEVEL 9.8 MG/DL (8.3-10.6); CARBON DIOXIDE LEVEL 20 MMOL/L (20-31); CHLORIDE LEVEL 104 MMOL/L (98-107); CREATININE FOR GFR 1.26 MG/DL (0.55-1.30); GLOMERULAR FILTRATION RATE 45.7 (>45); GLUCOSE, FASTING 68 MG/DL (74-106); POTASSIUM SERUM 4.3 MMOL/L (3.5-5.1); SALICYLATE LEVEL < 3.0 MG/DL (<30); SODIUM LEVEL 136 MMOL/L (136-145); TOTAL PROTEIN 7.3 G/DL (5.7-8.2)
[2024-03-28 14:54] LABS: CK-MB VALUE MASS < 1.0 NG/ML (<3.6)
[2024-03-28 14:57] LABS: THYROID STIMULATING HORMONE 3.718 uIU/ML (0.55-4.78)
[2024-03-28 15:02] LABS: OSMOLALITY SERUM 306 MOSM/KG (280-301)
[2024-03-28 15:04] LABS: CPK CREATINE PHOSPHOKINASE < 15 U/L (34-145)
[2024-03-28] MEDS: cefTRIAXone SOD 1 GM in D5W MINI-BAG PLUS 50 ML IV ONE (19:02)
[2024-03-28] MEDS: NS 1,000 ML IV SCH (19:02)
[2024-03-28] MEDS: ADVAIR HFA 115/21MCG INHALER INH SCH (20:00)
[2024-03-28] MEDS ORDERED: HOME MED LIST COMPLETE! XX SCH (20:05)
[2024-03-28] MEDS ORDERED: MOM 30ML SUSPENSION UDC PO PRN (20:15)
[2024-03-28] MEDS ORDERED: LORazepam 2 MG TAB PO PRN (20:20)
[2024-03-28] MEDS: DOCUSATE SODIUM 100MG CAPSULE PO SCH (20:26)
[2024-03-28 21:19] LABS: PROCALCITONIN 0.23 ng/ml
[2024-03-28 22:12] LABS: HEMATOCRIT 29.9 % (36.0-47.0); HEMOGLOBIN 9.5 g/dl (12.0-15.5)
[2024-03-28] MEDS: THIAMINE 100 MG TAB PO SCH (23:01)
[2024-03-29 05:30] VITALS: BP 149/71; TEMP 97.2; O2SAT 90
[2024-03-29 08:00] VITALS: BP 143/66; TEMP 97.5; O2SAT 92
[2024-03-29 08:23] LABS: HEMATOCRIT 30.1 % (36.0-47.0); HEMOGLOBIN 9.7 g/dl (12.0-15.5); MEAN CORPUSCULAR HEMOGLOBIN 32.6 pg (27.0-33.0); MEAN CORPUSCULAR HGB CONC 32.2 g/dl (32.0-36.5); PLATELET COUNT, AUTOMATED 247 10^3/uL (150-450); RED BLOOD COUNT 2.98 10^6/uL (4.00-5.40); WHITE BLOOD COUNT 8.9 10^3/uL (4.0-10.0)
[2024-03-29 08:46] LABS: CALCIUM LEVEL 9.1 MG/DL (8.3-10.6); CREATININE FOR GFR 1.33 MG/DL (0.55-1.30); GLOMERULAR FILTRATION RATE 42.9 (>45); POTASSIUM SERUM 4.5 MMOL/L (3.5-5.1)
[2024-03-29] MEDS: NEBIVOLOL 5 MG TAB (BYSTOLIC) PO SCH (09:31)
[2024-03-29] MEDS: VANCOMYCIN 125MG CAPSULE PO SCH (09:31)
[2024-03-29] MEDS: FOLIC ACID 1MG TAB PO SCH (09:32)
[2024-03-29] MEDS: ENOXAPARIN 40MG/0.4ML SYRINGE (J1650 PER 10MG) SC SCH (09:32)
[2024-03-29] MEDS: MULTIVITAMINS/MINERALS THERAP 1 TAB PO SCH (09:32)
[2024-03-29 12:00] VITALS: BP 128/61; TEMP 97.4; O2SAT 100
[2024-03-29 16:00] VITALS: BP 121/65; TEMP 97.5; O2SAT 98
[2024-03-29 20:35] VITALS: BP 142/60; TEMP 97.5; O2SAT 95
[2024-03-29] MEDS: cefTRIAXone SOD 1 GM in D5W MINI-BAG PLUS 50 ML IV SCH (21:31)
[2024-03-30 02:41] VITALS: BP 140/75; TEMP 97.9; O2SAT 94
[2024-03-30 06:05] LABS: HEMATOCRIT 26.7 % (36.0-47.0); HEMOGLOBIN 8.6 g/dl (12.0-15.5); MEAN CORPUSCULAR HEMOGLOBIN 32.3 pg (27.0-33.0); MEAN CORPUSCULAR HGB CONC 32.2 g/dl (32.0-36.5); MEAN CORPUSCULAR VOLUME 100.4 fl (80.0-96.0); PLATELET COUNT, AUTOMATED 215 10^3/uL (150-450); RED BLOOD COUNT 2.66 10^6/uL (4.00-5.40); WHITE BLOOD COUNT 9.2 10^3/uL (4.0-10.0)
[2024-03-30 06:30] LABS: CALCIUM LEVEL 9.2 MG/DL (8.3-10.6); CREATININE FOR GFR 1.53 MG/DL (0.55-1.30); GLOMERULAR FILTRATION RATE 36.5 (>45); POTASSIUM SERUM 4.3 MMOL/L (3.5-5.1)
[2024-03-30 12:00] VITALS: BP 156/65; TEMP 97.9; O2SAT 95
[2024-03-30] MEDS: LevoFLOXacin 750 MG TABLET PO SCH (13:55)
[2024-03-30] MEDS: NS 1,000 ML IV ONE (13:56)
[2024-03-30 20:04] VITALS: BP 174/75; TEMP 98.2; O2SAT 98
[2024-03-30] MEDS: ACETAMINOPHEN TAB 650MG DOSE (2X325MG) PO PRN (21:19)
[2024-03-31 03:52] VITALS: BP 166/75; TEMP 97.5; O2SAT 95
[2024-03-31 04:00] VITALS: BP 166/68
[2024-03-31 07:19] LABS: HEMATOCRIT 28.4 % (36.0-47.0); HEMOGLOBIN 8.9 g/dl (12.0-15.5); MEAN CORPUSCULAR HEMOGLOBIN 32.2 pg (27.0-33.0); MEAN CORPUSCULAR HGB CONC 31.3 g/dl (32.0-36.5); MEAN CORPUSCULAR VOLUME 102.9 fl (80.0-96.0); PLATELET COUNT, AUTOMATED 192 10^3/uL (150-450); RED BLOOD COUNT 2.76 10^6/uL (4.00-5.40)
[2024-03-31 07:43] LABS: CALCIUM LEVEL 9.2 MG/DL (8.3-10.6); CREATININE FOR GFR 1.32 MG/DL (0.55-1.30); GLOMERULAR FILTRATION RATE 43.3 (>45); POTASSIUM SERUM 4.2 MMOL/L (3.5-5.1)
[2024-03-31 12:00] VITALS: BP 167/80; TEMP 97.7; O2SAT 94
[2024-03-31 20:22] VITALS: BP 155/75; TEMP 98.1; O2SAT 98
[2024-04-01 04:00] VITALS: BP 154/76; TEMP 97.7; O2SAT 97
[2024-04-01 06:31] LABS: HEMATOCRIT 29.3 % (36.0-47.0); HEMOGLOBIN 9.4 g/dl (12.0-15.5); MEAN CORPUSCULAR HEMOGLOBIN 32.3 pg (27.0-33.0); MEAN CORPUSCULAR HGB CONC 32.1 g/dl (32.0-36.5); MEAN CORPUSCULAR VOLUME 100.7 fl (80.0-96.0); PLATELET COUNT, AUTOMATED 207 10^3/uL (150-450); RED BLOOD COUNT 2.91 10^6/uL (4.00-5.40)
[2024-04-01 06:56] LABS: CALCIUM LEVEL 9.5 MG/DL (8.3-10.6); CREATININE FOR GFR 1.2 MG/DL (0.55-1.30); GLOMERULAR FILTRATION RATE 48.3 (>45); POTASSIUM SERUM 4.8 MMOL/L (3.5-5.1)
[2024-04-01 12:00] VITALS: BP 159/77; TEMP 97.9; O2SAT 96
[2024-04-01 20:46] VITALS: BP 154/60; TEMP 98.1; O2SAT 97
[2024-04-02 03:56] VITALS: BP 158/74; TEMP 97.5; O2SAT 97
[2024-04-02 05:14] LABS: HEMATOCRIT 28.4 % (36.0-47.0); MEAN CORPUSCULAR HEMOGLOBIN 32.1 pg (27.0-33.0); MEAN CORPUSCULAR HGB CONC 31.7 g/dl (32.0-36.5); MEAN CORPUSCULAR VOLUME 101.4 fl (80.0-96.0); PLATELET COUNT, AUTOMATED 195 10^3/uL (150-450); WHITE BLOOD COUNT 6.7 10^3/uL (4.0-10.0)
[2024-04-02 05:37] LABS: CALCIUM LEVEL 8.9 MG/DL (8.3-10.6); CREATININE FOR GFR 1.16 MG/DL (0.55-1.30); GLOMERULAR FILTRATION RATE 50.2 (>45); POTASSIUM SERUM 4.4 MMOL/L (3.5-5.1)
[2024-04-02 06:16] VITALS: BP 152/62; TEMP 98.2; O2SAT 97
[2024-04-02 12:00] VITALS: BP 163/78; TEMP 97.5; O2SAT 98
[2024-04-02 21:00] VITALS: BP 146/54; TEMP 98; O2SAT 96
[2024-04-03 04:05] VITALS: BP 149/66; TEMP 97.7; O2SAT 95
[2024-04-03 06:01] LABS: HEMATOCRIT 29.9 % (36.0-47.0); HEMOGLOBIN 9.5 g/dl (12.0-15.5); MEAN CORPUSCULAR HEMOGLOBIN 31.8 pg (27.0-33.0); MEAN CORPUSCULAR HGB CONC 31.8 g/dl (32.0-36.5); PLATELET COUNT, AUTOMATED 203 10^3/uL (150-450); RED BLOOD COUNT 2.99 10^6/uL (4.00-5.40); WHITE BLOOD COUNT 6.3 10^3/uL (4.0-10.0)
[2024-04-03 06:23] LABS: CALCIUM LEVEL 9.6 MG/DL (8.3-10.6); CREATININE FOR GFR 1.14 MG/DL (0.55-1.30); GLOMERULAR FILTRATION RATE 51.2 (>45); POTASSIUM SERUM 4.8 MMOL/L (3.5-5.1)
[2024-04-03 12:00] VITALS: BP 168/80; TEMP 97.5; O2SAT 96
[2024-04-03 20:34] VITALS: BP 142/71; TEMP 98.6; O2SAT 95
[2024-04-03] MEDS: CALAMINE LOTION 177 ML BTL TOP SCH (21:09)
[2024-04-04 04:25] VITALS: BP 142/67; TEMP 98.1; O2SAT 96
[2024-04-04 12:00] VITALS: BP 163/64; TEMP 98.1; O2SAT 96
[2024-04-04 20:30] VITALS: BP 164/67; TEMP 98.1; O2SAT 94
[2024-04-05 05:30] VITALS: BP 178/92; TEMP 98.1; O2SAT 96
[2024-04-05 12:00] VITALS: BP 161/71; TEMP 97.9; O2SAT 97
[2024-04-05 20:50] VITALS: BP 172/81; TEMP 98.1; O2SAT 98
[2024-04-06] MEDS ORDERED: PERMETHRIN 5% CREAM 60 GM TOP SCH
[2024-04-06 04:00] VITALS: BP 171/80; TEMP 98.2; O2SAT 98
[2024-04-06 08:11] LABS: HEMATOCRIT 30.8 % (36.0-47.0); HEMOGLOBIN 9.8 g/dl (12.0-15.5); MEAN CORPUSCULAR HEMOGLOBIN 31.8 pg (27.0-33.0); MEAN CORPUSCULAR HGB CONC 31.8 g/dl (32.0-36.5); PLATELET COUNT, AUTOMATED 193 10^3/uL (150-450); RED BLOOD COUNT 3.08 10^6/uL (4.00-5.40); WHITE BLOOD COUNT 5.7 10^3/uL (4.0-10.0)
[2024-04-06 08:40] LABS: CALCIUM LEVEL 9.3 MG/DL (8.3-10.6); CREATININE FOR GFR 1.27 MG/DL (0.55-1.30); GLOMERULAR FILTRATION RATE 45.2 (>45); POTASSIUM SERUM 4.2 MMOL/L (3.5-5.1)
[2024-04-06 12:00] VITALS: BP 140/62; TEMP 98.2; O2SAT 97
[2024-04-06] MEDS: PERMETHRIN 5% CREAM 60 GM TOP ONE (15:34)
[2024-04-06 19:33] VITALS: BP 158/78; TEMP 98.1; O2SAT 95
[2024-04-07 03:53] VITALS: BP 160/78; TEMP 98.1; O2SAT 97
[2024-04-07 12:00] VITALS: BP 168/82; TEMP 98.1; O2SAT 96
[2024-04-08] MEDS: NYSTATIN 100,000 UNITS/GM TOPICAL PWD 15GM TOP PRN (00:40)
[2024-04-08 04:10] VITALS: BP 145/72; TEMP 97.9; O2SAT 98
[2024-04-08 12:24] VITALS: BP 157/70; TEMP 97.1; O2SAT 93
[2024-04-08 19:58] VITALS: BP 176/81; TEMP 98.2; O2SAT 94
[2024-04-09 04:42] VITALS: BP 160/70; TEMP 97.9; O2SAT 96
[2024-04-09 12:00] VITALS: BP 168/86; TEMP 98.1; O2SAT 100
[2024-04-09 20:46] VITALS: BP 166/81; TEMP 98.1; O2SAT 93
[2024-04-10 04:26] VITALS: BP 168/80; TEMP 97.9; O2SAT 94
[2024-04-10 12:11] LABS: HEMATOCRIT 29.8 % (36.0-47.0); HEMOGLOBIN 9.5 g/dl (12.0-15.5); MEAN CORPUSCULAR HEMOGLOBIN 32.1 pg (27.0-33.0); MEAN CORPUSCULAR HGB CONC 31.9 g/dl (32.0-36.5); MEAN CORPUSCULAR VOLUME 100.7 fl (80.0-96.0); PLATELET COUNT, AUTOMATED 208 10^3/uL (150-450); RED BLOOD COUNT 2.96 10^6/uL (4.00-5.40); WHITE BLOOD COUNT 8.5 10^3/uL (4.0-10.0)
[2024-04-10 12:14] VITALS: BP 162/83; TEMP 97.9; O2SAT 96
[2024-04-10 12:38] LABS: CALCIUM LEVEL 9.7 MG/DL (8.3-10.6); CREATININE FOR GFR 1.07 MG/DL (0.55-1.30); GLOMERULAR FILTRATION RATE 55.1 (>45); MAGNESIUM LEVEL 1.3 MG/DL (1.8-2.4); POTASSIUM SERUM 4.3 MMOL/L (3.5-5.1)
[2024-04-10 21:29] VITALS: BP 160/78; TEMP 98.1; O2SAT 94
[2024-04-11 03:40] VITALS: BP 161/72; TEMP 97.9; O2SAT 95
[2024-04-11] MEDS: ZINC SULFATE 220 MG CAP PO SCH (08:52)
[2024-04-11 12:00] VITALS: BP 143/58; TEMP 97.9; O2SAT 96
[2024-04-11 22:00] VITALS: BP 146/66; TEMP 98.1; O2SAT 97
[2024-04-12 04:00] VITALS: BP 144/67; TEMP 97.3; O2SAT 95
[2024-04-12 10:22] LABS: CALCIUM LEVEL 9.5 MG/DL (8.3-10.6); CREATININE FOR GFR 1.18 MG/DL (0.55-1.30); GLOMERULAR FILTRATION RATE 49.2 (>45); MAGNESIUM LEVEL 1.4 MG/DL (1.8-2.4); POTASSIUM SERUM 4.9 MMOL/L (3.5-5.1)
[2024-04-12 12:00] VITALS: BP 190/98; TEMP 97.9; O2SAT 98
[2024-04-12 12:10] VITALS: BP 188/96
[2024-04-12] MEDS: MAG SULF 1GM/100ML (MAG RUN) 1 GM in IV 1 EA IV SCH (13:40)
[2024-04-12] MEDS: NEBIVOLOL 5 MG TAB (BYSTOLIC) PO ONE (13:42)
[2024-04-12 17:10] VITALS: BP 188/100; TEMP 98.4; O2SAT 95
[2024-04-12] MEDS: **hydrALAZINE HCL** 25 MG TAB PO SCH (17:24)
[2024-04-12 18:43] VITALS: BP 162/90
[2024-04-13 04:38] VITALS: BP 141/59; TEMP 97.9; O2SAT 95
[2024-04-13] MEDS: NEBIVOLOL 5 MG TAB (BYSTOLIC) PO SCH (10:04)
[2024-04-13 20:00] VITALS: BP 153/67; TEMP 98.1; O2SAT 94
[2024-04-13] MEDS: PERMETHRIN 5% CREAM 60 GM TOP ONE (21:29)
[2024-04-14 04:00] VITALS: BP 137/63; TEMP 98.1; O2SAT 97
[2024-04-14 09:30] LABS: BASO # 0.1 10^3/uL (0.0-0.2); BASO % 1.2 % (0.0-1.0); EOS # 0.3 10^3/uL (0.0-0.5); EOS % 4.4 % (0.0-3.0); HEMATOCRIT 30.3 % (36.0-47.0); HEMOGLOBIN 9.8 g/dl (12.0-15.5); LYMPH # 1.8 10^3/uL (1.5-5.0); LYMPH % 23.4 % (24.0-44.0); MEAN CORPUSCULAR HEMOGLOBIN 31.7 pg (27.0-33.0); MEAN CORPUSCULAR HGB CONC 32.3 g/dl (32.0-36.5); MEAN CORPUSCULAR VOLUME 98.1 fl (80.0-96.0); MONO # 0.8 10^3/uL (0.0-0.8); MONO % 9.9 % (2.0-8.0); NEUTROPHILS # 4.6 10^3/uL (1.5-8.5); NEUTROPHILS % 60.2 % (36.0-66.0); PLATELET COUNT, AUTOMATED 210 10^3/uL (150-450); RED BLOOD COUNT 3.09 10^6/uL (4.00-5.40); WHITE BLOOD COUNT 7.7 10^3/uL (4.0-10.0)
[2024-04-14 09:47] LABS: CALCIUM LEVEL 9.7 MG/DL (8.3-10.6); CREATININE FOR GFR 1.26 MG/DL (0.55-1.30); GLOMERULAR FILTRATION RATE 45.7 (>45); MAGNESIUM LEVEL 1.7 MG/DL (1.8-2.4); POTASSIUM SERUM 4.5 MMOL/L (3.5-5.1)
[2024-04-15 04:00] VITALS: BP 143/64; TEMP 96.8; O2SAT 97
[2024-04-15] MEDS: MAG SULF 1GM/100ML (MAG RUN) 1 GM in IV 1 EA IV SCH (12:16)
[2024-04-16 05:39] VITALS: TEMP 97.5; O2SAT 64; O2SAT 94
[2024-04-17 04:08] VITALS: BP 140/66; TEMP 97.5; O2SAT 95
[2024-04-18 05:00] VITALS: BP 124/54; TEMP 96.8; O2SAT 93
[2024-04-18 06:07] LABS: BASO # 0.1 10^3/uL (0.0-0.2); BASO % 0.6 % (0.0-1.0); EOS # 0.4 10^3/uL (0.0-0.5); EOS % 2.9 % (0.0-3.0); HEMATOCRIT 29.9 % (36.0-47.0); HEMOGLOBIN 9.7 g/dl (12.0-15.5); LYMPH % 15.6 % (24.0-44.0); MEAN CORPUSCULAR HEMOGLOBIN 32.4 pg (27.0-33.0); MEAN CORPUSCULAR HGB CONC 32.4 g/dl (32.0-36.5); MONO # 1.1 10^3/uL (0.0-0.8); MONO % 8.8 % (2.0-8.0); NEUTROPHILS # 9.2 10^3/uL (1.5-8.5); NEUTROPHILS % 71.4 % (36.0-66.0); PLATELET COUNT, AUTOMATED 202 10^3/uL (150-450); RED BLOOD COUNT 2.99 10^6/uL (4.00-5.40); WHITE BLOOD COUNT 12.9 10^3/uL (4.0-10.0)
[2024-04-18 06:35] LABS: CALCIUM LEVEL 9.8 MG/DL (8.3-10.6); CREATININE FOR GFR 1.37 MG/DL (0.55-1.30); GLOMERULAR FILTRATION RATE 41.5 (>45); MAGNESIUM LEVEL 1.6 MG/DL (1.8-2.4); POTASSIUM SERUM 4.5 MMOL/L (3.5-5.1)
[2024-04-18] MEDS ORDERED: MAG SULF 1GM/100ML (MAG RUN) 1 GM in IV 1 EA IV SCH (10:00)
[2024-04-18] MEDS: MAGNESIUM OXIDE 400MG TAB (MAG-OX) PO ONE (13:05)
[2024-04-18 17:45] VITALS: BP 132/58
[2024-04-18] MEDS: MAGNESIUM OXIDE 400MG TAB (MAG-OX) PO SCH (20:33)
[2024-04-19 04:59] VITALS: BP 127/57; TEMP 97.9; O2SAT 98
[2024-04-20 00:15] VITALS: BP 141/66
[2024-04-20 04:14] VITALS: BP 142/50; TEMP 98.2; O2SAT 95
[2024-04-20 05:36] LABS: HEMATOCRIT 29.2 % (36.0-47.0); HEMOGLOBIN 9.3 g/dl (12.0-15.5); MEAN CORPUSCULAR HEMOGLOBIN 31.5 pg (27.0-33.0); MEAN CORPUSCULAR HGB CONC 31.8 g/dl (32.0-36.5); PLATELET COUNT, AUTOMATED 196 10^3/uL (150-450); RED BLOOD COUNT 2.95 10^6/uL (4.00-5.40); WHITE BLOOD COUNT 6.8 10^3/uL (4.0-10.0)
[2024-04-20 05:54] LABS: CALCIUM LEVEL 9.1 MG/DL (8.3-10.6); CREATININE FOR GFR 1.29 MG/DL (0.55-1.30); GLOMERULAR FILTRATION RATE 44.4 (>45); POTASSIUM SERUM 4.5 MMOL/L (3.5-5.1)
[2024-04-21 05:00] VITALS: BP 145/60; TEMP 98.4; O2SAT 95
[2024-04-21] MEDS ORDERED: ACET1TAB55 PO (07:37)
[2024-04-21] MEDS ORDERED: BYST1TAB2 PO (07:37)
[2024-04-21] MEDS ORDERED: CALALOT4 TOP (07:37)
[2024-04-21] MEDS ORDERED: ZINC220CA PO (07:37)
[2024-04-21] MEDS ORDERED: HYDR25TA87 PO (07:37)
[2024-04-21] MEDS ORDERED: MAGN400T2 PO (07:37)
[2024-04-21] MEDS ORDERED: FOLI1TAB11 PO (07:37)
[2024-04-21 08:59] VITALS: BP 141/56
[2024-04-21] MEDS ORDERED: BYST1TAB PO (10:08)
== END 2024-04-21 09:19 | disposition home health service (06) | DRG 463 ==
LOC: EDBD 12:50 → M ED 12:50 → M ED INP 20:11 → M PCU 03-29 05:25 → M MSPAV 03-30 02:38
PROVIDERS: ADMIT Student in an Organized Health Care Education/Training Program; ATTEND Student in an Organized Health Care Education/Training Program
DX: N39.0 Urinary tract infection, site not specified (principal); N17.9 Acute kidney failure, unspecified; L89.313 Pressure ulcer of right buttock, stage 3; I11.0 Hypertensive heart disease with heart failure; L89.152 Pressure ulcer of sacral region, stage 2; D50.9 Iron deficiency anemia, unspecified; F10.10 Alcohol abuse, uncomplicated; L89.323 Pressure ulcer of left buttock, stage 3; I50.32 Chronic diastolic (congestive) heart failure; E83.42 Hypomagnesemia; E87.1 Hypo-osmolality and hyponatremia; J43.9 Emphysema, unspecified; I65.29 Occlusion and stenosis of unspecified carotid artery; I25.10 Atherosclerotic heart disease of native coronary artery without angina pectoris; I73.9 Peripheral vascular disease, unspecified; K21.9 Gastro-esophageal reflux disease without esophagitis; K57.30 Diverticulosis of large intestine without perforation or abscess without bleeding; N95.0 Postmenopausal bleeding; R21 Rash and other nonspecific skin eruption; R26.9 Unspecified abnormalities of gait and mobility; R29.6 Repeated falls; R53.1 Weakness; S42.401D Unspecified fracture of lower end of right humerus, subsequent encounter for fracture with routine healing; Z95.5 Presence of coronary angioplasty implant and graft; Z95.2 Presence of prosthetic heart valve; Z98.41 Cataract extraction status, right eye; Z98.42 Cataract extraction status, left eye; F17.200 Nicotine dependence, unspecified, uncomplicated; I35.0 Nonrheumatic aortic (valve) stenosis; E53.8 Deficiency of other specified B group vitamins; E78.5 Hyperlipidemia, unspecified

== ENCOUNTER → 2024-05-13 | Outpatient (CLI) | payer OTHER ==
[~2024-05-13] MED LIST changes: +BYST1TAB PO; +BYST1TAB2 PO; +CALALOT4 TOP; +HYDR25TA87 PO; +MAGN400T2 PO; +ZINC220CA PO
== END ==
LOC: M SOG 07:52
PROVIDERS: ATTEND Physician Assistant
DX: M25.511 Pain in right shoulder (principal); S42.291D Other displaced fracture of upper end of right humerus, subsequent encounter for fracture with routine healing

== ENCOUNTER → 2024-05-17 | Outpatient (REF) | payer OTHER ==
[2024-05-18 11:59] LABS: ALBUMIN 3.2 G/DL (3.2-5.2); BILIRUBIN,TOTAL 0.2 MG/DL (0.3-1.2); CALCIUM LEVEL 9.1 MG/DL (8.3-10.6); CREATININE FOR GFR 1.29 MG/DL (0.55-1.30); GLOMERULAR FILTRATION RATE 44.4 (>45); TOTAL PROTEIN 6.9 G/DL (5.7-8.2)
[2024-05-18 12:11] LABS: FOLATE 8.79 NG/ML (>5.4)
[2024-05-18 12:13] LABS: BASO # 0.1 10^3/uL (0.0-0.2); BASO % 1.5 % (0.0-1.0); EOS # 0.2 10^3/uL (0.0-0.5); EOS % 2.7 % (0.0-3.0); HEMATOCRIT 35.8 % (36.0-47.0); HEMOGLOBIN 11.2 g/dl (12.0-15.5); LYMPH # 1.2 10^3/uL (1.5-5.0); LYMPH % 18.3 % (24.0-44.0); MEAN CORPUSCULAR HEMOGLOBIN 30.2 pg (27.0-33.0); MEAN CORPUSCULAR HGB CONC 31.3 g/dl (32.0-36.5); MEAN CORPUSCULAR VOLUME 96.5 fl (80.0-96.0); MONO # 0.6 10^3/uL (0.0-0.8); MONO % 8.4 % (2.0-8.0); NEUTROPHILS # 4.7 10^3/uL (1.5-8.5); NEUTROPHILS % 68.5 % (36.0-66.0); PLATELET COUNT, AUTOMATED 205 10^3/uL (150-450); RED BLOOD COUNT 3.71 10^6/uL (4.00-5.40); WHITE BLOOD COUNT 6.8 10^3/uL (4.0-10.0)
== END ==
LOC: M SFHCLERA 14:19
PROVIDERS: ATTEND Physician Assistant
DX: F10.20 Alcohol dependence, uncomplicated (principal)

== ENCOUNTER → 2024-08-11 | Outpatient (REF) | payer MEDICAID, OTHER ==
[~2024-08-11] MED LIST changes: +NADO40TA40 PO; -NADO40TA6 PO
[2024-08-13 19:51] LABS: HPV APTIMA Detected (Not Detected)
== END ==
LOC: M SFHCWAGY 17:57
PROVIDERS: ATTEND Specialist
DX: Z01.419 Encounter for gynecological examination (general) (routine) without abnormal findings (principal); R87.610 Atypical squamous cells of undetermined significance on cytologic smear of cervix (ASC-US)

== ENCOUNTER → 2024-11-03 | Outpatient (REF) | payer MEDICAID, OTHER | LOC: M SFHCWAGY 18:20 | PROVIDERS: ATTEND Specialist | DX: R87.622 Low grade squamous intraepithelial lesion on cytologic smear of vagina (LGSIL) (principal); N72 Inflammatory disease of cervix uteri ==

== ENCOUNTER → 2025-03-16 | Outpatient (REF) | payer OTHER ==
[~2025-03-16] MED LIST changes: +TOPI-256 PO; -TOPI25TA10 PO
[2025-03-16 12:05] LABS: BASO # 0.0 10^3/uL (0.0-0.2); BASO % 0.5 % (0.0-1.0); EOS # 0.2 10^3/uL (0.0-0.5); EOS % 3.1 % (0.0-3.0); LYMPH # 1.1 10^3/uL (1.5-5.0); LYMPH % 15.0 % (24.0-44.0); MONO # 0.8 10^3/uL (0.0-0.8); MONO % 10.5 % (2.0-8.0); NEUTROPHILS # 5.2 10^3/uL (1.5-8.5); NEUTROPHILS % 70.0 % (36.0-66.0); PLATELET COUNT, AUTOMATED 109 10^3/uL (150-450)
[2025-03-16 12:09] LABS: IRON (FE) 31 UG/DL (50-170); PERCENT SATURATION 11.2 % (13.2-45.0)
[2025-03-16 12:14] LABS: ALT/SGPT < 9 U/L (7.0-40); AST/SGOT 15 U/L (<34); CALCIUM LEVEL 7.3 MG/DL (8.3-10.6); CARBON DIOXIDE LEVEL 26 MMOL/L (20-31); CHLORIDE LEVEL 100 MMOL/L (98-107); CHOLESTEROL LEVEL 127 MG/DL (<200); CHOLESTEROL RISK RATIO 3.98 (<5); CREATININE FOR GFR 1.67 MG/DL (0.55-1.30); GLOMERULAR FILTRATION RATE 34.0 (>45); LDL CHOLESTEROL 62.9 MG/DL (<100); MAGNESIUM LEVEL 1.0 MG/DL (1.8-2.4); NON-HDL-C 95.1 MG/DL; PHOSPHORUS LEVEL 4.0 MG/DL (2.4-5.1); POTASSIUM SERUM 3.7 MMOL/L (3.5-5.1); PTH INTACT 346.4 PG/ML (18.5-88.0); SODIUM LEVEL 137 MMOL/L (136-145); TOTAL 25(OH) VITAMIN D 4.8 NG/ML (20.0-100.0); TRIGLYCERIDES LEVEL 161 MG/DL (<150)
[2025-03-16 12:16] LABS: INR 1.13
[2025-03-16 12:42] LABS: ESTIMATED AVERAGE GLUCOSE 82.0 MG/DL (60-110)
== END ==
LOC: M SFHCLERA 10:28
PROVIDERS: ATTEND Internal Medicine
DX: E80.1 Porphyria cutanea tarda (principal); N18.4 Chronic kidney disease, stage 4 (severe)

== ENCOUNTER → 2025-04-04 | Outpatient (REF) | payer MEDICAID, OTHER ==
[2025-04-04 18:01] LABS: APPEARANCE, URINE CLEAR (CLEAR); BACTERIA, URINE AUTO NEGATIVE (NEGATIVE); BILIRUBIN, URINE AUTO NEGATIVE (NEGATIVE); BLOOD, URINE BLOOD NEGATIVE (NEGATIVE); GLUCOSE, URINE (UA) AUTO NEGATIVE (NEGATIVE); KETONE, URINE AUTO NEGATIVE (NEGATIVE); LEUKOCYTE ESTERASE, URINE AUTO 1+ (NEGATIVE); NITRITE, URINE AUTO NEGATIVE (NEGATIVE); PROTEIN, URINE AUTO 3+ mg/dL (NEGATIVE); RBC, URINE AUTO 0 /HPF (0-3); SPECIFIC GRAVITY URINE AUTO 1.009 (1.002-1.035); SQUAMOUS EPITHELIAL CELL UR AU 1 /HPF (0-6); UROBILINOGEN, URINE AUTO 0.2 mg/dL (0.0-2.0); WBC, URINE AUTO 6 /HPF (0-3)
[2025-04-04 18:56] LABS: CREATININE, URINE 42.7 MG/DL
[2025-04-04 19:04] LABS: IRON (FE) 49.0 UG/DL (50-170)
[2025-04-04 19:06] LABS: CALCIUM LEVEL 9.2 MG/DL (8.3-10.6); CARBON DIOXIDE LEVEL 28.0 MMOL/L (20-31); CHLORIDE LEVEL 100.0 MMOL/L (98-107); CREATININE FOR GFR 2.06 MG/DL (0.55-1.30); GLOMERULAR FILTRATION RATE 26.4 (>45); MAGNESIUM LEVEL 1.5 MG/DL (1.8-2.4); POTASSIUM SERUM 5.0 MMOL/L (3.5-5.1); SODIUM LEVEL 135.0 MMOL/L (136-145)
[2025-04-04 19:09] LABS: MALB URINE SIEMENS 990.0 MG/L; MAU/CREAT RATIO 2318.5 MCG/MG (0.0-30.0)
== END ==
LOC: M SFHCLERA 14:23
PROVIDERS: ATTEND Internal Medicine
DX: E61.2 Magnesium deficiency (principal); E80.1 Porphyria cutanea tarda

== ENCOUNTER → 2025-04-11 | Outpatient (REF) | payer OTHER, MEDICAID ==
[2025-04-11 20:02] LABS: ALT/SGPT < 9 U/L (7.0-40); AST/SGOT 15 U/L (<34); CALCIUM LEVEL 9.0 MG/DL (8.3-10.6); CARBON DIOXIDE LEVEL 25 MMOL/L (20-31); CHLORIDE LEVEL 102 MMOL/L (98-107); CREATININE FOR GFR 2.32 MG/DL (0.55-1.30); GLOMERULAR FILTRATION RATE 22.9 (>45); MAGNESIUM LEVEL 1.5 MG/DL (1.8-2.4); PHOSPHORUS LEVEL 4.4 MG/DL (2.4-5.1); POTASSIUM SERUM 4.6 MMOL/L (3.5-5.1); SODIUM LEVEL 136 MMOL/L (136-145)
[2025-04-11 20:07] LABS: BASO # 0.1 10^3/uL (0.0-0.2); BASO % 1.0 % (0.0-1.0); EOS # 0.2 10^3/uL (0.0-0.5); EOS % 2.9 % (0.0-3.0); LYMPH # 1.5 10^3/uL (1.5-5.0); LYMPH % 25.7 % (24.0-44.0); MONO # 0.6 10^3/uL (0.0-0.8); MONO % 10.9 % (2.0-8.0); NEUTROPHILS # 3.4 10^3/uL (1.5-8.5); NEUTROPHILS % 59.0 % (36.0-66.0); PLATELET COUNT, AUTOMATED 168 10^3/uL (150-450)
== END ==
LOC: M SFHCLERA 11:42
PROVIDERS: ATTEND Internal Medicine
DX: I12.9 Hypertensive chronic kidney disease with stage 1 through stage 4 chronic kidney disease, or unspecified chronic kidney disease (principal)

== ENCOUNTER 2025-04-21 11:14 | Emergency (ER) | payer OTHER, MEDICAID ==
[~2025-04-21] VITALS: Ht 157.5 cm; Wt 55.9 kg
[2025-04-21 11:16] VITALS: BP 187/79; TEMP 96.9; O2SAT 96
[2025-04-21] MEDS ORDERED: AMLO1TAB24 (11:26)
[2025-04-21] MEDS ORDERED: DUPI300P (11:26)
[2025-04-21] MEDS ORDERED: ATOR40TA75 (11:26)
[2025-04-21] MEDS ORDERED: MAG-400T7 (11:26)
[2025-04-21] MEDS ORDERED: ASPI81CH48 (11:26)
[2025-04-21 11:46] LABS: KETONE, URINE AUTO RFX NEGATIVE (NEGATIVE); MUCUS, URINE RFX SMALL (NEGATIVE); NITRITE, URINE AUTO RFX NEGATIVE (NEGATIVE); RBC, URINE AUTO RFX 4 /HPF (0-3); SQUAM EPITHELIAL CELL UR AURFX 10 /HPF (0-6)
[2025-04-21 11:48] LABS: LEUKOCYTE ESTERASE UR AUTO RFX 3+ (NEGATIVE); WBC, URINE AUTO RFX 42 /HPF (0-3)
== END 2025-04-21 11:32 | disposition left against medical advice (07) ==
LOC: M ED 11:14
DX: Z53.21 Procedure and treatment not carried out due to patient leaving prior to being seen by health care provider (principal)

== ENCOUNTER 2025-05-02 09:21 | Inpatient (IN) | payer MEDICARE, OTHER ==
[~2025-05-02] VITALS: Ht 157.5 cm; Wt 58.0 kg
[~2025-05-02 09:21] MED LIST changes: +ASPI81CH48 PO; +ATOR40TA75; +DUPI300P INJ; +MAG-400T7 PO
[2025-05-02 10:26] LABS: BASO # 0.1 10^3/uL (0.0-0.2); BASO % 1.3 % (0.0-1.0); EOS # 0.2 10^3/uL (0.0-0.5); EOS % 3.9 % (0.0-3.0); LYMPH # 1.0 10^3/uL (1.5-5.0); LYMPH % 18.2 % (24.0-44.0); MONO # 0.5 10^3/uL (0.0-0.8); MONO % 8.7 % (2.0-8.0); NEUTROPHILS # 3.6 10^3/uL (1.5-8.5); NEUTROPHILS % 67.5 % (36.0-66.0); PLATELET COUNT, AUTOMATED 168 10^3/uL (150-450)
[2025-05-02 10:31] LABS: INR 1.13
[2025-05-02 10:39] LABS: CALCIUM LEVEL 9.6 MG/DL (8.3-10.6); CARBON DIOXIDE LEVEL 26 MMOL/L (20-31); CHLORIDE LEVEL 105 MMOL/L (98-107); CREATININE FOR GFR 1.95 MG/DL (0.55-1.30); GLOMERULAR FILTRATION RATE 28.2 (>45); POTASSIUM SERUM 4.9 MMOL/L (3.5-5.1); SODIUM LEVEL 140 MMOL/L (136-145)
[2025-05-02] MEDS ORDERED: ATOR80TA59 PO (12:20)
[2025-05-02] MEDS ORDERED: VITA1CAP25 PO (12:20)
[2025-05-02] MEDS ORDERED: ZINC220CA PO (12:20)
[2025-05-02] MEDS ORDERED: HOME MED LIST COMPLETE! XX SCH (12:25)
[2025-05-02] MEDS: amLODIPine 10 MG TAB PO ONE (12:57)
[2025-05-02 14:16] LABS: ETHYL ALCOHOL (ETHANOL) < 0.003 % (0.000-0.010)
[2025-05-02 14:17] LABS: CK-MB VALUE MASS 1.3 NG/ML (<3.6)
[2025-05-02 14:18] LABS: CPK CREATINE PHOSPHOKINASE < 15 U/L (34-145); MB/CK RELATIVE INDEX 0.00 (< OR =4); SALICYLATE LEVEL < 3.0 MG/DL (<30)
[2025-05-02 15:23] LABS: KETONE, URINE AUTO RFX NEGATIVE (NEGATIVE); NITRITE, URINE AUTO RFX NEGATIVE (NEGATIVE); RBC, URINE AUTO RFX 1 /HPF (0-3); SQUAM EPITHELIAL CELL UR AURFX 0 /HPF (0-6); WBC, URINE AUTO RFX 2 /HPF (0-3)
[2025-05-02 15:42] LABS: LEUKOCYTE ESTERASE UR AUTO RFX TRACE (NEGATIVE)
[2025-05-02 15:52] LABS: AMPHETAMINES LEVEL URINE NEGATIVE (NEGATIVE)
[2025-05-02 15:53] LABS: BENZODIAZEPINES URINE NEGATIVE (NEGATIVE)
[2025-05-02 15:54] LABS: BARBITURATES URINE NEGATIVE (NEGATIVE); CANNABINOIDS URINE NEGATIVE (NEGATIVE); COCAINE METABOLITE URINE NEGATIVE (NEGATIVE); METHADONE URINE NEGATIVE (NEGATIVE); OPIATES URINE NEGATIVE (NEGATIVE); PHENCYCLIDINE URINE NEGATIVE (NEGATIVE)
[2025-05-02] MEDS ORDERED: MOM 30 ML SUSPENSION UDC PO PRN (20:55)
[2025-05-02] MEDS ORDERED: ACETAMINOPHEN 325 MG TAB PO PRN (20:55)
[2025-05-02] MEDS ORDERED: MAALOX 30 ML SUSP *UDC PO PRN (20:55)
[2025-05-03] VITALS (7 sets, daily range): BP systolic 158–187; BP diastolic 71–91; TEMP 96.2–97.2; O2SAT 93–97
[2025-05-03 05:49] LABS: PLATELET COUNT, AUTOMATED 187 10^3/uL (150-450)
[2025-05-03 06:00] LABS: ESTIMATED AVERAGE GLUCOSE 94.0 MG/DL (60-110)
[2025-05-03 06:13] LABS: CHOLESTEROL LEVEL 150.0 MG/DL (<200); CHOLESTEROL RISK RATIO 5.17 (<5); LDL CHOLESTEROL 87.8 MG/DL (<100); NON-HDL-C 121.0 MG/DL; TRIGLYCERIDES LEVEL 166.0 MG/DL (<150)
[2025-05-03 06:14] LABS: ALT/SGPT 30.0 U/L (7.0-40); AST/SGOT 36.0 U/L (<34); CALCIUM LEVEL 9.4 MG/DL (8.3-10.6); CARBON DIOXIDE LEVEL 23.0 MMOL/L (20-31); CHLORIDE LEVEL 108.0 MMOL/L (98-107); CREATININE FOR GFR 1.81 MG/DL (0.55-1.30); GLOMERULAR FILTRATION RATE 30.9 (>45); MAGNESIUM LEVEL 1.9 MG/DL (1.8-2.4); POTASSIUM SERUM 5.2 MMOL/L (3.5-5.1); SODIUM LEVEL 140.0 MMOL/L (136-145)
[2025-05-03 08:19] LABS: FREE T4 0.88 NG/DL (0.89-1.76)
[2025-05-03] MEDS: ADVAIR HFA 115/21 MCG INHALER INH SCH (08:52)
[2025-05-03] MEDS: TIOTROPIUM BROM 2.5MCG/ACTUATION 4GM INH INH SCH (08:52)
[2025-05-03] MEDS ORDERED: ASPIRIN 81 MG ENTERIC TABLET PO SCH (09:00)
[2025-05-03] MEDS ORDERED: amLODIPine 10 MG TAB PO SCH (09:00)
[2025-05-03] MEDS: PANTOPRAZOLE 40MG VIAL IV SCH (09:52)
[2025-05-03] MEDS: amLODIPine 5 MG TAB PO SCH (09:55)
[2025-05-03] MEDS: ASPIRIN 81 MG CHEWABLE TABLET PO SCH (09:55)
[2025-05-03] MEDS: CLOPIDOGREL 75 MG TAB PO SCH (09:55)
[2025-05-03] MEDS: ZINC SULFATE 220 MG CAP PO SCH (09:55)
[2025-05-03] MEDS: ATORVASTATIN 20 MG TAB PO SCH (09:56)
[2025-05-03] MEDS: FOLIC ACID 1 MG TAB PO SCH (09:56)
[2025-05-03] MEDS: MAGNESIUM OXIDE 400 MG TAB PO SCH (09:56)
[2025-05-03] MEDS: ENOXAPARIN 40 MG/0.4 ML SYRINGE (J1650 PER 10MG) SC SCH (09:57)
[2025-05-03] MEDS: PATIROMER SORBITEX CALCIUM 8.4GM POWDER PACKET PO ONE (09:58)
[2025-05-03] MEDS: NS (Normal Saline) 0.9% 1,000 ML IV SCH (09:59)
[2025-05-03] MEDS ORDERED: IPRATROPIUM 0.5 MG/ALBUTEROL 2.5 MG INH SOL UD 3 ML NEB PRN (10:55)
[2025-05-03] MEDS: LEVOTHYROXINE 25 MCG TABLET (0.025MG) PO SCH (15:54)
[2025-05-03] MEDS: **hydrALAZINE HCL** 25 MG TAB PO SCH (16:07)
[2025-05-03] MEDS: amLODIPine 5 MG TAB PO ONE (16:07)
[2025-05-03] MEDS: FLUZONE VACCINE TRI PF(25-26) 0.5ML SYRINGE IM.IMMUN ONE (16:13)
[2025-05-03] MEDS ORDERED: ATORVASTATIN 20 MG TAB PO ONE (20:00)
[2025-05-04] VITALS (7 sets, daily range): BP systolic 152–178; BP diastolic 72–84; TEMP 97.3–98; O2SAT 95–97
[2025-05-04 05:40] LABS: BASO # 0.1 10^3/uL (0.0-0.2); BASO % 0.7 % (0.0-1.0); EOS # 0.3 10^3/uL (0.0-0.5); EOS % 5.0 % (0.0-3.0); LYMPH # 1.6 10^3/uL (1.5-5.0); LYMPH % 23.2 % (24.0-44.0); MONO # 0.5 10^3/uL (0.0-0.8); MONO % 7.5 % (2.0-8.0); NEUTROPHILS # 4.3 10^3/uL (1.5-8.5); NEUTROPHILS % 63.3 % (36.0-66.0); PLATELET COUNT, AUTOMATED 157 10^3/uL (150-450)
[2025-05-04 06:21] LABS: ALT/SGPT 24.0 U/L (7.0-40); AST/SGOT 30.0 U/L (<34); CALCIUM LEVEL 9.2 MG/DL (8.3-10.6); CARBON DIOXIDE LEVEL 23.0 MMOL/L (20-31); CHLORIDE LEVEL 106.0 MMOL/L (98-107); CREATININE FOR GFR 1.78 MG/DL (0.55-1.30); GLOMERULAR FILTRATION RATE 31.5 (>45); MAGNESIUM LEVEL 1.7 MG/DL (1.8-2.4); POTASSIUM SERUM 4.7 MMOL/L (3.5-5.1); SODIUM LEVEL 140.0 MMOL/L (136-145)
[2025-05-04] MEDS: amLODIPine 10 MG TAB PO SCH (08:40)
[2025-05-04] MEDS ORDERED: CARV12.5 PO (10:02)
[2025-05-04] MEDS ORDERED: LEVO25TA5 PO (10:02)
[2025-05-04] MEDS ORDERED: AMLO1TAB25 PO (10:02)
[2025-05-04] MEDS ORDERED: CLOP75TA2 PO (10:02)
[2025-05-04] MEDS ORDERED: CARV25TA PO (11:40)
[2025-05-07] MEDS ORDERED: VITAMIN D 50,000 UNITS CAPSULE (ERGOCALCIFEROL 1.25MG) PO SCH (09:00)
== END 2025-05-04 14:00 | disposition home health service (06) | DRG 66 ==
LOC: EDBD 09:21 → M ED 09:21 → M ED INP 20:51 → M MS4PR 05-03 00:45
PROVIDERS: ADMIT Student in an Organized Health Care Education/Training Program; ATTEND Internal Medicine
DX: I63.9 Cerebral infarction, unspecified (principal); N18.30 Chronic kidney disease, stage 3 unspecified; I25.10 Atherosclerotic heart disease of native coronary artery without angina pectoris; Z95.2 Presence of prosthetic heart valve; F17.200 Nicotine dependence, unspecified, uncomplicated; E55.9 Vitamin D deficiency, unspecified; E87.5 Hyperkalemia; F10.10 Alcohol abuse, uncomplicated; E03.9 Hypothyroidism, unspecified; J44.9 Chronic obstructive pulmonary disease, unspecified; I69.398 Other sequelae of cerebral infarction; I12.9 Hypertensive chronic kidney disease with stage 1 through stage 4 chronic kidney disease, or unspecified chronic kidney disease; I73.9 Peripheral vascular disease, unspecified; Z98.41 Cataract extraction status, right eye; Z98.42 Cataract extraction status, left eye; E78.5 Hyperlipidemia, unspecified; Z79.899 Other long term (current) drug therapy; Z79.82 Long term (current) use of aspirin